=== PATIENT | female | born 1965 | race Caucasian/White ===

== ENCOUNTER → 2018-06-22 | Outpatient (CLI) | payer OTHER, SELFPAY ==
[2018-06-22 11:38] VITALS: BMI 33.5
[2018-06-22 14:39] LABS: Anion Gap 5 (5-15); BUN 15 mg/dL (7-18); BUN/Creat Ratio 24.6 RATIO (10-20); Calcium,Total 8.8 mg/dL (8.5-10.1); Chloride 110 mmol/L (98-107); Creatinine, Serum 0.61 mg/dL (0.55-1.02); EST Glomerular Filtration Rate 108 mL/min (>60); Est Glom Filt Rate - Afr Amer 131 mL/min (>60); Glucose 83 mg/dL (74-106); Potassium 3.9 mmol/L (3.5-5.1); Sodium Level 140 mmol/L (136-145)
[2018-06-22 14:49] LABS: Vitamin D,25 Hydroxy 16.9 ng/mL (29.95-100.01)
== END | disposition home or self-care (01) ==
LOC: BIMLAB 12:08
PROVIDERS: PCP Family Medicine; Visit Provider Family Medicine
DX: I10 Essential (primary) hypertension (principal); R79.89 Other specified abnormal findings of blood chemistry
CPT/HCPCS: 36415; 80048; 82306

== ENCOUNTER → 2019-05-04 14:56 | Outpatient (CLI) | payer OTHER, SELFPAY ==
[2019-05-04 14:17] VITALS: BMI 33.5
[2019-05-04 16:06] LABS: Anion Gap 7 (5-15); BUN 16 mg/dL (7-18); BUN/Creat Ratio 21.6 RATIO (10-20); Calcium,Total 8.6 mg/dL (8.5-10.1); Chloride 108 mmol/L (98-107); Creatinine, Serum 0.74 mg/dL (0.55-1.02); EST Glomerular Filtration Rate 86 mL/min (>60); Est Glom Filt Rate - Afr Amer 104 mL/min (>60); Glucose 136 mg/dL (74-106); Potassium 3.8 mmol/L (3.5-5.1); Sodium Level 141 mmol/L (136-145)
[2019-05-06 08:08] LABS: Vitamin D,25 Hydroxy 27.1 ng/mL
== END ==
PROVIDERS: PCP Family Medicine; Referring Provider Family Medicine; Visit Provider Family Medicine
DX: R79.89 Other specified abnormal findings of blood chemistry (principal); I10 Essential (primary) hypertension
CPT/HCPCS: 36415; 80048; 82306

== ENCOUNTER → 2020-07-03 10:56 | Outpatient (CLI) | payer OTHER, SELFPAY ==
[2020-07-03 10:29] VITALS: BMI 33.5
[2020-07-03 12:50] LABS: ALB/GLOB Ratio 0.9 RATIO (0.9-2.4); AST(SGOT) 12 U/L (15-37); Alanine Aminotransfer ALT/SGPT 21 U/L (13-56); Albumin, Serum 3.5 g/dL (3.2-5.0); Alkaline Phosphatase 96 U/L (45-117); Anion Gap 6 (5-15); BUN 17 mg/dL (7-18); BUN/Creat Ratio 24.5 RATIO (10-20); Calcium,Total 8.9 mg/dL (8.5-10.1); Chloride 109 mmol/L (98-107); Cholesterol 198 mg/dL (200); Creatinine, Serum 0.69 mg/dL (0.55-1.02); EST Glomerular Filtration Rate 93 mL/min (>60); Est Glom Filt Rate - Afr Amer 112 mL/min (>60); Globulin 3.8 g/dL (2.2-4.2); Glucose 111 mg/dL (74-106); High Density Lipoprotein 72 mg/dL; Protein, Total 7.3 g/dL (6.4-8.2); Sodium Level 141 mmol/L (136-145); Triglycerides 68 mg/dL; Very Low Density Lipoprotein 14 mg/dL (5-40)
== END ==
PROVIDERS: PCP Family Medicine; Referring Provider Family Medicine; Visit Provider Family Medicine
DX: I10 Essential (primary) hypertension (principal)
CPT/HCPCS: 36415; 80053; 80061

== ENCOUNTER → 2021-06-26 | Outpatient (CLI) | payer OTHER, SELFPAY ==
[2021-06-26 12:30] LABS: Absolute Lymphocyte Count 1.65 X10^3/uL (0.83-4.51); Absolute Neutrophil Count 2.7 X10^3/uL (2.0-7.7); Basophil# 0.04 X10^3/uL; Basophil% 0.8 % (0-1); Eosinophil# 0.08 X10^3/uL; Eosinophils% 1.6 % (0-5); Hematocrit 43.8 % (37-47); Hemoglobin 14.3 g/dL (12.0-15.0); Lymphocyte # 1.65 X10^3/ul (0.83-4.51); Lymphocyte % 33.8 % (19-41); Mean Corp Hgb Conc 32.6 g/dL (32-36); Mean Corpuscular Hgb 30.5 pg (27.0-32.0); Mean Corpuscular Volume 93.4 fL (81-99); Mean Platelet Vol. 9.8 fl (6.2-12.0); Monocyte# 0.41 X10^3/uL; Monocyte% 8.4 % (0-10); NRBC Flagged by Analyzer 0 % (0-5); Neutrophil # 2.69 X10^3/uL (2.7-7.7); Neutrophil % 55.2 % (47-70); Platelet Count 317 K/mm3 (150-450); RBC Distribution Width CV 12.9 % (11.6-14.6); RBC Distribution Width SD 44.6 fl (35.1-43.9); Red Blood Count 4.69 M/mm3 (4.2-5.4); White Blood Count 4.9 K/mm3 (4.4-11.0)
[2021-06-26 12:34] LABS: AST(SGOT) 17 U/L (15-37); Alanine Aminotransfer ALT/SGPT 26 U/L (13-56); Albumin, Serum 3.8 g/dL (3.2-5.0); Alkaline Phosphatase 96 U/L (45-117); Anion Gap 2 (5-15); BUN 20 mg/dL (7-18); BUN/Creat Ratio 28.5 RATIO (10-20); Calcium,Total 9.3 mg/dL (8.5-10.1); Chloride 108 mmol/L (98-107); EST Glomerular Filtration Rate 91 mL/min (>60); Est Glom Filt Rate - Afr Amer 111 mL/min (>60); Globulin 3.8 g/dL (2.2-4.2); Glucose 105 mg/dL (74-106); Potassium 4.3 mmol/L (3.5-5.1); Protein, Total 7.6 g/dL (6.4-8.2); Sodium Level 139 mmol/L (136-145)
== END | disposition home or self-care (01) ==
LOC: BIMLAB 11:12
PROVIDERS: PCP Family Medicine; Referring Provider Family Medicine; Visit Provider Family Medicine
DX: I10 Essential (primary) hypertension (principal); Z98.890 Other specified postprocedural states
CPT/HCPCS: 36415; 80053; 85025

== ENCOUNTER → 2022-02-03 | Outpatient (CLI) | payer OTHER, SELFPAY ==
[2022-02-03 16:49] LABS: Absolute Lymphocyte Count 2.88 X10^3/uL (0.83-4.51); Absolute Neutrophil Count 3.6 X10^3/uL (2.0-7.7); Basophil# 0.05 X10^3/uL; Basophil% 0.7 % (0-1); Eosinophil# 0.14 X10^3/uL; Eosinophils% 1.9 % (0-5); Hematocrit 42.4 % (37-47); Hemoglobin 13.6 g/dL (12.0-15.0); Lymphocyte # 2.88 X10^3/ul (0.83-4.51); Lymphocyte % 39.8 % (19-41); Mean Corp Hgb Conc 32.1 g/dL (32-36); Mean Corpuscular Hgb 31.1 pg (27.0-32.0); Monocyte# 0.58 X10^3/uL; NRBC Flagged by Analyzer 0 % (0-5); Neutrophil # 3.57 X10^3/uL (2.7-7.7); Neutrophil % 49.3 % (47-70); Platelet Count 312 K/mm3 (150-450); RBC Distribution Width CV 13.2 % (11.6-14.6); Red Blood Count 4.37 M/mm3 (4.2-5.4); White Blood Count 7.2 K/mm3 (4.4-11.0)
[2022-02-03 17:49] LABS: ALB/GLOB Ratio 1.2 RATIO (0.9-2.4); AST(SGOT) 14 U/L (15-37); Alanine Aminotransfer ALT/SGPT 27 U/L (13-56); Albumin, Serum 3.6 g/dL (3.2-5.0); Alkaline Phosphatase 95 U/L (45-117); Anion Gap 7 (5-15); BUN 19 mg/dL (7-18); BUN/Creat Ratio 24.2 RATIO (10-20); CRP < 2.90 mg/L (0.0-3.0); Calcium,Total 8.9 mg/dL (8.5-10.1); Chloride 106 mmol/L (98-107); Creatinine, Serum 0.78 mg/dL (0.55-1.02); EST Glomerular Filtration Rate 80 mL/min (>60); Est Glom Filt Rate - Afr Amer 97 mL/min (>60); Globulin 3.1 g/dL (2.2-4.2); Glucose 92 mg/dL (74-106); Potassium 4.1 mmol/L (3.5-5.1); Protein, Total 6.7 g/dL (6.4-8.2); Sodium Level 141 mmol/L (136-145)
== END | disposition home or self-care (01) ==
LOC: BIMLAB 15:42
PROVIDERS: PCP Family Medicine
DX: K62.5 Hemorrhage of anus and rectum (principal); K52.9 Noninfective gastroenteritis and colitis, unspecified
CPT/HCPCS: 36415; 80053; 85025; 86140

== ENCOUNTER → 2022-06-08 | Outpatient (CLI) | payer OTHER, SELFPAY | END | disposition home or self-care (01) | LOC: SL 10:04 | PROVIDERS: PCP Family Medicine; Referring Provider Internal Medicine; Visit Provider Internal Medicine | DX: G47.33 Obstructive sleep apnea (adult) (pediatric) (principal) | CPT/HCPCS: 98960; G0463 ==

== ENCOUNTER → 2022-06-10 | Outpatient (CLI) | payer OTHER, SELFPAY | END | disposition home or self-care (01) | LOC: SL 20:05 | PROVIDERS: PCP Family Medicine; Referring Provider Internal Medicine; Visit Provider Internal Medicine | DX: G47.33 Obstructive sleep apnea (adult) (pediatric) (principal) | CPT/HCPCS: 95810 ==

== ENCOUNTER → 2022-06-30 | Outpatient (CLI) | payer OTHER, SELFPAY | END | disposition home or self-care (01) | LOC: SL 10:19 | PROVIDERS: PCP Family Medicine; Visit Provider Internal Medicine | DX: G47.33 Obstructive sleep apnea (adult) (pediatric) (principal); Z99.89 Dependence on other enabling machines and devices ==

== ENCOUNTER → 2024-08-23 | Outpatient (CLI) | payer OTHER, SELFPAY ==
[2024-08-23 18:59] LABS: AST(SGOT) 23 U/L (<=31); Alanine Aminotransfer ALT/SGPT 19 U/L (<=34); Albumin, Serum 4.2 g/dL (3.4-4.8); Alkaline Phosphatase 90 U/L (35-104); Anion Gap 12 (5-15); BUN 16 mg/dL (4-19); BUN/Creat Ratio 21.0 RATIO (10-20); Calcium,Total 9.3 mg/dL (7.6-11.0); Carbon Dioxide 22.8 mmol/L (21.0-32.0); Chloride 106 mmol/L (98-108); Globulin 2.6 g/dL (2.2-4.2); Glucose 132 mg/dL (70-99); Potassium 3.9 mmol/L (3.3-5.1)
== END | disposition home or self-care (01) ==
LOC: MTLAB 15:04
PROVIDERS: PCP Family Medicine; Referring Provider Family Medicine; Visit Provider Family Medicine
DX: I48.0 Paroxysmal atrial fibrillation (principal); I10 Essential (primary) hypertension
CPT/HCPCS: 36415; 80053; 84443

== ENCOUNTER → 2024-10-17 | Outpatient (CLI) | payer OTHER, SELFPAY ==
--- OUTSIDE RECORDS SUMMARY | 2024-10-17 06:32 | XMS RPT_ITS | CCD ---
Author Organization [facility] Care Team Providers Care Enrollment Eligibility Representative Name Role Phone JACQUIE AGUDELO Unavailable Unavailable BROWN, JACQUIE Unavailable Unavailable Jacquie Agudelo Primary Care Provider [phone] Dr. Jacquie Agudelo Primary Care Provider [phone] Dr. Jacquie Agudelo Attending Provider [phone] Dr. Jacquie Agudelo Referring Provider [phone] Jacquie Agudelo Primary Care Provider [phone] Dr. Jacquie Agudelo Primary Care Provider [phone] Dr. Jacquie Agudelo Referring Provider [phone] Dr. Reza Gonzalez Attending Provider [phone] Jacquie Agudelo Primary Care Provider [phone] TORIE ISBELL Attending Unavailable TORIE ISBELL Referring Unavailable BROWN, JACQUIE Primary Care Unavailable HAY SINCLAIR Attending Unavailable MAGNUS, JACQUIE Primary Care Unavailable HAY SINCLAIR Attending Unavailable JACQUIE AGUDELO Primary Care Unavailable Dr. Jacquie Agudelo DO Primary Care Provider Dr. Jacquie Agudelo DO Attending Provider [phone] Dr. Jacquie Agudelo DO Referring Provider [phone] Wallace MANN, Dr. Robledo Attending Provider Elaina Hernández Attending Provider [phone] BrownJacquie R Attending Unavailable Brown, Jacquie R Referring Unavailable Brown, Jacquie R Primary Care Unavailable Venkat Gonsalez Attending Unavailable Brown, Jacquie R Referring Unavailable Brown, Jacquie R Primary Care Unavailable Brown, Jacquie R Attending Unavailable Brown, Jacquie R Referring Unavailable Brown, Jacquie R Primary Care Unavailable Wallace, Venkat Attending Unavailable Wallace, Venkat Referring Unavailable MagnusJacquie R Primary Care Unavailable Wallace, Venkat Attending Unavailable Wallace, Venkat Referring Unavailable MagnusJacquie R Primary Care Unavailable Mary Grace Cat NP Attending Unavailable MagnusJacquie R Referring Unavailable BrownChonJacquie R Primary Care Unavailable Elaina Coleman Attending Unavailable BrownJacquie R Referring Unavailable BrownChonJacquie R Primary Care Unavailable Medications Current Medications Medication Drug Class(es) Dates Sig (Normalized) Sig (Original) apixaban 5 mg oral tablet (20 sources) Factor Xa Inhibitor Start: 04-11-2022 End: 01-24-2024 take 1 tablet by mouth twice daily Apixaban (Eliquis) 5 mg tablet Active 5 mg PO TWICE A DAY May 26, 2022 12:00am biotin 5 mg oral capsule (20 sources) Start: 07-03-2020 take 1 capsule by mouth once daily Biotin 5 mg capsule Active 5 mg PO DAILY July 03, 2020 12:00am biotin 5000 MCG capsule Take by mouth daily. Active Biotin 10 MG CAP S Take by mouth 0 Active carvedilol 12.5 mg oral tablet (4 sources) alpha-Adrenergic Bonilla, beta-Adrenergic Bonilla Start: 08-23-2024 take 1 tablet by mouth twice daily at mealtime Carvedilol (Coreg) 12.5 mg tablet Active 12.5 mg PO TWICE A DAY 180 August 23, 2024 12:00am must administer with a meal/food cholecalciferol 0.025 mg oral capsule (20 sources) Vitamin D Start: 06-22-2018 take 1 capsule by mouth once daily Cholecalciferol (Vitamin D3) 1,000 unit capsule Active 1000 U PO DAILY June 22, 2018 12:00am take 1 capsule by mouth once jose ly cholecalciferol (Vitamin D-3) 25 MCG (1000 UT) capsule Take 3,000 Units by mouth daily. Active ergocalciferol 1.25 mg oral capsule (1 source) Provitamin D2 Compound Start: 07-05-2018 take 1 capsule by mouth every week vitamin D (ERGOCALCIFEROL) 50291 units CAPS capsule Take 1 capsule by mouth once a week for 12 doses 12 capsule 0 07/05/2018 Active hydroCHLOROthiazide 12.5 mg oral capsule (3 sources) Thiazide Diuretic Start: 07-04-2024 End: 07-04-2025 take 1 capsule by mouth once daily in the morning hydroCHLOROthiazide (Microzide) 12.5 MG capsule Take 1 capsule (12.5 mg) by mouth every morning. 30 capsule 07/04/2024 07/04/2025 Active ibuprofen 600 mg oral tablet (2 sources) Nonsteroidal Anti-inflammator y Drug Start: 10-03-2024 End: 10-03-2024 take 1 tablet by mouth three times daily at mealtime Ibuprofen 600 mg tablet Active 600 mg PO THREE TIMES A DAY 15 October 03, 2024 9:26am Take with food, monitor for signs of bleeding lisinopril 40 mg oral tablet (20 sources) Angiotensin Converting Enzyme Inhibitor Start: 01-04-2024 End: 06-27-2024 take 1 tablet by mouth once daily Lisinopril 40 mg tablet Active 40 mg PO daily February 04, 2024 1:00am Start: 07-20-2023 End: 01-04-2024 take 1 tablet by mouth once daily lisinopril 20 MG tablet Take 1 tablet (20 mg) by mouth daily. 90 tablet 3 07/20/2023 01/04/2024 Discontinued Start: 01-12-2023 End: 01-12-2024 take 1 tablet by mouth once daily lisinopril 10 MG tablet Take 1 tablet (10 mg) by mouth daily. 90 tablet 3 01/12/2023 01/12/2024 Active Start: 05-06-2022 End: 02-04-2024 take 1 tablet by mouth once daily Lisinopril 5 mg tablet Discontinued 5 mg PO DAILY May 26, 2022 12:00am February 04, 2024 3:26pm Completed/Discontinued Medications Medication Drug Class(es) Dates Sig (Normalized) Sig (Original) Acetaminophen (2 sources) Start: 04-09-2022 End: 04-11-2022 take 1 tablet by mouth every six hours as needed for pain and fever acetaminophen (Tylenol) tablet 650 mg amoxicillin 875 mg / clavulanate 125 mg oral tablet (8 sources) Penicillin-class Antibacterial Start: 02-26-2021 End: 06-26-2021 Amoxicillin-Pot Clavulanate (Augmentin) 875-125 mg tablet Discontinued 1 {tbl} PO TWICE A DAY 14 February 26, 2021 1:00am June 26, 2021 10:28am atenolol 25 mg oral tablet (20 sources) beta-Adrenergic Bonilla Start: 12-29-2014 End: 05-26-2022 take 1 tablet by mouth once daily Atenolol 25 mg tablet Discontinued 25 mg PO DAILY 90 0 May 29, 2020 9:20am July 03, 2020 10:41am benzonatate 200 mg oral capsule (8 sources) Non-narcotic Antitussive Start: 02-26-2021 End: 06-26-2021 take 1 capsule by mouth three times daily as needed for cough Benzonatate 200 mg capsule Discontinued 200 mg PO THREE TIMES A DAY as needed for cough 30 0 February 26, 2021 1:00am June 26, 2021 10:28am cinnamon bark 500 mg oral capsule (17 sources) End: 01-04-2024 take 1 capsule by mouth once daily cinnamon 500 MG capsule Take 500 mg by mouth daily. 01/04/2024 Discontinued 5 ml dilTIAZem hydrochloride 5 mg/ml injection (2 sources) Calcium Channel Bonilla Start: 04-09-2022 End: 04-09-2022 dilTIAZem (Cardizem) injection 15 mg doxycycline hyclate 100 mg oral tablet (8 sources) Tetracycline-class Drug Start: 09-13-2019 End: 07-03-2020 take 1 tablet by mouth twice daily Doxycycline Hyclate 100 mg tablet Discontinued 100 mg PO TWICE A DAY 20 0 September 13, 2019 12:00am July 03, 2020 10:27am 20 ml etomidate 2 mg/ml injection (4 sources) General Anesthetic Start: 04-09-2022 End: 04-09-2022 etomidate (Amidate) injection Start: 04-09-2022 End: 04-09-2022 etomidate (Amidate) injectio n 10 mg 2 ml fentaNYL 0.05 mg/ml injection (2 sources) Opioid Agonist Start: 04-09-2022 End: 04-09-2022 fentaNYL (Sublimaze) injection 75 mcg flecainide acetate 50 mg oral tablet (20 sources) Antiarrhythmic Start: 08-19-2022 End: 09-22-2024 take 1 tablet by mouth once daily Flecainide 50 mg tablet Discontinued 50 mg PO DAILY August 19, 2022 12:00am September 22, 2024 11:11am Start: 04-29-2022 End: 07-24-2025 take 1 tablet by mouth twice daily flecainide (Tambocor) 50 MG tablet Take 1 tablet (50 mg) by mouth 2 times daily. 180 tablet 1 01/21/2024 07/24/2024 Discontinued (Reorder) guaiFENesin 400 mg oral tablet (8 sources) Start: 02-26-2021 End: 06-26-2021 take 1 tablet by mouth three times daily as needed for cough Guaifenesin 400 mg tablet Discontinued 400 mg PO THREE TIMES A DAY as needed for congestion, cough 30 0 February 26, 2021 1:00am June 26, 2021 10:28am 250 ml heparin sodium, porcine 100 unt/ml injection (8 sources) Unfractionated Heparin, Anti-coagulant Start: 04-09-2022 End: 04-11-2022 heparin 25,000 units in dextrose 5% 250mL infusion (premix) Start: 04-09-2022 End: 04-11-2022 heparin injection 2,000 Unit s Start: 04-09-2022 End: 04-11-2022 heparin injection 4,000 Unit s metoprolol tartrate 50 mg oral tablet (20 sources) beta-Adrenergic Bonilla Start: 04-26-2022 metopr olol tartrate (Lopressor) injection 5 mg Start: 04-26-2022 metoprolol tar trate (Lopressor) 5 MG/5ML injection - Pyxis ADS Override Pull Start: 04-10-2022 End: 08-23-2024 take 1 tablet by mouth twice daily Metoprolol Tartrate 50 mg tablet Discontinued 50 mg PO TWICE A DAY May 26, 2022 12:00am August 23, 2024 2:27pm Start: 04-10-2022 End: 04-10-2022 metoprolol tartrate (Lopress or) tablet 25 mg Start: 04-09-2022 metoprolol tar trate (Lopressor) tablet 100 mg Start: 04-09-2022 metoprolol tar trate (Lopressor) injection 5 mg Start: 04-09-2022 metoprolol tar trate (Lopressor) 5 MG/5ML injection - Pyxis ADS Override Pull ondansetron ODT (Zofran-ODT) disintegrating tablet 4 mg (2 sources) Start: 04-09-2022 End: 04-11-2022 take 1 tablet by mouth every eight hours as needed for nausea and vomiting ondansetron ODT (Zofran-ODT) disintegrating tablet 4 mg polyethylene glycol 3350 72042 mg powder for oral solution (2 sources) Osmotic Laxative Start: 04-09-2022 End: 04-11-2022 take 17 g by mouth every twenty-four hours as needed for constipation 17 g, Oral, Daily PRN, constipation, Starting on [facility] 04/09/22 at 2013 1st line for treatment of constipation - give scheduled if no bowel movement in past 24 hours. polyethylene glycol 3350 185982 mg / potassium chloride 2970 mg / sodium bicarbonate 6740 mg / sodium chloride 5860 mg / sodium sulfate 57626 mg powder for oral solution (2 sources) Osmotic Laxative Start: 04-10-2022 End: 04-11-2022 polyethylene glycol (GoLYTELY) solution 2,000 mL microencapsulated potassium chloride 10 meq extended release oral tablet (2 sources) Start: 04-09-2022 End: 04-09-2022 potassium chloride CR (Klor-Con M10) ER tablet 40 mEq Sod Sulf-Pot Chloride-Mag Sulf (4 sources) Start: 08-19-2022 End: 02-04-2024 take 1.479 tablets by mouth once Sod Sulf-Pot Chloride-Mag Sulf (Sutab) 1.479-0.188- 0.225 gram tablet Discontinued {tbl} PO per package directions August 19, 2022 12:00am February 04, 2024 3:26pm 5 ml sodium chloride 9 mg/ml injection (14 sources) Start: 04-10-2022 End: 04-11-2022 sodium chloride 0.9% (NS) flush 10 mL Start: 04-09-2022 End: 04-11-2022 sodium chloride 0.9 % infusi on Sutab 3461-388-503 MG tablet (3 sources) Start: 02-10-2022 End: 05-05-2022 Sutab 5193-434-747 MG tablet Start: 02-10-2022 Sutab 1479-225 -188 MG tablet Problems Active Problems Problem Classification Problem Date Documented Date Episodic/Chronic Cardiac dysrhythmias (20 sources) Atrial fibrillation with rapid ventricular response; Translations: [Unspecified atrial fibrillation] Onset: 04-09-2022 Chronic Disorders of teeth and jaw (7 sources) Temporomandibular joint disorder; Translations: [Unspecified temporomandibular joint disorder, unspecified side] Onset: 09-18-2024 08-23-2024 Episodic Endometriosis (20 sources) Endometriosis (clinical); Translations: [Endometriosis, unspecified] Onset: 02-12-2015 02-12-2015 Chronic Essential hypertension (20 sources) Hypertensive disorder; Translations: [Essential (primary) hypertension] Onset: 02-12-2015 02-12-2015 Chronic Malaise and fatigue (2 sources) Fatigue; Translations: [Other fatigue] 09-18-2024 Episodic Menstrual disorders (20 sources) Disorder of menstruation; Translations: [Irregular menstruation, unspecified] Onset: 02-12-2015 02-12-2015 Chronic Nutritional deficiencies (2 sources) Vitamin D deficiency; Translations: [Vitamin D deficiency, unspecified] 09-18-2024 Chronic Other lower respiratory disease (7 sources) Snoring; Translations: [Snoring] 05-26-2022 Episodic Comment on above: 56-year-old female r eferred to [facility] for consultation for sleep apnea, referred by her primary in the setting of paroxysmal atrial fibrillation.Her [place] sleepiness score today is 6, the mMRC score is 1.As above, rule out sleep apnea in this patient with a strong family history Other lower respiratory disease (3 sources) Snoring; Translations: [Other respiratory abnormalities] 05-26-2022 Episodic Other lower respiratory disease (1 source) Cough; Translations: [Acute cough] 08-05-2022 Episodic Other non-traumatic joint disorders (3 sources) Pain in right knee; Translations: [Right knee pain] Onset: 10-03-2024 10-03-2024 Episodic Other nutritional; endocrine; and metabolic disorders (8 sources) Obesity; Translations: [Obesity, unspecified] 05-26-2022 Chronic Comment on above: BMI 37 Other nutritional; endocrine; and metabolic disorders (4 sources) Obesity, unspecified; Translations: [Obesity, unspecified] Chronic Regional enteritis and ulcerative colitis (2 sources) Crohn's disease; Translations: [Crohn's disease, unspecified, without complications] 09-18-2024 Chronic Residual codes; unclassified (6 sources) Obstructive sleep apnea (adult) (pediatric); Translations: [Obstructive sleep apnea (adult)(pediatric)] Onset: 07-04-2024 05-26-2022 Chronic Residual codes; unclassified (12 sources) Obstructive sleep apnea syndrome; Translations: [Obstructive sleep apnea (adult) (pediatric)] 01-12-2023 Chronic Comment on above: AutoPap with AHI 14. 4 baseline Residual codes; unclassified (1 source) Other specified postprocedural states; Translations: [Other postprocedural status] Episodic Residual codes; unclassified (2 sources) Acquired absence of other specified parts of digestive tract; Translations: [Acquired absence of other specified parts of digestive tract] Onset: 12-07-2021 Episodic Past or Other Problems Problem Classification Problem Date Documented Da te Episodic/Chronic Gastrointestinal hemorrhage (20 sources) Blood-tinged feces; Translations: [Melena] Onset: 04-09-2022 04-10-2022 Episodic Other screening for suspected conditions (not mental disorders or infectious disease) (9 sources) Patient encounter status; Translations: [Encounter for screening mammogram for malignant neoplasm of breast] Onset: 02-03-2024 01-26-2023 Episodic Residual codes; unclassified (20 sources) History of partial resection of colon; Translations: [Acquired absence of other specified parts of digestive tract] Onset: 02-12-2015 02-12-2015 Episodic Results Test Name Value Interpretation Reference Range Facility Internal Medicine Office Vis [facility] 10-03-2024 Internal Medicine Office Visit [facility] [place] [address] OFFICE VISIT Date of Service: 10/03/24 MR#: [id number] Acct: [id number] Name: LINSEY JENSEN Rep #: [id number] : 1965 Provider: MAURIZIO wallis Age/Sex: 58/F Location: [facility] Status: Signed Intake Vital Signs 09/22/24 11:07 10/03/24 08:45 Height 5 ft 8 in 5 ft 8 in Weight: 244 lb 243 lb 4 oz BMI 37.0 37.0 BP 131/80 H 120/84 H Blood Pressure Location Lt brachial Lt brachial Position Sitting Sitting Respiration 18 16 Pulse 89 85 Pulse Source Monitor Monitor Temp 97.4 F L Temp Source Temporal Pulse Oximetry (%) 97 Oxygen Delivery Method room air Intake Visit Reasons: Leg pain. Around knee. Chief Complaint: Acute R Knee Pain [employer] Required: No Accompanied by: Self Is patient in pain?: No (no pain, but will later in the day) Allergies No Known Allergies Allergy (Unverified 10/03/24 08:40) Medications ???Medication ???Instructions ???Recorded ???Confirmed ???Type cholecalciferol (vitamin D3) 25 1,000 unit PO DAILY 06/22/1810/03 History mcg (1,000 unit) capsule biotin 5 mg capsule 5 mg PO DAILY 07/03/20 10/03/24 Hi story apixaban 5 mg tablet (Eliquis) 5 mg PO BID 05/26/22 10/03/24 Hist ory lisinopril 40 mg tablet 40 mg PO QDAY 02/04/24 10/03/24 Hi story carvedilol 12.5 mg tablet (Coreg) 12.5 mg PO BID #180 tabs 08/23/24 10/03/24 Rx ibuprofen 600 mg tablet 600 mg PO TID #15 tabs 10/03/24 Rx Have you fallen in the past year?: Yes (Early Feb. ) Nurse's Note: 58 year old F patient presents with R knee pain. Says the pain is mainly in the evenings after physical activity throughout the day. The pain is a 7/10 at night, sometimes leaves her in tears before bed. Says the pain is mostly medially toward the distal part of the knee, away from the knee cap. Has little to no edma around the knee or location of pain. Says there was no injury to cause the pain. [facility] Medical History Vitamin D deficiency Crohn disease Fatigue TMJ (temporomandibular joint syndrome) TATIANA (obstructive sleep apnea) Obesity Paroxysmal atrial fibrillation Hypertension Surgical History Hx of appendectomy History of intestinal surgery History of lung surgery Family History Grandmother Colon cancer Father Cancer skin Bone cancer Heart disease Social History Smoking Status: Never smoker alcohol intake: never substance use type: does not use what type of physical activity do you participate in: none HPI HPI Chief Complaint: Acute R Knee Pain Details: LINSEY JENSEN, is a 58 F who presents to the office today for right knee pain x 2 weeks. She states it started without injury and continues to notice the pain throughout the day to the inner aspect of the knee and it is worse at night. It is hard for her to be comfortable at night as that is when she notices that the pain is worse and it improves throughout the night and is better in the morning. She reports pain on the right inner aspect of the knee that feels deep and worse after activity. She denies any trauma or recent injury. She has been able to complete ADLs. She has taken ibuprofen twice over the last 2 weeks and also used ice on the knee and it seems to help somewhat. She states in the mornings it feels well but by evening it is very painful. Denies severe pain at this time. Past medical history of Crohn's disease, fatigue, sleep apnea, A-fib, obesity, and hypertension. ROS Const Constitutional: No body ache, chills, excessive sweating, fatigue, fever(s), frequent falls, headache(s), snoring, weakness, weight change, sleep problems or change in appetite Eyes Eyes: No blurry vision, change in vision, eye pain or Light sensitivity ENT ENT: No abnormal hearing, ear or mastoid pain, tinnitus, nasal congestion, headache(s), neck pain or sore throat Resp Respiratory: No cough, shortness of breath, snoring or wheezing Cardio Cardiology: No chest pain at rest, chest pain with exertion, excessive sweating, shortness of breath, lightheadedness, orthopnea or palpitations Gastro GI: No abdominal pain, change in bowel habits, constipation, cramping, diarrhea, nausea/dyspepsia or vomiting Genitourinary-Female: No burning urination, painful urination, urinary incontinence, urinary frequency, abnormal vaginal bleeding or pelvic pain Musc Musculoskeletal: Positive for other; No abnormal gait, joint pain, back pain, limited range of motion, neck pain, numbness or tingling Skin Skin: No dry skin, redness, lesions, itchy eyes, rash or wounds Neuro Neurology: No (more content not included)... [facility] Cardiology Visit Reporton Cardiology Visit Report [facility] [address] [place] [address] OFFICE VISIT Date of Service: 09/22/24 MR#: [id number] Acct: [id number] Name: LINSEY JENSEN Rep #: [id number] : 1965 Provider: Dr. Venkat Gonsalez MD Age/Sex: 58/F Location: [facility] Status: Signed HPI HPI History of Present Illness Details: 58-year-old lady who had presented to the hospital in [place] during the time of her colonoscopy approximately 2 years ago. At that time she was noted to be in atrial fibrillation with a rapid ventricular response rate and she was also noted to be hypotensive. She was started on metoprolol and Eliquis admitted to the hospital and apparently converted into sinus rhythm during the night. She had been offered synchronized DC cardioversion but she had declined it. She says that approximately a month afterwards she presented again with a similar thing and spontaneously converted. This was after she had been given intravenous metoprolol. As an outpatient it appears that she was started on flecainide and then asked to see her primary physician for control of her blood pressure. She tells me that her primary physician was not keen on her continuing the flecainide and so she decided that she was going to stop this. She has been diagnosed with obstructive sleep apnea and now wears a CPAP mask her blood pressure has been much better controlled. Her ejection fraction by echocardiogram in March 2022 demonstrated an ejection fraction of 74%. She has had no dizziness or diaphoresis no near-syncope or syncope. Her physical exam is unremarkable her electrocardiogram demonstrates sinus rhythm with a rate of 79 bpm and no acute changes. Intake Vital Signs 08/23/24 14:06 09/22/24 11:07 Height 5 ft 8 in 5 ft 8 in Weight: 248 lb 4 oz 244 lb BMI 37.7 37.0 BP 136/84 H 131/80 H Blood Pressure Location Lt brachial Lt brachial Position Sitting Sitting Respiration 16 18 Pulse 75 89 Pulse Source Monitor Monitor Temp 97.4 F L Pulse Oximetry (%) 96 Intake Visit Reasons: ESTABLISH (SELF) [employer] Required: No Accompanied by: Self Is patient in pain?: No Allergies No Known Allergies Allergy (Unverified 09/22/24 11:07) Medications ???Medication ???Instructions ???Recorded ???Confirmed ???Type cholecalciferol (vitamin D3) 25 1,000 unit PO DAILY 06/22/1809/22 History mcg (1,000 unit) capsule biotin 5 mg capsule 5 mg PO DAILY 07/03/20 09/22/24 Hi story apixaban 5 mg tablet (Eliquis) 5 mg PO BID 05/26/22 09/22/24 Hist ory lisinopril 40 mg tablet 40 mg PO QDAY 02/04/24 09/22/24 Hi story carvedilol 12.5 mg tablet (Coreg) 12.5 mg PO BID #180 tabs 08/23/24 09/22/24 Rx Have you fallen in the past year?: Yes PFSH Medical History Vitamin D deficiency Crohn disease Fatigue TMJ (temporomandibular joint syndrome) TATIANA (obstructive sleep apnea) Obesity Paroxysmal atrial fibrillation Hypertension Surgical History Hx of appendectomy History of intestinal surgery History of lung surgery Family History Grandmother Colon cancer Father Cancer skin Bone cancer Heart disease Social History Smoking Status: Never smoker alcohol intake: never substance use type: does not use what type of physical activity do you participate in: none ROS Const Const: Negative for fatigue or weakness ENT ENT: Negative for dizziness or balance problems Cardio Chest Pain: No Palpitations: No Edema: Bilateral (intermittently) Muscle aches with walking: None Resp Respiratory: Positive for SOB with activity; Negative for SOB at rest or SOB orthopnea SOB lying down GI GI: Negative nausea, vomiting or heartburn Musc Musc: Negative for muscle weakness or balance problems Neuro Neuro: Negative for dizziness, lightheadedness, near syncope, syncope or weakness Endo Endo: Negative for fatigue Cardiology Exam Const Appearance: cooperative, healthy appearing, no acute distress, well developed and well groomed Nutritional Appearance: average body habitus and well nourished Orientation: alert, awake and oriented x3 Head Head: normal to inspection, normocephalic and atraumatic Ears: hearing grossly normal bilaterally and external ears normal Nose: external nose normal, nares normal, nasal mucous membranes and turbinates normal, septum normal and no nasal discharge Face and Sinus: face symmetric Mouth: oral mucosae normal, tongue normal, oropharynx normal and moist mucous membranes Teeth and gingiva: dentition normal Throat: posterior oropharynx normal, tonsils normal and uvul (more content not included)... [facility] Anion gap in Serum or Plasma Ordered By: Jacquie Agudelo on 08-23-2024 Anion gap [Moles/Vol] 12 mmol/L 5- [facility] BUN/creatinine ratioOrdered By: Jacquie Agudelo on 08-23-2024 Urea nitrogen/Creatinine [Mass ratio] 21.0 mg/mg High 10- [facility] Bilirubin, totalOrdered By: Jacquie Agudelo on 08-23-2024 Bilirubin [Mass/Vol] 0.87 mg/dL 0.00-1.30 [facility] Carbon dioxide, total [Moles /volume] in Central venous bloodOrdered By: Jacquie Agudelo on 08-23-2024 CO2 [Moles/Vol] 22.8 mmol/L 21.0-32.0 [facility] Chloride assayOrdered By: Do vladislav Agudelo on 08-23-2024 Chloride [Moles/Vol] 106 mmol/L 98-108 [facility] Comprehensive Metabolic Prof ilon 08-23-2024 Albumin [Mass/Vol] 4.2 g/dL Normal 3.4-4.8 [facility] Comment on above: Performed By: #### L 364.8120, L500.4050 #### [facility] [address] [place], [place], [id number] Albumin/Globulin [Mass ratio] 1.6 {ratio} Normal 0.9-2.4 [facility] Comment on above: Performed By: #### L 589.9520, L500.4050 #### [facility] [address] [place], [address] ALK PHOS 90 U/L Normal 35-104 [facility] Comment on above: Performed By: #### L 501.9520, L500.4050 #### [facility] [address] [place], [address] ALT [Catalytic activity/Vol] 19 U/L Normal <=34 [facility] Comment on above: Performed By: #### L 501.9520, L500.4050 #### [facility] [address] [place], [address] AST [Catalytic activity/Vol] 23 U/L Normal <=31 [facility] Comment on above: Result Comment: Hemo lysis present, Results??could be affected. ?? Performed By: #### L 501.9520, L500.4050 #### [facility] [address] [place], [address] Bilirubin [Mass/Vol] 0.87 mg/dL Normal 0.00-1.30 [facility] Comment on above: Performed By: #### L 501.9520, L500.4050 #### [facility] [address] [place], [address] BUN/CRE 21.0 RATIO High 10-20 [facility] Comment on above: Performed By: #### L 501.9520, L500.4050 #### [facility] [address] [place], [address] Calcium [Mass/Vol] 9.3 mg/dL Normal 7.6-11.0 [facility] Comment on above: Performed By: #### L 501.9520, L500.4050 #### [facility] [address] [place], [address] Chloride [Moles/Vol] 106 mmol/L Normal 98-108 [facility] Comment on above: Performed By: #### L 501.9520, L500.4050 #### [facility] [address] [place], [address] CO2 [Moles/Vol] 22.8 mmol/L Normal 21.0-32.0 [facility] Comment on above: Performed By: #### L 501.9520, L500.4050 #### [facility] [address] [place], [address] Creatinine [Mass/Vol] 0.75 mg/dL Normal 0.70-1.20 [facility] Comment on above: Performed By: #### L 501.9520, L500.4050 #### [facility] [address] [place], [address] GAP 12 Normal 5-15 [facility] Comment on above: Performed By: #### L 501.9520, L500.4050 #### [facility] [address] [place], [address] GFR/1.73 sq M.predicted among non-blacks MDRD (S/P/Bld) [Vol rate/Area] 91 mL/min/{1.73_m2} Normal >60 [facility] Comment on above: Result Comment: mL/m in/1.73m2 CKD-EPI Creatinine Equation (2020) Performed By: #### L 501.9520, L500.4050 #### [facility] [address] [place], [address] Globulin (S) [Mass/Vol] 2.6 g/dL Normal 2.2-4.2 [facility] Comment on above: Performed By: #### L 501.9520, L500.4050 #### [facility] [address] [place], [address] Glucose [Mass/Vol] 132 mg/dL High 70-99 [facility] Comment on above: Performed By: #### L 501.9520, L500.4050 #### [facility] [address] [place], [address] Potassium [Moles/Vol] 3.9 mmol/L Normal 3.3-5.1 [facility] Comment on above: Result Comment: Hemo lysis present, Results??could be affected. ?? Performed By: #### L 501.9520, L500.4050 #### [facility] [address] [place], [address] Sodium [Moles/Vol] 141 mmol/L Normal 133-145 [facility] Comment on above: Performed By: #### L 501.9520, L500.4050 #### [facility] [address] [place], [address] T PROT 6.8 g/dL Normal 5.9-8.4 [facility] Comment on above: Performed By: #### L 501.9520, L500.4050 #### [facility] [address] [place], [address] Urea nitrogen [Mass/Vol] 16 mg/dL Normal 4-19 [facility] Comment on above: Performed By: #### L 501.9520, L500.4050 #### [facility] [address] [place], [address] Glomerular filtration rate ( GFR) estimation/1.73 sq m using serum, plasma, or whole bOrdered By: Jacquie Agudelo on 08-23-2024 GFR/1.73 sq M.predicted among non-blacks MDRD (S/P/Bld) [Vol rate/Area] 91 mL/min/{1.73_m2} >60 [facility] Comment on above: mL/min/1.73m2 CKD-EP I Creatinine Equation (2020) Internal Medicine Office Vis max 08-23-2024 Internal Medicine Office Visit [facility] [address] [place] [address] [address] [place] [address] OFFICE VISIT Date of Service: 08/23/24 MR#: [id number] Acct: [id number] Name: LINSEY JENSEN Rep #: [id number] : 1965 Provider: Dr. Jacquie jenkins, DO Age/Sex: 58/F Location: [facility] Status: Signed Intake Vital Signs 02/04/24 07:45 08/23/24 14:06 Height 5 ft 8 in 5 ft 8 in Weight: 249 lb 248 lb 4 oz BMI 37.8 37.7 BP 133/76 H 136/84 H Blood Pressure Location Rt brachial Lt brachial Position Sitting Sitting Respiration 20 H 16 Pulse 76 75 Pulse Source Monitor Monitor Temp 97.4 F L 97.4 F L Temp Source Temporal Pulse Oximetry (%) 98 96 Oxygen Delivery Method room air Intake Visit Reasons: YEARLY Chief Complaint: Yearly Adventure Education Teacher Required: No Accompanied by: Self Is patient in pain?: No Allergies No Known Allergies Allergy (Unverified 08/23/24 14:07) Medications ???Medication ???Instructions ???Recorded ???Confirmed ???Type cholecalciferol (vitamin D3) 25 1,000 unit PO DAILY 06/22/1808/23 History mcg (1,000 unit) capsule biotin 5 mg capsule 5 mg PO DAILY 07/03/20 08/23/24 Hi story apixaban 5 mg tablet (Eliquis) 5 mg PO BID 05/26/22 08/23/24 Hist ory flecainide 50 mg tablet 50 mg PO DAILY 08/19/22 08/23/24 H istory lisinopril 40 mg tablet 40 mg PO QDAY 02/04/24 08/23/24 Hi story carvedilol 12.5 mg tablet (Coreg) 12.5 mg PO BID #180 tabs 08/23/24 08/23/24 Rx Have you fallen in the past year?: No Nurse's Note: Yearly check up. Has been seeing watch repairer apprentice. [facility] Medical History Primary snoring Paroxysmal atrial fibrillation Hypertension Surgical History History of intestinal surgery History of lung surgery Family History Grandmother Colon cancer Father Cancer skin Bone cancer Social History Smoking Status: Never smoker alcohol intake: never substance use type: does not use what type of physical activity do you participate in: none HPI HPI Chief Complaint: Yearly Details: LINSEY JENSEN, is a 58 F who presents to the office today for a checkup on her blood pressure atrial fibrillation and other chronic problems. She has been seeing her watch repairer apprentice because she had paroxysmal atrial fibrillation and he has been filling her blood pressure medications. At her last visit he told her he did not feel was appropriate for him to be managing the blood pressure he would rather have me do it and she also has submitted some of her routine screening testing. She feels quite fatigued and that is her main complaint. She spends most of her days watching and babysitting her grandchildren and at the end of the day she feels very tired. She is concerned about the weight gain and is gained about 40 pounds over the last 6 or 7 years. She has not had a Pap smear or mammogram for some time. ROS Const Constitutional: No body ache, chills, excessive sweating, fatigue, fever(s), frequent falls, headache(s), snoring, weakness, weight change, sleep problems or change in appetite Eyes Eyes: No blurry vision, change in vision, eye pain or Light sensitivity ENT ENT: No abnormal hearing, ear or mastoid pain, tinnitus, nasal congestion, headache(s), neck pain or sore throat Resp Respiratory: No cough, shortness of breath, snoring or wheezing Cardio Cardiology: No chest pain at rest, chest pain with exertion, excessive sweating, shortness of breath, dyspnea on exertion, lightheadedness, orthopnea or palpitations Gastro GI: No abdominal pain, change in bowel habits, constipation, cramping, diarrhea, nausea/dyspepsia or vomiting Genitourinary-Female: No burning urination, painful urination, urinary incontinence, urinary frequency or abnormal vaginal bleeding Musc Musculoskeletal: No abnormal gait, joint pain, back pain, limited range of motion, neck pain, numbness or tingling Skin Skin: No dry skin, redness, lesions, itchy eyes, rash or wounds Neuro Neurology: No abnormal gait, abnormal hearing, abnormal speech, dizziness, weakness, frequent falls, headache(s), memory loss, numbness or tingling Psych Psychiatric: No anxiety, No change in appetite, No depression, No memory loss and No Thoughts of harming yourself/Others Endo Endocrine: No cold intolerance, excessive sweating, fatigue, flushing, heat intolerance, increased thirst/drinking, increased hunger or weight change Aller/Imm Allergy/Immunologic: No itchy eyes, seasonal allergy symptoms, hives or wheezing Glynn/Lymp Hematologic/Lymphatic: No easy bleeding, easy bruising or enlarged lymph nodes Exam Const General: cooperative Nutritional Appearance: (more content not included)... Normal [facility] - Chemistry and C hemistry - challengeOrdered By: Jacquie Agudelo on 08-23-2024 AST [Catalytic activity/Vol] 23 U/L <32 [facility] Comment on above: Hemolysis present, R esults could be affected. Potassium measurement (mass/ volume)Ordered By: Jacquie Agudelo on 08-23-2024 Potassium (Unsp spec) [Mass/Vol] 3.9 mmol/L 3.3-5.1 [facility] Comment on above: Hemolysis present, R esults could be affected. Serum creatinine measurement (mass/volume)Ordered By: Jacquie Agudelo on 08-23-2024 Creatinine [Mass/Vol] 0.75 mg/dL 0.70-1.20 [facility] Serum globulin measurementOr dered By: Jacquie Agudelo on 08-23-2024 Globulin (S) [Mass/Vol] 2.6 g/dL 2.2-4.2 [facility] Serum glucose measurement (m ass/volume)Ordered By: Jacquie Agudelo on 08-23-2024 Glucose [Mass/Vol] 132 mg/dL High 70-99 [facility] Serum or plasma alanine carbajal otransferase (ALT) measurementOrdered By: Jacquie Agudelo on 08-23-2024 ALT [Catalytic activity/Vol] 19 U/L <35 [facility] Serum or plasma albumin citlaly urement (mass/volume)Ordered By: Jacquie Agudelo on 08-23-2024 Albumin [Mass/Vol] 4.2 g/dL 3.4-4.8 [facility] Serum or plasma albumin/glob ulin mass ratioOrdered By: Jacquie Agudelo on 08-23-2024 Albumin/Globulin [Mass ratio] 1.6 {ratio} 0.9-2.4 [facility] Serum or plasma alkaline jesus sphatase measurementOrdered By: Jacquie Agudelo on 08-23-2024 ALP [Catalytic activity/Vol] 90 U/L 35-104 [facility] Serum or plasma calcium citlaly urement (mass/volume)Ordered By: Jacquie Agudelo on 08-23-2024 Calcium [Mass/Vol] 9.3 mg/dL 7.6-11.0 [facility] Serum or plasma urea nitroge n measurement (mass/volume)Ordered By: Jacquie Agudelo on 08-23-2024 Urea nitrogen [Mass/Vol] 16 mg/dL 4-19 [facility] Sodium levelOrdered By: Chon Agudelo on 08-23-2024 Sodium [Moles/Vol] 141 mmol/L 133-145 [facility] TSH DL <= 0.005 mIU/L QnOrde red By: Jacquie Agudelo on 08-23-2024 TSH Qn 1.530 uIU/mL 0.300-4.200 [facility] Thyroid Stim Hormone (TSH)on 08-23-2024 TSH 1.530 uIU/mL Normal 0.300-4.200 [facility] Comment on above: Performed By: #### L 501.9520, L500.4050 #### [facility] [address] [place], [place], [id number] Total proteinOrdered By: Mendez Agudelo on 08-23-2024 Protein [Mass/Vol] 6.8 g/dL 5.9-8.4 [facility] 36on 07-24-2024 36 MATTHIEU 07-04-24 with EKG NOV 01-02-25 07-13-24 BMP/creat 0.73 Notified patient that CBC and BMP are normal Normal [facility] 36 Pt requesting rf of flecainide Pt also would like the results of recent labs Pt last seen 07/04/24 fu 01/02/25. Pharmacy confirmed Normal [facility] 37on 07-04-2024 37 Check your Blood Wor k in 10-14 days Normal [facility] ECG 12 lead - CLINIC PERFORM EDon 07-04-2024 Sinus Rhythm WITHIN NORMAL LIMITS [facility] Office Visiton 07-04-2024 Follow-up visit [id number] Jina Jensen i 1965 F Date Provider Department Center 07/04/2024 [id number] SINCLAIRManuela [facility] None Family History Problem Relation Age of Onset No Known Problems Mother Heart disease Father Skin cancer Father No Known Problems Sister No Known Problems Brother No Known Problems Brother Family Status - Relation Status Age at Mother Alive Father Alive Sister Alive Brother Alive Brother Alive Level of Service:23097 MS OFFICE/OUTPATIENT ESTABLISHED MOD MDM 30 MIN Reason for Visit and Comments: Atrial Fibrillation [80] - PAF Hypertension [359761] Sleep Apnea [348] Normal [facility] Progress Noteon 07-04-2024 Progress Note [facility] [place] [facility]Electrophys iology Follow Up Clinic Note Chief Complaint: Chief Complaint Patient presents with Atrial Fibrillation PAF Hypertension Sleep Apnea History of Present Illness: Linsey Jensen is a 58 y.o. female referred here in Jul 2022 for paroxysms of AFib. She went into A-fib for the first time in Mar 2022 during preparation for a colonoscopy. She was cardioverted unsuccessfully in the ED and then spontaneously converted later that evening. She was discharged on atenolol and Eliquis after a normal echo. She had a similar episode in April 2022 and she was started on flecainide 50 mg twice daily by Linsey Martinez. She presents today feeling well. She has not had any prolonged palpitation, dizziness, or syncope. She does have occasional episodes where she feels her heart fluttering. However, this only last a few minutes a couple times a week. She has not captured them on her Apple Watch. She otherwise denies chest pain, shortness of breath, or decrease in exercise tolerance. She is active though she does not exercise regularly. She was diagnosed with TATIANA by sleep study in May 2022 and now wears a CPAP mask. She reports blood pressures in the 140s to 150s systolic and 80s to 90s diastolic An EKG today shows normal sinus rhythm. An echo in Mar 2022 showed an LVEF of 74% with a normal LA size. Assessment and Plan: 1. Paroxysmal atrial fibrillation: She has had at least 2 documented episodes, and she has reported prior palpitation. She has done well on flecainide and metoprolol. We will continue with the current management. 2. Hypertension: At the last visit I increased her lisinopril to 40 mg daily. Her BP seems to be running still a little high. I will start her on hydrochlorothiazide 12.5 mg daily. She will get blood work in 2 weeks. We spoke about diet and exercise. 3. TATIANA: She is wearing her CPAP mask. Past Medical History: Medical History[1] Past Surgical History Surgical History[2] Family History Family History[3] Social History Social History[4] Medications: Reviewed Allergies: Reviewed Review of Systems: All other systems were reviewed and are negative other than as noted in the HPI. Physical Examination: Vitals: Blood pressure (!) 140/90, pulse 63, height 5' 6 (1.676 m), weight 250 lb 9.6 oz (114 kg), last menstrual period 06/22/2022, SpO2 96%. Constitutional: Appears well kept and looks stated age; in NAD Psychiatric: A &O x3 Mood is pleasant; Affect is appropriate Musculoskeletal: Normocephalic; no joint swelling; gait steady; 5/5 muscle strength bilaterally in upper and lower extremities; no clubbing or cyanosis HEENT: Pupils are equal and round; Conjunctiva are not injected; Sclera are non-icteric; Airway and Nares are patent; Ears without external abnormalities. Mucosa is pink; Dentition is normal Neck: Supple; No JVD or Bruits; No thyromegaly; No lymphadenopathy Respiratory: Lungs are clear with no rales or wheezes. Respiratory effort is normal and symmetrical bilaterally; Good air movement bilaterally Heart: RRR without ectopy; Nl S1 and S2 no mcrg Abdomen: NABS soft, non-tender, non-distended; no organomegaly; no obvious masses Extremities/Skin: No LE edema; Skin warm to touch and well perfused; skin discoloration is absent; Peripheral Pulses intact Neuro: sensation and motor function are grossly normal. Cranial Nerves are grossly intact Laboratory Tests: Lab Results Component Value Date WBC 5.0 07/13/2023 WBC 7.2 04/26/2022 WBC 8.2 04/11/2022 HGB 13.0 07/13/2023 HGB 14.8 04/26/2022 HGB 13.1 04/11/2022 HCT 39.2 07/13/2023 HCT 44.9 04/26/2022 HCT 38.2 04/11/2022 MCV 94.0 07/13/2023 MCV 93.3 04/26/2022 MCV 93.0 04/11/2022 PLT 289 07/13/2023 PLT 328 04/26/2022 PLT 257 04/11/2022 Lab Results Component Value Date NA 140 04/26/2022 NA 139 04/11/2022 NA 139 04/10/2022 K 3.7 04/26/2022 K 3.5 04/11/2022 K 3.9 04/10/2022 CL 108 (H) 04/26/2022 CL 108 (H) 04/11/2022 CL 107 04/10/2022 CO2 27 07/13/2023 CO2 23 04/26/2022 CO2 26 04/11/2022 BUN 15 07/13/2023 BUN 14 04/26/2022 BUN 9 04/11/2022 CREATININE 0.64 07/13/2023 CREATININE 0.63 04/26/2022 CREATININE 0.61 04/11/2022 Lab Results Component Value Date TSH 1.438 04/09/2022 Hay Sinclair MD DATE of SERVICE: 07/04/2024 [1] Past Medical History: Diagnosis Date Bronchitis Crohn disease (HCC) Hypertension Incisional hernia 02/2016 Dr. [place]-- [facility] Vitamin D deficiency [2] Past Surgical History: Procedure Laterality Date APPENDECTOMY 01/29/15 COLONOSCOPY 04/11/2022 COLONOSCOPY N/A 04/11/2022 Performed by Tiffani Felix MD at [facility] ENDOSCOPY INCISIONAL HERNIA REPAIR 03/25/2016 LAP w/ mesh-- Dr. [place] -- [facility] LUNG DECORTICATION Right 01-03-2015 LUNG SURGERY 2015 fluid [3] Family History Problem Relation Name Age of Onset No Known Problems Mother Heart (more content not included)... Normal [facility] 36on 06-27-2024 36 Left detailed messag e requesting a call back re labs. Normal [facility] 36 MATTHIEU 01-04-24 NOV 5-13-25 5-21-24 BMP/creat 0.64 Normal [facility] 36 Pt requesting lisinopril 40 mg LS 03/05/23 fu 07/04/24 [place] pharmacy confirmed Normal [facility] 36on 04-26-2024 36 Patient will be give n Sandeequis $ 10.00 Co-pay card Normal [facility] 36 Pt eliquis discount care pt would like to come to the office to get another care. Pt will run out of eliquis this week end [facility] Pulmonary Visit Reporton Pulmonary Visit Report [facility] [place] [address] [place] [address] OFFICE VISIT Date of Service: 02/04/24 MR#: [id number] Acct: [id number] Name: LINSEY JENSEN Rep #: [id number] : 1965 Provider: MAURIZIO Cat Age/Sex: 58/F Location: [facility] Status: Signed Assessment and Plan Assessment and Plan (1) TATIANA (obstructive sleep apnea): Status: Chronic Comment: AutoPap with AHI 14.4 baseline Plan: Stable, she is using and benefiting from Pap therapy. No indication for titration study at this time. Contact the office for any new or worsening symptoms in the meantime. Follow-up in 1 year. (2) Obesity: Status: Chronic Qualifiers: Obesity type: due to excess calories Obesity classification: adult class 2 (BMI 35 - 39.9) Serious obesity comorbidity presence: with serious comorbidity Body mass index: BMI 37.0-37.9 Qualified Code(s): E66.812 - Obesity, class 2; E66.01 - Morbid (severe) obesity due to excess calories; Z68.37 - Body mass index [BMI] 37.0-37.9, adult Comment: BMI 37 Plan: Deteriorated. The patient has put on a few pounds. Continue to encourage weight loss. HPI HPI Comments Details: This patient presents to the office today for follow-up of her obstructive sleep apnea. She is ambulatory and currently on room air. She has not been seen in the ED or urgent care recently for any respiratory illness. She has not required any antibiotics or prednisone for any breathing problems. She does report shortness of breath on exertion only. She denies any cough, sputum production or hemoptysis. She is not having any wheezing, chest tightness, chest pain or palpitations. She also denies any fever, chills or body aches. She reports waking up feeling rested and refreshed. She is not requiring naps. She is not nodding off to sleep unintentionally. She denies morning headaches. She is not having dry mouth. Compliance report for the past 30 days shows 100% compliance with an average use of 7 hours and 19 minutes per night. Currently set up on AutoPap 5 to 15 cm of water utilizing 6.4-10.0 cm of water. Residual AHI of 1.3 events per hour. Leaks do not appear to be problematic. Intake Vital Signs 02/02/23 05:48 02/04/24 07:45 Height 5 ft 8 in 5 ft 8 in Weight: 249 lb BMI 37.8 BP 133/76 H Blood Pressure Location Rt brachial Position Sitting Respiration 20 H Pulse 76 Pulse Source Monitor Temp 97.4 F L Temperature Source Temporal Artery Pulse Oximetry (%) 98 Oxygen Delivery Method room air Intake Visit Reasons: 1 Y FU Chief Complaint: check up Adventure Education Teacher Required: No DME Vendor: [employer] Accompanied by: Self Allergies No Known Allergies Allergy (Unverified 02/04/24 14:24) Medications ???Medication ???Instructions ???Recorded ???Confirmed ???Type cholecalciferol (vitamin D3) 25 1,000 unit PO DAILY 06/22/18 02/04/24 History mcg (1,000 unit) capsule biotin 5 mg capsule 5 mg PO DAILY 07/03/20 02/04/24 History apixaban 5 mg tablet (Eliquis) 5 mg PO BID 05/26/22 02/04/24 History metoprolol tartrate 50 mg tablet 50 mg PO BID 05/26/22 02/04/24 History flecainide 50 mg tablet 50 mg PO DAILY 08/19/22 02/04/24 History lisinopril 40 mg tablet 40 mg PO QDAY 02/04/24 02/04/24 History Have you fallen in the past year?: No PFSH Medical History Primary snoring Paroxysmal atrial fibrillation Hypertension Surgical History History of intestinal surgery History of lung surgery Family History Grandmother Colon cancer Father Cancer skin Bone cancer Social History Smoking Status: Never smoker alcohol intake: never substance use type: does not use what type of physical activity do you participate in: none Review of Systems Resp Respiratory: Yes as per HPI Exam Const Constitutional: Positive conversant, cooperative, in no acute respiratory distress, healthy appearing, well developed, well nourished, good hygiene and obese Head Head: Yes normocephalic, Yes atraumatic and No cyanosis of lips/distal nose Eyes Eye: Positive clear conjunctiva; Negative nystagmus Ears Ear: Positive hearing normal and external ears normal Nose Nose: Yes external nose normal Mouth Mouth: Positive oral mucosae normal Neck Neck: Positive normal visual inspection, full ROM, trachea midline and female neck greater than 37 cm (15 in) Chest Wall Chest: Positive normal inspection of the chest and symmetric chest movement; Negative increased A/P diameter Resp lung sounds: Positive clear to auscultation, good air exchange, normal expi (more content not included)... [facility] DBT Breast - bilateral opale junior 02-03-2024 No mammographic evidence of malignancy. ASSESSMENT: Category 1 Negative RECOMMENDATION: Routine screening mammogram in 1 year. Bilateral CANCER RISK ASSESSMENT: This risk assessment is based on patient provided information collected in a risk survey taken at the time of this examination. LIFETIME BREAST CANCER RISK: Reza 8: 7.77% - If greater than or equal to 20%, consider annual mammogram and annual screening Breast MRI or follow up in high risk clinic. Is the patient at elevated risk based on the HBOC criteria? No (Hereditary Breast and Ovarian Cancer) - If Yes, consider genetic counseling and testing with high risk follow up Is the patient at elevated risk based on the Coreas Syndrome criteria? No - If Yes, consider genetic counseling and testing with high risk follow up. Report Dictated on Electronically Signed By: Adriane M Scott, DO Electronically Signed Date/Time: 02/03/2024 11:36 AM EST [facility] Patient Name: LINSEY MARTE : 1965 Exam Date/Time: 02/03/2024 10:04 Procedure: BI MAMMOGRAM SCREENING TOMOSYNTHESIS BILATERAL Ordering Provider: ISBELL THOMAS Reason For Exam: This exam was performed at [facility]. [address] to [facility] [id number] PATIENT CANCER HISTORY: No Personal History of Cancer FAMILY CANCER HISTORY: No Family History of Cancer TECHNIQUE: 2D Bilateral CC and MLO 3D Bilateral CC and MLO Images reviewed with CAD Markings on images: BB's = Nipples, skin lesions Open red devil = Palpable Line = Scar COMPARISON: 01/26/2023, 01/23/2022, 11/25/2020, 2019, 07/12/2018, 07/06/2017, 06/25/2015 TISSUE DENSITY: BIRADS A - The breasts are almost entirely fatty. FINDINGS: No suspicious masses, architectural distortions or suspiciously clustered microcalcifications. No skin thickening or nipple retraction. No significant change from prior studies. [facility] Adriane Scott DO - 02/03/2024 Patient Name: ILNSEY JENSEN : 1965 Exam Date/Time: 02/03/2024 10:04 Procedure: BI MAMMOGRAM SCREENING TOMOSYNTHESIS BILATERAL Ordering Provider: ISBELL THOMAS Reason For Exam: This exam was performed at [facility]. [address] to [facility] [id number] PATIENT CANCER HISTORY: No Personal History of Cancer FAMILY CANCER HISTORY: No Family History of Cancer TECHNIQUE: 2D Bilateral CC and MLO 3D Bilateral CC and MLO Images reviewed with CAD Markings on images: BB's = Nipples, skin lesions Open red devil = Palpable Line = Scar COMPARISON: 01/26/2023, 01/23/2022, 11/25/2020, 2019, 07/12/2018, 07/06/2017, 06/25/2015 TISSUE DENSITY: BIRADS A - The breasts are almost entirely fatty. FINDINGS: No suspicious masses, architectural distortions or suspiciously clustered microcalcifications. No skin thickening or nipple retraction. No significant change from prior studies. IMPRESSION: No mammographic evidence of malignancy. ASSESSMENT: Category 1 Negative RECOMMENDATION: Routine screening mammogram in 1 year. Bilateral CANCER RISK ASSESSMENT: This risk assessment is based on patient provided information collected in a risk survey taken at the time of this examination. LIFETIME BREAST CANCER RISK: Reza 8: 7.77% - If greater than or equal to 20%, consider annual mammogram and annual screening Breast MRI or follow up in high risk clinic. Is the patient at elevated risk based on the HBOC criteria? No (Hereditary Breast and Ovarian Cancer) - If Yes, consider genetic counseling and testing with high risk follow up Is the patient at elevated risk based on the Coreas Syndrome criteria? No - If Yes, consider genetic counseling and testing with high risk follow up. Report Dictated on Electronically Signed By: Adriane Scott DO Electronically Signed Date/Time: 02/03/2024 11:36 AM EST [facility] Radiology Study observation (narrative) [facility] DBT Breast - bilateral scree ningOrdered By: Adriane Scott on 02-03-2024 [facility] Work Phone: 36on 01-24-2024 36 MATTHIEU-01/15 OC NOV-07/16 CBC-07/15 BMP-07/15 CR-0.64 Normal [facility] 36on 01-21-2024 36 Labs and EKG acceptable for refill flecainide and lopressor Normal [facility] 36 Pt requesting eliqui s flecainide and metoprolol Last seen 01/04/24, fu 07/05/23, labs done 07/13/23 Pharmacy confirmed Normal [facility] ECG 12 leadon 01-04-2024 Sinus Rhythm WITHIN NORMAL LIMITS [facility] Office Visiton 01-04-2024 Follow-up visit [id number] Jina Jensen i 1965 F Date Provider Department Center 01/04/2024 [id number] SINCLAIRManuela [facility] JANA None Family History Problem Relation Age of Onset No Known Problems Mother Heart disease Father Skin cancer Father No Known Problems Sister No Known Problems Brother No Known Problems Brother Family Status - Relation Status Age at Mother Alive Father Alive Sister Alive Brother Alive Brother Alive Level of Service:31630 MS OFFICE/OUTPATIENT ESTABLISHED MOD MDM 30 MIN Reason for Visit and Comments: Atrial Fibrillation [80] - PAF Hypertension [946259] Sleep Apnea [348] Normal [facility] Progress Noteon 01-04-2024 Progress Note [facility] [place] [facility]Electrophys iology Follow Up Clinic Note Chief Complaint: Chief Complaint Patient presents with Atrial Fibrillation PAF Hypertension Sleep Apnea History of Present Illness: Linsey Jensen is a 58 y.o. female referred here in Jul 2022 for paroxysms of AFib. She went into A-fib for the first time in Mar 2022 during preparation for a colonoscopy. She was cardioverted unsuccessfully in the ED and then spontaneously converted later that evening. She was discharged on atenolol and Eliquis after a normal echo. She had a similar episode in April 2022 and she was started on flecainide 50 mg twice daily by Linsey Martinez. She presents today feeling well. She has not had further episodes of palpitation, dizziness, or syncope. Today she tells me that she has occasional episodes where she feels her heart racing. However, she is vague about the duration and the frequency of these. She has not captured them on her Apple Watch. She otherwise denies chest pain, shortness of breath, or decrease in exercise tolerance. She is active though she does not exercise regularly. She was diagnosed with TATIANA by sleep study in May 2022 and now wears a CPAP mask. She reports blood pressures in the 140s to 150s systolic and 80s to 90s diastolic An EKG today shows normal sinus rhythm. An echo in Mar 2022 showed an LVEF of 74% with a normal LA size. Assessment and Plan: 1. Paroxysmal atrial fibrillation: She has had at least 2 documented episodes, and she has reported prior palpitation. She has done well on flecainide and metoprolol. We will continue with the current management. 2. Hypertension: At the last visit I increased her lisinopril to 20 mg daily. Her BP seems to be running still a little high. I will increase the lisinopril to 40 mg daily. She may need a thiazide diuretic. We spoke at length about diet and exercise. 3. TATIANA: She is wearing her CPAP mask. Past Medical History: Past Medical History: Diagnosis Date Bronchitis Crohn disease (HCC) Hypertension Incisional hernia 02/2016 Dr. Velazquez-- [facility] Vitamin D deficiency Past Surgical History Past Surgical History: Procedure Laterality Date APPENDECTOMY 01/29/15 COLONOSCOPY 04/11/2022 COLONOSCOPY N/A 04/11/2022 Performed by Tiffani Felix MD at [facility] ENDOSCOPY INCISIONAL HERNIA REPAIR 03/25/2016 LAP w/ mesh-- Dr. Velazquez -- [facility] LUNG DECORTICATION Right 01-03-2015 LUNG SURGERY 2015 fluid Family History Family History Problem Relation Name Age of Onset No Known Problems Mother Heart disease Father Skin cancer Father No Known Problems Sister No Known Problems Brother No Known Problems Brother Social History Social History Tobacco Use Smoking status: Never Smokeless tobacco: Never Substance Use Topics Alcohol use: No Alcohol/week: 0.0 standard drinks of alcohol Drug use: No Medications: Reviewed Allergies: Reviewed Review of Systems: All other systems were reviewed and are negative other than as noted in the HPI. Physical Examination: Vitals: Blood pressure (!) 140/88, pulse 61, height 5' 6 (1.676 m), weight 238 lb (108 kg), SpO2 99%. Constitutional: Appears well kept and looks stated age; in NAD Psychiatric: A &O x3 Mood is pleasant; Affect is appropriate Musculoskeletal: Normocephalic; no joint swelling; gait steady; 5/5 muscle strength bilaterally in upper and lower extremities; no clubbing or cyanosis HEENT: Pupils are equal and round; Conjunctiva are not injected; Sclera are non-icteric; Airway and Nares are patent; Ears without external abnormalities. Mucosa is pink; Dentition is normal Neck: Supple; No JVD or Bruits; No thyromegaly; No lymphadenopathy Respiratory: Lungs are clear with no rales or wheezes. Respiratory effort is normal and symmetrical bilaterally; Good air movement bilaterally Heart: RRR without ectopy; Nl S1 and S2 no mcrg Abdomen: NABS soft, non-tender, non-distended; no organomegaly; no obvious masses Extremities/Skin: No LE edema; Skin warm to touch and well perfused; skin discoloration is absent; Peripheral Pulses intact Neuro: sensation and motor function are grossly normal. Cranial Nerves are grossly intact Laboratory Tests: Lab Results Component Value Date WBC 5.0 07/13/2023 WBC 7.2 04/26/2022 WBC 8.2 04/11/2022 HGB 13.0 07/13/2023 HGB 14.8 04/26/2022 HGB 13.1 04/11/2022 HCT 39.2 07/13/2023 HCT 44.9 04/26/2022 HCT 38.2 04/11/2022 MCV 94.0 07/13/2023 MCV 93.3 04/26/2022 MCV 93.0 04/11/2022 PLT 289 07/13/2023 PLT 328 04/26/2022 PLT 257 04/11/2022 Lab Results Component Value Date NA 140 04/26/2022 NA 139 04/11/2022 NA 139 04/10/2022 K 3.7 04/26/2022 K 3.5 04/11/2022 K 3.9 04/10/2022 CL 108 (H) 04/26/2022 CL 108 (H) 04/11/2022 CL 107 04/10/2022 CO2 27 07/13/2023 CO2 23 04/26/2022 CO2 26 04/11/2022 BUN 15 07/13/2023 BUN 14 04/26/2022 BUN 9 04/11/2022 CREATIN (more content not included)... Normal [facility] DBT Breast - bilateral sarah pacheco 01-26-2023 No mammographic evidence of malignancy. ASSESSMENT: Category 1 Negative RECOMMENDATION: Routine screening mammogram in 1 year. Bilateral CANCER RISK ASSESSMENT: This risk assessment is based on patient provided information collected in a risk survey taken at the time of this examination. LIFETIME BREAST CANCER RISK: Reza: 9.75% - If greater than or equal to 20%, consider annual mammogram and annual screening Breast MRI or follow up in high risk clinic. Is the patient at elevated risk based on the HBOC criteria? No (Hereditary Breast and Ovarian Cancer) - If Yes, consider genetic counseling and testing with high risk follow up. Is the patient at elevated risk based on the Coreas Syndrome criteria? No - If Yes, consider genetic counseling and testing with high risk follow up. Report Dictated on Electronically Signed By: Angela Lee MD Electronically Signed Date/Time: 01/26/2023 12:10 PM EST [facility] Patient Name: LINSEY MARTE : 1965 Exam Date/Time: 01/26/2023 10:37 Procedure: BI MAMMOGRAM SCREENING TOMOSYNTHESIS BILATERAL Ordering Provider: ISBELL THOMAS Reason For Exam: z12.31 Image views: 2D Bilateral CC and MLO views were acquired. 3D Bilateral CC and MLO views were acquired. Images were reviewed with CAD. Markings on images: BB's = Nipples; skin lesions Open red devil = Palpable Line = Scar COMPARISON: 11/25/2020, 01/23/2022 TISSUE DENSITY: BIRADS B - There are scattered fibroglandular densities. FINDINGS: No suspicious masses, architectural distortions or suspiciously clustered microcalcifications are identified. There is no evidence of skin thickening or nipple retraction. There are no significant changes when compared with prior studies. [facility] Angela Lee MD - 01/26/2023 Patient Name: LINSEY JENSEN : 1965 Exam Date/Time: 01/26/2023 10:37 Procedure: BI MAMMOGRAM SCREENING TOMOSYNTHESIS BILATERAL Ordering Provider: ISBELL THOMAS Reason For Exam: z12.31 Image views: 2D Bilateral CC and MLO views were acquired. 3D Bilateral CC and MLO views were acquired. Images were reviewed with CAD. Markings on images: BB's = Nipples; skin lesions Open red devil = Palpable Line = Scar COMPARISON: 11/25/2020, 01/23/2022 TISSUE DENSITY: BIRADS B - There are scattered fibroglandular densities. FINDINGS: No suspicious masses, architectural distortions or suspiciously clustered microcalcifications are identified. There is no evidence of skin thickening or nipple retraction. There are no significant changes when compared with prior studies. IMPRESSION: No mammographic evidence of malignancy. ASSESSMENT: Category 1 Negative RECOMMENDATION: Routine screening mammogram in 1 year. Bilateral CANCER RISK ASSESSMENT: This risk assessment is based on patient provided information collected in a risk survey taken at the time of this examination. LIFETIME BREAST CANCER RISK: Reza: 9.75% - If greater than or equal to 20%, consider annual mammogram and annual screening Breast MRI or follow up in high risk clinic. Is the patient at elevated risk based on the HBOC criteria? No (Hereditary Breast and Ovarian Cancer) - If Yes, consider genetic counseling and testing with high risk follow up. Is the patient at elevated risk based on the Coreas Syndrome criteria? No - If Yes, consider genetic counseling and testing with high risk follow up. Report Dictated on Electronically Signed By: Angela Lee MD Electronically Signed Date/Time: 01/26/2023 12:10 PM EST [facility] Radiology Study observation (narrative) [facility] DBT Breast - bilateral scree ningOrdered By: Angela Lee on 01-26-2023 [facility] Work Phone: ECG 12 lead - CLINIC PERFORM EDon 01-12-2023 Sinus Rhythm WITHIN NORMAL LIMITS [facility] ECG 12 lead - CLINIC PERFORM EDon 08-05-2022 Sinus Rhythm WITHIN NORMAL LIMITS [facility] No Panel Informationon 05-05 Sinus Rhythm WITHIN NORMAL LIMITS [facility] No Panel InformationOrdered By: Hay Sinclair on 05-05-2022 [facility] Work Phone: Basic metabolic 1998 panelon 04-26-2022 Anion gap [Moles/Vol] 9 mmol/L 3 - 13 mmol/L [facility] Calcium [Mass/Vol] 9.1 mg/dL 8.4 - 10. 4 mg/dL [facility] Chloride [Moles/Vol] 108 mmol/L High 98 - 10 7 mmol/L [facility] CO2 [Moles/Vol] 23 mmol/L 22 - 30 mmol/L [facility] Creatinine [Mass/Vol] 0.63 mg/dL 0.52 - 1.04 mg/dL [facility] GFR/1.73 sq M.predicted MDRD (S/P/Bld) [Vol rate/Area] - PINF [facility] Comment on above: Calculation based on the Chronic Kidney Disease Epidemiology Collaboration (CKD-EPI) equation refit without adjustment for race Glucose [Mass/Vol] 126 mg/dL High 70 - 100 mg/dL [facility] Interpretation and review of laboratory results Abnormal [facility] Potassium [Moles/Vol] 3.7 mmol/L 3.5 - 5.1 mmol/L [facility] Sodium [Moles/Vol] 140 mmol/L 135 - 145 mmol/L [facility] Urea nitrogen [Mass/Vol] 14 mg/dL 7 - 17 mg/dL [facility] CBC W Auto Differential pane l (Bld)on 04-26-2022 Basophils (Bld) [#/Vol] 0.0 10*3/uL 0.0 - 0.2 10*3/uL [facility] Basophils/100 WBC (Bld) 0.4 % 0.0 - 2.0 % [facility] Eosinophils (Bld) [#/Vol] 0.1 10*3/uL 0.0 - 0.5 10*3/uL [facility] Eosinophils/100 WBC (Bld) 1.1 % 1.0 - 6.0 % [facility] Erythrocyte distribution width (RBC) [Ratio] 13.7 % 11.5 - 14.5 % [facility] Hematocrit (Bld) [Volume fraction] 44.9 % 35.0 - 47.0 % [facility] Hemoglobin (Bld) [Mass/Vol] 14.8 g/dL 11.7 - 16.0 g/dL [facility] Interpretation and review of laboratory results Normal [facility] Lymphocytes (Bld) [#/Vol] 2.3 10*3/uL 1.0 - 4.3 10*3/uL [facility] Lymphocytes/100 WBC (Bld) 32.6 % 20.0 - 40.0 % [facility] MCH (RBC) [Entitic mass] 30.7 pg 26.0 - 34.0 pg [facility] MCHC (RBC) [Mass/Vol] 32.9 % 32.0 - 36.0 % [facility] MCV (RBC) [Entitic vol] 93.3 fL 80.0 - 98.0 fL [facility] Monocytes (Bld) [#/Vol] 0.7 10*3/uL 0.0 - 0.8 10*3/uL [facility] Monocytes/100 WBC (Bld) 9.1 % 2.0 - 10.0 % [facility] Neutrophils (Bld) [#/Vol] 4.1 10*3/uL 1.8 - 7.0 10*3/uL [facility] Neutrophils/100 WBC (Bld) 56.8 % 40.0 - 80.0 % [facility] Nucleated RBC/100 WBC (Bld) [Ratio] 0.0 % [facility] Platelet mean volume (Bld) [Entitic vol] 7.6 fL 7.4 - 12.4 fL [facility] Platelets (Bld) [#/Vol] 328 10*3/uL 140 - 440 10*3/uL [facility] RBC (Bld) [#/Vol] 4.81 10*6/uL 3.8 - 5.20 10*6/uL [facility] WBC (Bld) [#/Vol] 7.2 10*3/uL 3.6 - 10.7 10*3/uL [facility] Laboratory - Chemistry and C hemistry - challengeon 04-26-2022 Troponin I.cardiac [Mass/Vol] ng/mL 0.000 - 0.034 ng/mL [facility] Natriuretic peptide B [Mass/ Vol]on 04-26-2022 Interpretation and review of laboratory results Abnormal [facility] Natriuretic peptide B (Bld) [Mass/Vol] 189 pg/mL High 0 - 125 pg/mL [facility] No Panel Informationon 04-26 [facility] Troponin I.cardiac [Mass/Vol ]on 04-26-2022 Interpretation and review of laboratory results Normal [facility] Patients with high levels of Biotin oral intake (ie >5 mg/day) may have falsely decreased Troponin levels. [facility] XR Chest Single viewon 04-26 No acute cardiopulmonary abnormality identified. Cardiomegaly. Report Dictated on Electronically Signed By: Carlos Mcmullen Electronically Signed Date/Time: 04/26/2022 10:32 AM [facility] [employer] Patient Name: LINSEY MARTE : 1965 Exam Date/Time: 04/26/2022 10:30 Procedure: XR CHEST 1 VIEW Ordering Provider: ZAMBRANO BETHANY Reason For Exam: shortness of breath EXAMINATION: XR chest AP. EXAM DATE & TIME: 04/26/2022 10:30 AM EST INDICATION: shortness of breath ADDITIONAL INFORMATION: 56-year-old female with shortness of breath presents for evaluation COMPARISON: Chest radiographs dated 01/29/2015, 01/07/2015 and 01/06/2015 TECHNIQUE: Frontal view of the chest was obtained. FINDINGS: Lines/support devices: None. Cardiomediastinal silhouette: The heart is enlarged. Lungs/pleura: No focal consolidation, pleural effusion or pneumothorax. Osseous structures: Degenerative changes of the spine and shoulders are seen. No acute osseous abnormality is demonstrated. Other findings: None. [facility] Carlos Mcmullen MD - 04/26/2022 [facility] Name[facility] 1965 [id number] Exam Date/Time: 04/26/2022 10:30 Procedure: XR CHEST 1 VIEW Ordering Provider: ZAMBRANO BETHANY Reason For Exam: shortness of breath EXAMINATION: XR chest AP. EXAM DATE & TIME: 04/26/2022 10:30 AM EST INDICATION: shortness of breath ADDITIONAL INFORMATION: 56-year-old female with shortness of breath presents for evaluation COMPARISON: Chest radiographs dated 01/29/2015, 01/07/2015 and 01/06/2015 TECHNIQUE: Frontal view of the chest was obtained. FINDINGS: Lines/support devices: None. Cardiomediastinal silhouette: The heart is enlarged. Lungs/pleura: No focal consolidation, pleural effusion or pneumothorax. Osseous structures: Degenerative changes of the spine and shoulders are seen. No acute osseous abnormality is demonstrated. Other findings: None. IMPRESSION: No acute cardiopulmonary abnormality identified. Cardiomegaly. Report Dictated on Electronically Signed By: Carlos Mcmullen Electronically Signed Date/Time: 04/26/2022 10:32 AM EST [facility] Radiology Study observation (narrative) [facility] XR Chest Single viewOrdered By: Carlos Mcmullen on 04-26-2022 [facility] Work Phone: Basic metabolic 1998 panelon 04-11-2022 Anion gap [Moles/Vol] 6 mmol/L 3 - 13 mmol/L [facility] Calcium [Mass/Vol] 8.7 mg/dL 8.4 - 10. 4 mg/dL [facility] Chloride [Moles/Vol] 108 mmol/L High 98 - 10 7 mmol/L [facility] CO2 [Moles/Vol] 26 mmol/L 22 - 30 mmol/L [facility] Creatinine [Mass/Vol] 0.61 mg/dL 0.52 - 1.04 mg/dL [facility] GFR/1.73 sq M.predicted MDRD (S/P/Bld) [Vol rate/Area] - PINF [facility] Comment on above: Calculation based on the Chronic Kidney Disease Epidemiology Collaboration (CKD-EPI) equation refit without adjustment for race Glucose [Mass/Vol] 97 mg/dL 70 - 100 mg/dL [facility] Interpretation and review of laboratory results Abnormal [facility] Potassium [Moles/Vol] 3.5 mmol/L 3.5 - 5.1 mmol/L [facility] Sodium [Moles/Vol] 139 mmol/L 135 - 145 mmol/L [facility] Urea nitrogen [Mass/Vol] 9 mg/dL 7 - 17 mg/dL [facility] CBC W Auto Differential pane l (Bld)Ordered By: Elaina Bales on 04-11-2022 Basophils (Bld) [#/Vol] 0.1 10*3/uL 0.0 - 0.2 10*3/uL [facility] Basophils/100 WBC (Bld) 0.7 % 0.0 - 2.0 % [facility] Eosinophils (Bld) [#/Vol] 0.1 10*3/uL 0.0 - 0.5 10*3/uL [facility] Eosinophils/100 WBC (Bld) 0.9 % Low 1.0 - 6.0 % [facility] Erythrocyte distribution width (RBC) [Ratio] 13.5 % 11.5 - 14.5 % [facility] Hematocrit (Bld) [Volume fraction] 38.2 % 35.0 - 47.0 % [facility] Hemoglobin (Bld) [Mass/Vol] 13.1 g/dL 11.7 - 16.0 g/dL [facility] Interpretation and review of laboratory results Abnormal [facility] Lymphocytes (Bld) [#/Vol] 3.3 10*3/uL 1.0 - 4.3 10*3/uL [facility] Lymphocytes/100 WBC (Bld) 40.5 % High 20.0 - 40.0 % [facility] MCH (RBC) [Entitic mass] 31.9 pg 26.0 - 34.0 pg [facility] MCHC (RBC) [Mass/Vol] 34.2 % 32.0 - 36.0 % [facility] MCV (RBC) [Entitic vol] 93.0 fL 80.0 - 98.0 fL [facility] Monocytes (Bld) [#/Vol] 0.6 10*3/uL 0.0 - 0.8 10*3/uL [facility] Monocytes/100 WBC (Bld) 7.5 % 2.0 - 10.0 % [facility] Neutrophils (Bld) [#/Vol] 4.1 10*3/uL 1.8 - 7.0 10*3/uL [facility] Neutrophils/100 WBC (Bld) 50.4 % 40.0 - 80.0 % [facility] Nucleated RBC/100 WBC (Bld) [Ratio] 0.0 % [facility] Platelet mean volume (Bld) [Entitic vol] 8.2 fL 7.4 - 12.4 fL [facility] Platelets (Bld) [#/Vol] 257 10*3/uL 140 - 440 10*3/uL [facility] RBC (Bld) [#/Vol] 4.10 10*6/uL 3.8 - 5.20 10*6/uL [facility] WBC (Bld) [#/Vol] 8.2 10*3/uL 3.6 - 10.7 10*3/uL [facility] Laboratory - Chemistry and C hemistry - challengeon 04-11-2022 Magnesium [Mass/Vol] 1.9 mg/dL 1.6 - 2 .3 mg/dL [facility] Magnesium [Mass/Vol]on 04-11 Interpretation and review of laboratory results Normal [facility] US Heart TransthoracicOrdere d By: Gely Albright on 04-11-2022 Ao Root Index 1.35 cm/m2 [facility] Work Phone: Aortic Root 2.8 cm [facility] Work Phone: Ascending Aorta 3.3 cm [facility] Work Phone: Ascending Aorta Index 1.59 cm/m2 [facility] Work Phone: EF BP 74 % 55 - 100 % [facility] Work Phone: Fractional Shortening 2D 36 % 28 - 44 % [facility] Work Phone: Interpretation and review of laboratory results Abnormal [facility] Work Phone: IVSd 1.4 cm Abnormal 0.6 - 0.9 cm [facility] Work Phone: LA Volume 2C 58 mL Abnormal 22 - 52 mL [facility] Work Phone: LA Volume 4C 58 mL Abnormal 22 - 52 mL [facility] Work Phone: LA Volume A/L 64 mL [facility] Work Phone: LA Volume BP 60 mL Abnormal 22 - 52 mL [facility] Work Phone: LA Volume Index 2C 28 mL/m2 16 - 34 mL/m2 [facility] Work Phone: LA Volume Index 4C 28 mL/m2 16 - 34 mL/m2 [facility] Work Phone: LA Volume Index A/L 31 mL/m2 16 - 34 mL/m2 [facility] Work Phone: LA Volume Index BP 29 ml/m2 16 - 34 ml/m2 [facility] Work Phone: LV E' Lateral Velocity 10 cm/s [facility] Work Phone: LV E' Septal Velocity 8 cm/s [facility] Work Phone: LV EDV A2C 106 mL [facility] Work Phone: LV EDV A4C 114 mL [facility] Work Phone: LV EDV BP 111 mL Abnormal 56 - 104 mL [facility] Work Phone: LV EDV Index A2C 51 mL/m2 [facility] Work Phone: LV EDV Index A4C 55 mL/m2 [facility] Work Phone: LV EDV Index BP 53 mL/m[facility] Work Phone: LV Ejection Fraction A2C 72 % [facility] Work Phone: LV Ejection Fraction A4C 75 % [facility] Work Phone: LV ESV A2C 30 mL [facility] Work Phone: LV ESV A4C 28 mL [facility] Work Phone: LV ESV BP 29 mL 19 - 49 mL [facility] Work Phone: LV ESV Index A2C 14 mL/m2 [facility] Work Phone: LV ESV Index A4C 13 mL/m2 [facility] Work Phone: LV ESV Index BP 14 mL/m2 [facility] Work Phone: LV Mass 2D 133.0 g 67 - 162 g [facility] Work Phone: LV Mass 2D Index 64.0 g/m2 43 - 95 g/m2 [facility] Work Phone: LV RWT Ratio 0.67 [facility] Work Phone: LVIDd 3.3 cm Abnormal 3.9 - 5.3 cm [facility] Work Phone: LVIDd Index 1.59 cm/m2 [facility] Work Phone: LVIDs 2.1 cm [facility] Work Phone: LVIDs Index 1.01 cm/m2 [facility] Work Phone: LVOT Area 3.8 cm2 [facility] Work Phone: LVOT Diameter 2.2 cm [facility] Work Phone: LVPWd 1.1 cm Abnormal 0.6 - 0.9 cm [facility] Work Phone: RA Area 4C 20.6 mL [facility] Work Phone: RA Area 4C 19.6 mL [facility] [place] Work Phone: RV Free Wall Peak S' 18 cm/s [facility] Work Phone: TAPSE 2.4 cm 1.7 cm [facility] [place] Work Phone: [facility] Work Phone: US Heart Transthoracicon Left Ventricle: Left ventricle size is normal. Normal wall thickness. Normal left ventricular systolic function. EF by 2D [place]psons Biplane is 74%. Normal wall motion. Right Ventricle: Right ventricle size is normal. Normal systolic function. IVC/SVC: IVC was not well visualized. IVC diameter is normal and decreases less than 50% during inspiration; therefore the estimated right atrial pressure is intermediate (~8 mmHg). No significant valvular abnormalities. Left Ventricle Left ventricle size is normal. Normal wall thickness. Normal left ventricular systolic function. EF by 2D [place] Biplane is 74%. Normal wall motion. Right Ventricle Right ventricle size is normal. Normal systolic function. Left Atrium Left atrium size is normal. Right Atrium Right atrium size is normal. IVC/SVC IVC was not well visualized. IVC diameter is normal and decreases less than 50% during inspiration; therefore the estimated right atrial pressure is intermediate (~8 mmHg). Mitral Valve Valve structure is normal. Trace regurgitation. No stenosis noted. Tricuspid Valve Valve structure is normal. Trace regurgitation. Aortic Valve Trileaflet. No cusp thickening. No cusp calcification. Mild annular calcification. No regurgitation. No stenosis. Pulmonic Valve Valve structure is normal. Trace regurgitation. Ascending Aorta Normal sized sinuses of Valsalva and ascending aorta. Pericardium No pericardial effusion. Septum No interatrial shunt visualized on color Doppler. Study Details Image quality: adequate. Blood pressure: 150/80 mmHg. The underlying ECG rhythm was sinus rhythm. No contrast was given. Echo Additional Conclusions No significant valvular abnormalities. CV CPACS aPTT Coag (Bld) [Time]on aPTT Coag (PPP) [Time] 47.3 s High 20.0 - 30.5 s [facility] Interpretation and review of laboratory results Abnormal [facility] NOTE: The therapeuti c time for Heparin anticoagulation, based on Xa activity inhibition, is an APTT of 46-80 seconds. [facility] Basic metabolic 1998 panelon 04-10-2022 Anion gap [Moles/Vol] 7 mmol/L 3 - 13 mmol/L [facility] Calcium [Mass/Vol] 8.6 mg/dL 8.4 - 10. 4 mg/dL [facility] Chloride [Moles/Vol] 107 mmol/L 98 - 10 7 mmol/L [facility] CO2 [Moles/Vol] 24 mmol/L 22 - 30 mmol/L [facility] Creatinine [Mass/Vol] 0.61 mg/dL 0.52 - 1.04 mg/dL [facility] GFR/1.73 sq M.predicted MDRD (S/P/Bld) [Vol rate/Area] - PINF [facility] Comment on above: Calculation based on the Chronic Kidney Disease Epidemiology Collaboration (CKD-EPI) equation refit without adjustment for race Glucose [Mass/Vol] 108 mg/dL High 70 - 100 mg/dL [facility] Interpretation and review of laboratory results Abnormal [facility] Potassium [Moles/Vol] 3.9 mmol/L 3.5 - 5.1 mmol/L [facility] Sodium [Moles/Vol] 139 mmol/L 135 - 145 mmol/L [facility] Urea nitrogen [Mass/Vol] 11 mg/dL 7 - 17 mg/dL [facility] CBC W Auto Differential pane l (Bld)Ordered By: Jamshid Guy on 04-10-2022 Basophils (Bld) [#/Vol] 0.1 10*3/uL 0.0 - 0.2 10*3/uL [facility] Basophils/100 WBC (Bld) 0.9 % 0.0 - 2.0 % [facility] Eosinophils (Bld) [#/Vol] 0.0 10*3/uL 0.0 - 0.5 10*3/uL [facility] Eosinophils/100 WBC (Bld) 0.4 % Low 1.0 - 6.0 % [facility] Erythrocyte distribution width (RBC) [Ratio] 13.6 % 11.5 - 14.5 % [facility] Hematocrit (Bld) [Volume fraction] 40.2 % 35.0 - 47.0 % [facility] Hemoglobin (Bld) [Mass/Vol] 13.6 g/dL 11.7 - 16.0 g/dL [facility] Interpretation and review of laboratory results Abnormal [facility] Lymphocytes (Bld) [#/Vol] 3.4 10*3/uL 1.0 - 4.3 10*3/uL [facility] Lymphocytes/100 WBC (Bld) 34.1 % 20.0 - 40.0 % [facility] MCH (RBC) [Entitic mass] 31.6 pg 26.0 - 34.0 pg [facility] MCHC (RBC) [Mass/Vol] 33.8 % 32.0 - 36.0 % [facility] MCV (RBC) [Entitic vol] 93.3 fL 80.0 - 98.0 fL [facility] Monocytes (Bld) [#/Vol] 0.7 10*3/uL 0.0 - 0.8 10*3/uL [facility] Monocytes/100 WBC (Bld) 7.0 % 2.0 - 10.0 % [facility] Neutrophils (Bld) [#/Vol] 5.8 10*3/uL 1.8 - 7.0 10*3/uL [facility] Neutrophils/100 WBC (Bld) 57.6 % 40.0 - 80.0 % [facility] Nucleated RBC/100 WBC (Bld) [Ratio] 0.1 % [facility] Platelet mean volume (Bld) [Entitic vol] 7.8 fL 7.4 - 12.4 fL [facility] Platelets (Bld) [#/Vol] 292 10*3/uL 140 - 440 10*3/uL [facility] RBC (Bld) [#/Vol] 4.31 10*6/uL 3.8 - 5.20 10*6/uL [facility] WBC (Bld) [#/Vol] 10.0 10*3/uL 3.6 - 10.7 10*3/uL [facility] [place] [facility] No Panel InformationOrdered By: Sean Farah on 04-10-2022 P [place] degrees [facility] Work Phone: [phone] MS Interval ms [facility] Work Phone: QRS [place] 28 degrees [facility] Work Phone: [phone] QRSD Interval 88 ms [facility] Work Phone: [phone] QT Interval 321 ms [facility] Work Phone: [phone] QTC Interval 456 ms [facility] Work Phone: [phone] T Wave [place] 19 degrees [facility] Work Phone: [phone] [facility] Work Phone: [phone] No Panel Informationon 04-10 Atrial fibrillation Compared to ECG 04-09-22 Grops[place] unchanged Electronically Signed On 04-10-2022 7:00:22 EST by Sean Christensen G, D O - 04/10/2022 IMPRESSION: Atrial fibrillation Compared to ECG 04-09-22 [place] unchanged Electronically Signed On 04-10-2022 7:00:22 EST by Sean Farah [facility] P [place] 30 degrees [facility] MS Interval 172 ms [facility] QRS [place] 8 degrees [facility] QRSD Interval 92 ms [facility] QT Interval 428 ms [facility] QTC Interval 443 ms [facility] T Wave [place] 16 degrees [facility] Sinus rhythm Compared to ECG 04-09-22 Grossly unchanged Electronically Signed On 04-10-2022 6:43:21 EST by eSan Farah CV BAILEY Farah, Sean G, D O - 04/10/2022 IMPRESSION: Sinus rhythm Compared to ECG 04-09-22 Grossly unchanged Electronically Signed On 04-10-2022 6:43:21 EST by Sean Farah [facility] P [place] 40 degrees [facility] MS Interval 167 ms [facility] QRS [place] 15 degrees [facility] QRSD Interval 100 ms [facility] QT Interval 404 ms [facility] QTC Interval 440 ms [facility] T Wave [place] 33 degrees [facility] Sinus rhythm Electronically Signed On 04-10-2022 4:38:01 EST by Johana Yepez, - 04/10/2022 IMPRESSION: Sinus rhythm Electronically Signed On 04-10-2022 4:38:01 EST by Johana Rosas [facility] Atrial fibrillation with RVR Repolarization abnormality, prob rate related Electronically Signed On 04-10-2022 4:32:30 EST by Johana Yepez, DO - 04/10/2022 IMPRESSION: Atrial fibrillation with RVR Repolarization abnormality, prob rate related Electronically Signed On 04-10-2022 4:32:30 EST by Johana Rosas [facility] No Panel InformationOrdered By: Johana Rosas on 04-10-2022 P [place] degrees [employer] Work Phone: MS Interval ms [employer] Work Phone: QRS [place] 49 degrees [employer] Work Phone: QRSD Interval 86 ms [facility] Work Phone: QT Interval 292 ms [employer] Phone: QTC Interval 470 ms [employer] Work Phone: T Wave [place] 233 degrees [employer] Phone: [employer] Work Phone: Vital signsOrdered By: Gissell Farah on 04-10-2022 Heart rate 121 /min bpm [employer] Work Phone: Vital signson 04-10-2022 Heart rate 64 /min bpm [facility] Heart rate 71 /min bpm [facility] Vital signsOrdered By: Kody Rosas on 04-10-2022 Heart rate 155 /min bpm [employer] Work Phone: aPTT Coag (Bld) [Time]on aPTT Coag (PPP) [Time] 43.6 s High 20.0 - 30.5 s [facility] Interpretation and review of laboratory results Abnormal [facility] NOTE: The therapeuti c time for Heparin anticoagulation, based on Xa activity inhibition, is an APTT of 46-80 seconds. [facility] aPTT Coag (PPP) [Time] 37.9 s High 20.0 - 30.5 s [facility] Interpretation and review of laboratory results Abnormal [facility] NOTE: The therapeuti c time for Heparin anticoagulation, based on Xa activity inhibition, is an APTT of 46-80 seconds. [facility] aPTT Coag (PPP) [Time] 32.3 s High 20.0 - 30.5 s [facility] Interpretation and review of laboratory results Abnormal [facility] NOTE: The therapeuti c time for Heparin anticoagulation, based on Xa activity inhibition, is an APTT of 46-80 seconds. [facility] CBC panel Auto (Bld)on 04-09 Erythrocyte distribution width (RBC) [Ratio] 13.5 % 11.5 - 14.5 % [facility] Hematocrit (Bld) [Volume fraction] 42.8 % 35.0 - 47.0 % [facility] Hemoglobin (Bld) [Mass/Vol] 14.3 g/dL 11.7 - 16.0 g/dL [facility] Interpretation and review of laboratory results Normal [facility] MCH (RBC) [Entitic mass] 30.7 pg 26.0 - 34.0 pg [facility] MCHC (RBC) [Mass/Vol] 33.3 % 32.0 - 36.0 % [facility] MCV (RBC) [Entitic vol] 92.1 fL 80.0 - 98.0 fL [facility] Platelet mean volume (Bld) [Entitic vol] 8.1 fL 7.4 - 12.4 fL [facility] Platelets (Bld) [#/Vol] 336 10*3/uL 140 - 440 10*3/uL [facility] RBC (Bld) [#/Vol] 4.64 10*6/uL 3.8 - 5.20 10*6/uL [facility] WBC (Bld) [#/Vol] 8.7 10*3/uL 3.6 - 10.7 10*3/uL [facility] Comprehensive metabolic 1998 panelon 04-09-2022 Albumin [Mass/Vol] 4.2 g/dL 3.5 - 5.0 g/dL [facility] ALP [Catalytic activity/Vol] 95 U/L 38 - 126 U/L [facility] ALT [Catalytic activity/Vol] 18 U/L 0 - 34 U/L [facility] Anion gap [Moles/Vol] 8 mmol/L 3 - 13 mmol/L [facility] AST [Catalytic activity/Vol] 26 U/L 15 - 46 U/L [facility] Bilirubin [Mass/Vol] 1.4 mg/dL High 0.2 - 1 .3 mg/dL [facility] Calcium [Mass/Vol] 8.8 mg/dL 8.4 - 10. 4 mg/dL [facility] Chloride [Moles/Vol] 109 mmol/L High 98 - 10 7 mmol/L [facility] CO2 [Moles/Vol] 23 mmol/L 22 - 30 mmol/L [facility] Creatinine [Mass/Vol] 0.56 mg/dL 0.52 - 1.04 mg/dL [facility] GFR/1.73 sq M.predicted MDRD (S/P/Bld) [Vol rate/Area] - PINF [facility] Comment on above: Calculation based on the Chronic Kidney Disease Epidemiology Collaboration (CKD-EPI) equation refit without adjustment for race Glucose [Mass/Vol] 119 mg/dL High 70 - 100 mg/dL [facility] Interpretation and review of laboratory results Abnormal [facility] Potassium [Moles/Vol] 3.6 mmol/L 3.5 - 5.1 mmol/L [facility] Protein [Mass/Vol] 7.0 g/dL 6.3 - 8.2 g/dL [facility] Sodium [Moles/Vol] 139 mmol/L 135 - 145 mmol/L [facility] Urea nitrogen [Mass/Vol] 12 mg/dL 7 - 17 mg/dL [facility] Laboratory - Chemistry and C hemistry - challengeon 04-09-2022 TSH Qn 1.438 m[IU]/L [facility] h Magnesium [Mass/Vol] 2.0 mg/dL 1.6 - 2 .3 mg/dL [facility] Magnesium [Mass/Vol]on 04-09 Interpretation and review of laboratory results Normal [facility] Natriuretic peptide B [Mass/ Vol]on 04-09-2022 Interpretation and review of laboratory results Normal [facility] Natriuretic peptide B (Bld) [Mass/Vol] 29 pg/mL 0 - 125 pg/mL [facility] No Panel Informationon 04-09 [facility] P [place] degrees [facility] MS Interval ms [facility] QRS [place] 13 degrees [facility] QRSD Interval 88 ms [facility] QT Interval 334 ms [facility] QTC Interval 482 ms [facility] T Wave [place] 29 degrees [facility] Atrial fibrillation w RVR rate [address] depression, lateral leads, likely rate related Borderline QT prolongation QRS normal Electronically Signed On 04-09-2022 17:24:37 EST by Scott Swann DO - 04/09/2022 IMPRESSION: Atrial fibrillation w RVR rate [address] depression, lateral leads, likely rate related Borderline QT prolongation QRS normal Electronically Signed On 04-09-2022 17:24:37 EST by Scott Friend [facility] Miller Weems DO 04/09/2022 4:57 PM Moderate Sedation Performed by: Miller Weems DO Authorized by: Scott Friend DO Consent: Consent obtained: Verbal Consent given by: Patient Risks, benefits, and alternatives were discussed: yes Risks discussed: Inadequate sedation, nausea and respiratory compromise necessitating ventilatory assistance and intubation Alternatives discussed: Analgesia without sedation [address] protocol: Patient identity confirmed: Verbally with patient, arm band and hospital-assigned identification number Indications: Procedure performed: Cardioversion Procedure necessitating sedation performed by: Physician performing sedation Intended level of sedation: Moderate Pre-sedation assessment: Time since last food or drink: NPO for 24 hours ASA classification: class 1 - normal, healthy patient Neck mobility: normal Pre-sedation assessments completed and reviewed: airway patency and hydration status Pre-sedation assessment completed: 04/09/2022 4:25 PM Immediate pre-procedure details: Reassessment: Patient reassessed immediately prior to procedure Reviewed: vital signs Verified: bag valve mask available, emergency equipment available, intubation equipment available, oxygen available and suction available Procedure details (see MAR for exact dosages): Sedation start time: 04/09/2022 4:36 PM Preoxygenation: Nasal cannula Sedation: Etomidate Analgesia: Fentanyl Intra-procedure monitoring: Continuous capnometry, continuous pulse oximetry and blood pressure monitoring Intra-procedure events: none Post-procedure details: Post-sedation assessment completed: 04/09/2022 4:57 PM Procedure completion: Tolerated [facility] Miller Weems DO 04/09/2022 4:53 PM Electrical Cardioversion Performed by: Miller Weems DO Authorized by: Scott Friend DO Consent: Consent obtained: Written Consent given by: Patient Risks, benefits, and alternatives were discussed: yes Risks discussed: Induced arrhythmia, pain and Alternatives discussed: No treatment, rate-control medication and delayed treatment [address] protocol: Procedure explained and questions answered to patient or proxy's satisfaction: yes Relevant documents present and verified: yes Test results available: yes Immediately prior to procedure, a time out was called: yes Patient identity confirmed: Verbally with patient, arm band and hospital-assigned identification number Pre-procedure details: Cardioversion basis: Elective Rhythm: Atrial fibrillation Electrode placement: Anterior-posterior Attempt one: Cardioversion mode: Synchronous Waveform: Biphasic Shock (Joules): 200 Shock outcome: No change in rhythm Attempt two: Cardioversion mode: Synchronous Waveform: Biphasic Shock (Joules): 200 Shock outcome: No change in rhythm Attempt three: Cardioversion mode: Synchronous Waveform: Biphasic Shock (Joules): 200 Shock outcome: No change in rhythm Post-procedure details: Patient status: Awake Procedure completion: Tolerated [facility] TSH Qnon 04-09-2022 Interpretation and review of laboratory results Normal [facility] Vital signson 04-09-2022 Heart rate 125 /min bpm [facility] aPTT Coag (Bld) [Time]on aPTT Coag (PPP) [Time] 23.9 s 20.0 - 30.5 s [facility] Interpretation and review of laboratory results Normal [facility] NOTE: The therapeuti c time for Heparin anticoagulation, based on Xa activity inhibition, is an APTT of 46-80 seconds. [facility] DBT Breast - bilateral scree junior 01-26-2022 No mammographic evidence of malignancy. Markings on images: BB's = Nipples; skin lesions Open red devil = Palpable Line = Scar ASSESSMENT: Category 1 Negative RECOMMENDATION: Routine screening mammogram in 1 year. Bilateral Report Dictated on Electronically Signed By: Chandler Avalos Electronically Signed Date/Time: 01/26/2022 9:16 AM [facility] [employer] Patient Name: LINSEY MARTE Exam Date/Time: 01/23/2022 14:21 Procedure: BI MAMMOGRAM SCREENING TOMOSYNTHESIS BILATERAL Ordering Provider: ISBELL THOMAS Reason For Exam: Image views: 2D Bilateral CC and MLO views were acquired. 3D Bilateral CC and MLO views were acquired. Prior study Comparisons: 11/25/2020 and 10/12/2019 Tissue Density: BIRADS B - There are scattered fibroglandular densities. Images were reviewed with CAD. Findings: No suspicious masses, architectural distortions or suspiciously clustered microcalcifications are identified. There is no evidence of skin thickening or nipple retraction. There are no significant changes when compared with prior studies. [facility] Chandler Avalos MD - 01/26/2022 Patient Name: LINSEY JENSEN Exam Date/Time: 01/23/2022 14:21 Procedure: BI MAMMOGRAM SCREENING TOMOSYNTHESIS BILATERAL Ordering Provider: ISBELL THOMAS Reason For Exam: Image views: 2D Bilateral CC and MLO views were acquired. 3D Bilateral CC and MLO views were acquired. Prior study Comparisons: 11/25/2020 and 10/12/2019 Tissue Density: BIRADS B - There are scattered fibroglandular densities. Images were reviewed with CAD. Findings: No suspicious masses, architectural distortions or suspiciously clustered microcalcifications are identified. There is no evidence of skin thickening or nipple retraction. There are no significant changes when compared with prior studies. IMPRESSION: No mammographic evidence of malignancy. Markings on images: BB's = Nipples; skin lesions Open red devil = Palpable Line = Scar ASSESSMENT: Category 1 Negative RECOMMENDATION: Routine screening mammogram in 1 year. Bilateral Report Dictated on Electronically Signed By: Chandler Avalos Electronically Signed Date/Time: 01/26/2022 9:16 AM [facility] DBT Breast - bilateral scree ningOrdered By: Chandler Avalos on 01-26-2022 [employer] Phone: DBT Breast - bilateral opale junior 01-23-2022 Radiology Study observation (narrative) Meryl Morrison alth Absolute lymphocyte counton 06-26-2021 Lymphocytes Auto (Unsp spec) [#/Vol] 1.65 10*3/uL 0.83-4.51 [facility] Work Phone: [phone] Basophil percentageon 2021 Basophils/100 WBC (Bld) 0.8 % 0-1 [facility] Work Phone: [phone] Bilirubin [Mass/Vol] 1.00 mg/dL 0.20-1.00 [facility] Work Phone: [phone] Comment on above: For patients on eltr ombopag therapy, use of Dimension Blanket TBIL is not recommended. Chloride [Moles/Vol] 108 mmol/L 98-107 [facility] Work Phone: [phone] Eosinophils/100 WBC (Bld) 1.6 % 0-5 [facility] Work Phone: Glucose [Mass/Vol] 105 mg/dL 74-106 [facility] Work Phone: [phone] Comment on above: Fasting Glucose resu lt from 100 to 125 mg/dL suggests IMPAIRED HOMEOSTASIS per A.D.A. criteria. Neutrophils (Bld) [#/Vol] 2.7 10*3/uL 2.0-7.7 [facility] Work Phone: [phone] Neutrophils/100 WBC (Bld) 55.2 % 47-70 [facility] Work Phone: [phone] Potassium [Moles/Vol] 4.3 mmol/L 3.5-5.1 [facility] Work Phone: [phone] Protein [Mass/Vol] 7.6 g/dL 6.4-8.2 [facility] Work Phone: [phone] Sodium [Moles/Vol] 139 mmol/L 136-145 [facility] Work Phone: [phone] WBC (Bld) [#/Vol] 4.9 10*3/uL 4.4-11.0 [facility]: Blood erythrocytes count (nu mber/volume)on 06-26-2021 RBC (Bld) [#/Vol] 4.69 10*6/uL 4.2-5.4 [facility]: Blood hemoglobin measurement (mass/volume)on 06-26-2021 Hemoglobin (Bld) [Mass/Vol] 14.3 g/dL 12.0-15.0 [facility] Work Phone: Blood lymphocytes/100 leukoc yteson 06-26-2021 Lymphocytes/100 WBC (Bld) 33.8 % 19-41 [facility] Work Phone: Blood monocytes/100 leukocyt eson 06-26-2021 Monocytes/100 WBC (Bld) 8.4 % 0-10 [facility] Work Phone: Blood platelet mean volumeon 06-26-2021 Platelet mean volume (Bld) [Entitic vol] 9.8 fL 6.2-12.0 [facility] Work Phone: Determination of erythrocyte mean corpuscular volume (MCV)on 06-26-2021 MCV (RBC) [Entitic vol] 93.4 fL 81-99 [facility] Work Phone: Hematocrit Auto (Bld) [Volum e fraction]on 06-26-2021 Hematocrit (Bld) [Volume fraction] 43.8 % 37-47 [facility] Work Phone: Laboratory - Chemistry and C hemistry - challengeon 06-26-2021 ALP [Catalytic activity/Vol] 96 U/L 45-117 [facility] Work Phone: ALT [Catalytic activity/Vol] 26 U/L 13-56 [facility] Work Phone: CO2 [Moles/Vol] 29.0 mmol/L 21.0-32.0 [facility] Work Phone: Globulin (S) [Mass/Vol] 3.8 g/dL 2.2-4.2 [facility] Work Phone: Urea nitrogen/Creatinine [Mass ratio] 28.5 mg/mg 10-20 [facility] Work Phone: Laboratory - Hematology and Cell countson 06-26-2021 Erythrocyte distribution width (RBC) [Entitic vol] 44.6 fL 35.1-43.9 [facility] Work Phone: Erythrocyte distribution width (RBC) [Ratio] 12.9 % 11.6-14.6 [facility] Work Phone: Immature granulocytes/100 WBC (Bld) 0.200 % 0.0-0.9 [facility] Work Phone: Comment on above: IG% - Immature Granu locytes (promyelocytes, myelocytes and metamyelocytes) > 1% indicates that a LEFT SHIFT is Present. MCH (RBC) [Entitic mass] 30.5 pg 27.0-32.0 [facility] Work Phone: Nucleated RBC/100 WBC (Bld) [Ratio] 0 % 0-5 [facility] Work Phone: MCHC Auto (RBC) [Mass/Vol]on 06-26-2021 MCHC (RBC) [Mass/Vol] 32.6 g/dL 32-36 [facility] Work Phone: No Panel Informationon 06-26 Estimated GFR (MDRD) Amer 111 mL/min >60 [facility] Work Phone: Comment on above: GFR Calc Estimated GFR (MDRD) Non-Af Amer 91 mL/min >60 [facility] Work Phone: Comment on above: Non- GFR Calc Platelets bldon 06-26-2021 Platelets (Bld) [#/Vol] 317 10*3/uL 150-450 [facility] Work Phone: Serum or plasma albumin citlaly urement (mass/volume)on 06-26-2021 Albumin [Mass/Vol] 3.8 g/dL 3.2-5.0 [facility] Work Phone: Serum or plasma albumin/glob ulin mass ratioon 06-26-2021 Albumin/Globulin [Mass ratio] 1.0 {ratio} 0.9-2.4 [facility] Work Phone: Serum or plasma calcium citlaly urement (mass/volume)on 06-26-2021 Calcium [Mass/Vol] 9.3 mg/dL 8.5-10.1 [facility] Work Phone: Serum or plasma creatinine m easurement (mass/volume)on 06-26-2021 Creatinine [Mass/Vol] 0.70 mg/dL 0.55-1.02 [facility] Work Phone: Comment on above: The validity of the calculated GFR & GFRAA in patients over 70 years has not been determined. Clinical correlation is essential. Serum or plasma urea nitroge n measurement (mass/volume)on 06-26-2021 Urea nitrogen [Mass/Vol] 20 mg/dL 7-18 [facility] Work Phone: Thin prep Papanicolaou smear with manual screeningon 06-26-2021 Thin prep Papanicolaou smear with manual screening 17 U/L 15-37 [facility] Work Phone: Thin prep Papanicolaou smear with manual screening 2 5-15 [facility] Work Phone: MG Breast Tomosynthesis Scr Blon 11-25-2020 MG Breast Tomosynthesis Scr Bl Patient Name: LINSEY JENSEN Mammography ACCESSION EXAM DATE/TIME PROCEDURE ORDERING PROVIDER [id number] 11/25/2020 11:08 EDT MG Breast Tomosynthesis TORIE ISBELL BI Scr CPT code [id number] Reason For Exam (MG Breast Tomosynthesis BI Scr) screen Report TIME SINCE LAST MAMMOGRAM: Last mammogram was performed 1 year and 1 month ago. REASON FOR EXAM: screening, asymptomatic. PROCEDURE: MG BREAST TOMOSYNTHESIS BL SCR: NOVEMBER 25, 2020 - 2D/3D Procedure 3D Bilateral CC and MLO view(s) were taken. 2D Bilateral CC and MLO view(s) were taken. Prior study comparison: 2019, bilateral MG breast tomosynthesis bl scr performed at [facility]. July 12, 2018, bilateral MG breast tomosynthesis bl scr performed at [facility]. July 06, 2017, bilateral MG breast tomosynthesis bl scr performed at [facility]. TISSUE DENSITY: BIRADS A - The breast tissue is almost entirely fat. . PATIENT CANCER HISTORY: No Personal History of Cancer FAMILY CANCER HISTORY: Maternal Grandmother Colon or Rectal Cancer Paternal Grandmother Liver Cancer FINDINGS: No suspicious masses, architectural distortions or suspiciously clustered microcalcifications are identified. There is no evidence of skin thickening or nipple retraction. There are no significant changes when compared with prior studies. No mammographic evidence of malignancy. Markings on images: BB's = Nipples; skin lesions Open red devil = Palpable Line = Scar 2D digital mammography and tomosynthesis imaging were performed and reviewed with CAD. Mammography Report ASSESSMENT: Category 1 Negative RECOMMENDATION: Routine screening mammogram of both breasts in 1 year. . Report Dictated on Cancer Risk Assessment: This risk assessment is based on patient provided information collected in a risk survey taken at the time of this examination. Lifetime breast cancer risk: Average Risk - If greater than or equal to 20%, consider annual mammogram and annual screening Breast MRI or follow up in high risk clinic. A score of Average Risk indicates a score of less than 20%. Is the patient at elevated risk based on the HBOC criteria? No (Hereditary Breast and Ovarian Cancer) - If yes, consider genetic counseling and testing with high risk follow up. Is the patient at elevated risk based on the Coreas Syndrome criteria? No - If yes, consider genetic counseling and testing with high risk follow up. Final Signed Date and Time: 11/26/2020 3:54 pm Signed by: MD NATI, MORENA Dukes Normal [facility] HCVon 11-06-2016 Hep C Ab Negative Normal Negative [facility] ([place]) Comment on above: Performed By: #### C MP, GFR ####[address] [place], [place] [address]#### HCV1 ####[place] [id number] [place] [address] Hep C Ab Int No serological evidence of Hepatitis C infection, although levels of anti-HCV may be undetectable in early infection. Normal [facility] ([place]) Comment on above: Performed By: #### C MP, GFR ####[address] [place], [place] [address]#### HCV1 ####[address] [address] .GFRon 11-04-2016 eGFR (non-black) mL/min/{1.73_m2} Normal [facility] ([place]) Comment on above: Result Comment: GFR Population mean for , Non- Americans Ages 20-29 = 116 mL/min/1.73 sq.m. Ages 30-39 = 107 mL/min/1.73 sq.m. Ages 40-49 = 99 mL/min/1.73 sq.m. Ages 50-59 = 93 mL/min/1.73 sq.m. Ages 60-69 = 85 mL/min/1.73 sq.m. Ages 70+ = 75 mL/min/1.73 sq.m.Chronic Kidney Disease: Less than 60 mL/min/1.73 square metersEnd Stage Renal Disease: Less than 15 mL/min/1.73 square meters Performed By: #### C MP, GFR ####[address] [place], [place] [address]#### HCV1 ####[address] [address] eGFR (non-black) 111 ml/min/1.73sqm Normal [facility] ([place]) Comment on above: Result Comment: GFR Population mean for , Non- Americans Ages 20-29 = 116 mL/min/1.73 sq.m. Ages 30-39 = 107 mL/min/1.73 sq.m. Ages 40-49 = 99 mL/min/1.73 sq.m. Ages 50-59 = 93 mL/min/1.73 sq.m. Ages 60-69 = 85 mL/min/1.73 sq.m. Ages 70+ = 75 mL/min/1.73 sq.m.Chronic Kidney Disease: Less than 60 mL/min/1.73 square metersEnd Stage Renal Disease: Less than 15 mL/min/1.73 square meters Performed By: #### C MP, GFR ####[place] [address]#### HCV1 ####[place] [address] CMPon 11-04-2016 Alanine aminotransferase (ALT) 14 U/L Normal 10-35 [facility] ([place]) Comment on above: Performed By: #### C MP, GFR ####[place] [address]#### HCV1 ####[place] [address] Albumin 4.1 G/dL Normal 3.5-5.0 [facility] ([place]) Comment on above: Performed By: #### C MP, GFR ####[place] [address]#### HCV1 ####[place] [address] Albumin/Globulin Ratio 1.4 {ratio} Normal 1.1-2.5 [facility] ([place]) Comment on above: Performed By: #### C MP, GFR ####[place] [address]#### HCV1 ####[place] [address] Alk Phos 78 IU/L Normal 40-135 [facility] ([place]) Comment on above: Performed By: #### C MP, GFR ####[place] [address]#### HCV1 ####[place] [address] Aspartate aminotransferase (AST) 22 U/L Normal 10-40 [facility] ([place]) Comment on above: Performed By: #### C MP, GFR ####[facility] [place] [address]#### HCV1 ####[facility] [place] [address] Bili Total 1.0 mg/dL Normal 0.2-1.0 [facility] ([place]) Comment on above: Performed By: #### C MP, GFR ####[place] [id number]#### HCV1 ####[facility] [place] [address] BUN/Creatinine Ratio 23 ratio Normal 7-27 [facility] ([place]) Comment on above: Performed By: #### C MP, GFR ####[place] [id number]#### HCV1 ####[address] [address] Calcium 9.0 mg/dL Normal 8.4-10.2 [facility] ([place] Comment on above: Performed By: #### C MP, GFR ####[place] [id number]#### HCV1 ####[address] [address] Chloride 107 mmol/L Normal 98-107 [facility] ([place] Comment on above: Performed By: #### C MP, GFR ####[place] [id number]#### HCV1 ####[address] [address] CO2 21 mmol/L Low 22-29 [facility] ([place] Comment on above: Performed By: #### C MP, GFR ####[address] [address]#### HCV1 ####[address] [address] Creatinine 0.7 mg/dL Normal 0.6-1.2 [facility] ([place]) Comment on above: Performed By: #### C MP, GFR ####[address] [address]#### HCV1 ####[facility] [place] [address] Electrolyte Balance 11.0 mEq/L Normal [facility] ([place]) Comment on above: Performed By: #### C MP, GFR ####[place] [id number]#### HCV1 ####[address] [address] Globulin 3.0 G/dL Normal [facility] ([place]) Comment on above: Performed By: #### C MP, GFR ####[place] [id number]#### HCV1 ####[address] [address] Glucose mass conc 87 mg/dL Normal 70-105 [facility] ([place] Comment on above: Performed By: #### C MP, GFR ####[place] [address]#### HCV1 ####[address] [address] Potassium molar conc 5.0 mmol/L Normal 3.5-5.1 [facility] ([place]) Comment on above: Performed By: #### C MP, GFR ####[place] [id number]#### HCV1 ####[place] [address] Protein 7.1 G/dL Normal 6.0-8.3 [facility] ([place] Comment on above: Performed By: #### C MP, GFR ####[place] [id number]#### HCV1 ####[address] [address] Sodium 139 mmol/L Normal 136-146 [facility] ([place] Comment on above: Performed By: #### C MP, GFR ####[place] [address]#### HCV1 ####[facility] [place] [address] Urea nitrogen 16.0 mg/dL Normal 7.0-18.0 [facility] ([place] Comment on above: Performed By: #### C MP, GFR ####[address] [place], [place] [address]#### HCV1 ####[facility] [place] [address] Vital Signs Date Time Vital Sign Value Performing Clinician Facility 10-03-2024 08:45-0400 Body height 172.[address] Jacquie Agudelo DO Work Phone: [facility] 10-03-2024 08:45-0400 Body mass index (BMI) [Ratio] 37 kg/m2 Dr. Jacquie Agudelo DO Work Phone: [facility] 10-03-2024 08:45-0400 Body temperature 97.4 [degF] Dr. Jacquie Agudelo DO Work Phone: [facility] 10-03-2024 08:45-0400 Body weight 110.[address] Jacquie Agudelo DO Work Phone: [facility] 10-03-2024 08:45-0400 Diastolic blood pressure 84 mm[Hg] Dr. Jacquie Agudelo DO Work Phone: [facility] 10-03-2024 08:45-0400 Heart rate 85 /min Dr. Jacquie Agudelo DO Work Phone: [facility] 10-03-2024 08:45-0400 Respiratory rate 16 /min Dr. Jacquie Agudelo DO Work Phone: [facility] 10-03-2024 08:45-0400 SaO2% (BldA) [Mass fraction] 97 % Dr. Jacquie Agudelo DO Work Phone: [facility] 10-03-2024 08:45-0400 Systolic blood pressure 120 mm[Hg] Dr. Jacquie Agudelo DO Work Phone: [facility] 09-22-2024 11:07-0400 Body height 172.[address] Jacquie Agudelo DO Work Phone: [facility] 09-22-2024 11:07-0400 Body mass index (BMI) [Ratio] 37 kg/m2 Dr. Jacquie Agudelo DO Work Phone: [facility] 09-22-2024 11:07-0400 Body weight 110.[address] Jacquie Agudelo DO Work Phone: [facility] 09-22-2024 11:07-0400 Diastolic blood pressure 80 mm[Hg] Dr. Jacquie Agudelo DO Work Phone: [facility] 09-22-2024 11:07-0400 Heart rate 89 /min Dr. Jacquie Agudelo DO Work Phone: [facility] 09-22-2024 11:07-0400 Respiratory rate 18 /min Dr. Jacquie Agudelo DO Work Phone: [facility] 09-22-2024 11:07-0400 Systolic blood pressure 131 mm[Hg] Dr. Jacquie Agudelo DO Work Phone: [facility] 08-23-2024 14:06-0400 Body height 172.[address] Jacquie Agudelo DO Work Phone: [facility] 08-23-2024 14:06-0400 Body mass index (BMI) [Ratio] 37.7 kg/m2 Dr. Jacquie Agudelo DO Work Phone: [facility] 08-23-2024 14:06-0400 Body temperature 97.4 [degF] Dr. Jacquie Agudelo DO Work Phone: [facility] 08-23-2024 14:06-0400 Body weight 112.[address] Jacquie Agudelo DO Work Phone: [facility] 08-23-2024 14:06-0400 Diastolic blood pressure 84 mm[Hg] Dr. Jacquie Agudelo DO Work Phone: [facility] 08-23-2024 14:06-0400 Heart rate 75 /min Dr. Jacquie Corona Phone: [facility] 08-23-2024 14:06-0400 Respiratory rate 16 /min Dr. Jacquie Agudelo DO Work Phone: [facility] 08-23-2024 14:06-0400 SaO2% (BldA) [Mass fraction] 96 % Dr. Jacquie Agudelo DO Work Phone: [facility] 08-23-2024 14:06-0400 Systolic blood pressure 136 mm[Hg] Dr. Jacquie Agudelo DO Work Phone: [facility] 07-04-2024 10:16-0400 Diastolic blood pressure 90 mm[Hg] Hay Sinclair MD Work Phone: [facility] 07-04-2024 10:16-0400 Systolic blood pressure 140 mm[Hg] Hay Sinclair MD Work Phone: [facility] 07-04-2024 10:06-0400 Body height 167.6 cm Hay Sinclair MD Work Phone: [facility] 07-04-2024 10:06-0400 Body mass index (BMI) [Ratio] 40.45 kg/m2 Hay Sinclair MD Work Phone: [facility] 07-04-2024 10:06-0400 Body weight 113.67 kg Hay Sinclair MD Work Phone: [facility] 07-04-2024 10:06-0400 Heart rate 63 /min Hay Sinclair MD Work Phone: [facility] 07-04-2024 10:06-0400 SaO2% (BldA) [Mass fraction] 96 % Hay Sinclair MD Work Phone: [facility] 02-03-2024 10:25-0500 Body height 167.6 cm Torie Isbell MD Work Phone: [facility] 02-03-2024 10:25-0500 Body mass index (BMI) [Ratio] 38.74 kg/m2 Torie Isbell MD Work Phone: [facility] 02-03-2024 10:25-0500 Body weight 108.86 kg Torie Isbell MD Work Phone: [facility] 01-04-2024 10:54-0500 Diastolic blood pressure 88 mm[Hg] Hay Sinclair MD Work Phone: [facility] 01-04-2024 10:54-0500 Systolic blood pressure 140 mm[Hg] Hay Sinclair MD Work Phone: [facility] 01-04-2024 10:43-0500 Body height 167.6 cm Hay Sinclair MD Work Phone: [facility] 01-04-2024 10:43-0500 Body mass index (BMI) [Ratio] 38.41 kg/m2 Hay Sinclair MD Work Phone: [facility] 01-04-2024 10:43-0500 Body weight 107.96 kg Hay Sinclair MD Work Phone: [facility] 01-04-2024 10:43-0500 Heart rate 61 /min Hay Sinclair MD Work Phone: [facility] 01-04-2024 10:43-0500 SaO2% (BldA) [Mass fraction] 99 % Hay Sinclair MD Work Phone: [facility] 07-13-2023 09:45-0400 Body height 167.6 cm Hay Sinclair MD Work Phone: [facility] 07-13-2023 09:45-0400 Body mass index (BMI) [Ratio] 38.77 kg/m2 Hay Sinclair MD Work Phone: [facility] 07-13-2023 09:45-0400 Body weight 108.95 kg Hay Sinclair MD Work Phone: [facility] 07-13-2023 09:45-0400 Diastolic blood pressure 86 mm[Hg] Hay Sinclair MD Work Phone: [facility] 07-13-2023 09:45-0400 Heart rate 65 /min Hay Sinclair MD Work Phone: [facility] 07-13-2023 09:45-0400 SaO2% (BldA) [Mass fraction] 99 % Hay Sinclair MD Work Phone: [facility] 07-13-2023 09:45-0400 Systolic blood pressure 138 mm[Hg] Hay Sinclair MD Work Phone: [facility] 01-26-2023 10:16-0500 Body height 167.6 cm Torie Isbell MD Work Phone: [facility] 01-26-2023 10:16-0500 Body mass index (BMI) [Ratio] 37.12 kg/m2 Torie Isbell MD Work Phone: [facility] 01-26-2023 10:16-0500 Body weight 104.33 kg Torie Isbell MD Work Phone: [facility] 01-12-2023 10:32-0500 Diastolic blood pressure 80 mm[Hg] Hay Sinclair MD Work Phone: [facility] 01-12-2023 10:32-0500 Systolic blood pressure 140 mm[Hg] Hay Sinclair MD Work Phone: [facility] 01-12-2023 10:28-0500 Body height 170.2 cm Hay Sinclair MD Work Phone: [facility] 01-12-2023 10:28-0500 Body mass index (BMI) [Ratio] 37.9 kg/m2 Hay Sinclair MD Work Phone: [facility] 01-12-2023 10:28-0500 Body weight 109.77 kg Hay Sinclair MD Work Phone: [facility] 01-12-2023 10:28-0500 Heart rate 61 /min Hay Sinclair MD Work Phone: [facility] 01-12-2023 10:28-0500 SaO2% (BldA) [Mass fraction] 100 % Hay Sinclair MD Work Phone: [facility] 08-05-2022 11:50-0400 Body height 167.6 cm Hay Sinclair MD Work Phone: [facility] 08-05-2022 11:50-0400 Body mass index (BMI) [Ratio] 38.25 kg/m2 Hay Sinclair MD Work Phone: [facility] 08-05-2022 11:50-0400 Body weight 107.5 kg Hay Sinclair MD Work Phone: [facility] 08-05-2022 11:50-0400 Diastolic blood pressure 80 mm[Hg] Hay Sinclair MD Work Phone: [facility] 08-05-2022 11:50-0400 Heart rate 64 /min Hay Sinclair MD Work Phone: [facility] 08-05-2022 11:50-0400 SaO2% (BldA) [Mass fraction] 99 % Hay Sinclair MD Work Phone: [facility] 08-05-2022 11:50-0400 Systolic blood pressure 122 mm[Hg] Hay Sinclair MD Work Phone: [facility] 05-26-2022 13:55-0400 Body height 172.[address] Jacquie Agudelo Work Phone: [facility] 05-26-2022 13:43-0400 Body mass index (BMI) [Ratio] 35.9 kg/m2 Dr. Jacquie Agudelo Work Phone: [facility] 05-26-2022 13:43-0400 Body temperature 97.6 [degF] Dr. Jacquie Agudelo Work Phone: [facility] 05-26-2022 13:43-0400 Body weight 107.[address] Jacquie Agudelo Work Phone: [facility] 05-26-2022 13:43-0400 Diastolic blood pressure 96 mm[Hg] Dr. Jacquie Agudelo Work Phone: [facility] 05-26-2022 13:43-0400 Heart rate 77 /min Dr. Jacquie Agudelo Work Phone: [facility] 05-26-2022 13:43-0400 Respiratory rate 18 /min Dr. Jacquie Agudelo Work Phone: [facility] 05-26-2022 13:43-0400 SaO2% (BldA) [Mass fraction] 97 % Dr. Jacquie Agudelo Work Phone: [facility] 05-26-2022 13:43-0400 Systolic blood pressure 159 mm[Hg] Dr. Jacquie Agudelo Work Phone: [facility] 05-05-2022 10:18-0400 Diastolic blood pressure 86 mm[Hg] [facility] 05-05-2022 10:18-0400 Systolic blood pressure 150 mm[Hg] [facility] 05-05-2022 10:04-0400 Body height 167.6 cm [facility] 05-05-2022 10:04-0400 Body mass index (BMI) [Ratio] 37.77 kg/m2 [facility] 05-05-2022 10:04-0400 Body weight 106.14 kg [facility] 05-05-2022 10:04-0400 Heart rate 63 /min [facility] 05-05-2022 10:04-0400 SaO2% (BldA) [Mass fraction] 97 % [facility] 04-29-2022 15:22-0500 Body mass index (BMI) [Ratio] 37.45 kg/m2 Linsey Greg [employer] SUPERVISOR - PERSONAL FINANCIAL COUNSELOR Work Phone: [facility] 04-29-2022 15:22-0500 Body weight 105.23 kg Linsey Greg [employer] SUPERVISOR - PERSONAL FINANCIAL COUNSELOR Work Phone: [facility] 04-29-2022 15:22-0500 Diastolic blood pressure 98 mm[Hg] Linsey O'Shell POWDERED [employer]GAR SUPERVISOR - PERSONAL FINANCIAL COUNSELOR Work Phone: [facility] 04-29-2022 15:22-0500 Heart rate 90 /min Linsey O'Shell POWDERED [employer]GAR SUPERVISOR - PERSONAL FINANCIAL COUNSELOR Work Phone: [facility] 04-29-2022 15:22-0500 SaO2% (BldA) [Mass fraction] 98 % Linsey O'Shell POWDERED [employer]GAR SUPERVISOR - PERSONAL FINANCIAL COUNSELOR Work Phone: [facility] 04-29-2022 15:22-0500 Systolic blood pressure 150 mm[Hg] Lnisey O'Shell P[employer]DERED [employer]GAR SUPERVISOR - PERSONAL FINANCIAL COUNSELOR Work Phone: [facility] 04-26-2022 12:50-0500 Body temperature 98.29 [degF] Jasmyn Zambrano MD Work Phone: [facility] 04-26-2022 12:50-0500 Diastolic blood pressure 78 mm[Hg] Jasmyn Zambrano MD Work Phone: [facility] 04-26-2022 12:50-0500 Heart rate 72 /min Jasmyn Zambrano MD Work Phone: [facility] 04-26-2022 12:50-0500 Respiratory rate 16 /min Jasmyn Zambrano MD Work Phone: [facility] 04-26-2022 12:50-0500 Systolic blood pressure 120 mm[Hg] Jasmyn Zambrano MD Work Phone: [facility] 04-26-2022 11:55-0500 SaO2% (BldA) [Mass fraction] 99 % Jasmyn Zambrano MD Work Phone: [facility] 04-26-2022 09:20-0500 Body height 167.6 cm Jasmyn Zambrano MD Work Phone: [facility] 04-26-2022 09:20-0500 Body mass index (BMI) [Ratio] 35.51 kg/m2 Jasmyn Zambrano MD Work Phone: [facility] 04-26-2022 09:20-0500 Body weight 99.79 kg Jasmyn Zambrano MD Work Phone: [facility] 04-11-2022 14:26-0500 Body temperature 98.8 [degF] Scott Friend DO Work Phone: [facility] 04-11-2022 14:26-0500 Diastolic blood pressure 93 mm[Hg] Scott Christiansonaci DO Work Phone: [facility] 04-11-2022 14:26-0500 Heart rate 92 /min Scott Christiansonaci DO Work Phone: [facility] 04-11-2022 14:26-0500 Respiratory rate 20 /min Scott Christiansonaci DO Work Phone: [facility] 04-11-2022 14:26-0500 SaO2% (BldA) [Mass fraction] 95 % Scott Friend DO Work Phone: [facility] 04-11-2022 14:26-0500 Systolic blood pressure 150 mm[Hg] Scott Christiansonaci DO Work Phone: [facility] 04-11-2022 11:35-0500 Body height 167.6 cm Scott Friend DO Work Phone: [facility] 04-11-2022 11:35-0500 Body mass index (BMI) [Ratio] 35.51 kg/m2 Scott Christiansonaci DO Work Phone: [facility] 04-11-2022 11:35-0500 Body weight 99.79 kg Scott Christiansonaci DO Work Phone: [facility] 06-26-2021 10:30-0400 Body height 172.[address] Jacquie Agudelo Work Phone: [facility] Work Phone: 06-26-2021 10:30-0400 Body mass index (BMI) [Ratio] 34.9 kg/m2 Dr. Jacquie Agudelo Work Phone: [facility] Work Phone: 06-26-2021 10:30-0400 Body temperature 98 [degF] Dr. Jacquie Agudelo Work Phone: [facility] Work Phone: 06-26-2021 10:30-0400 Body weight 104.[address] Jacquie Agudelo Work Phone: [facility] Work Phone: 06-26-2021 10:30-0400 Diastolic blood pressure 84 mm[Hg] Dr. Jacquie Agudelo Work Phone: [facility] Work Phone: 06-26-2021 10:30-0400 Heart rate 59 /min Dr. Jacquie Agudelo Work Phone: [facility] Work Phone: 06-26-2021 10:30-0400 Respiratory rate 14 /min Dr. Jacquie Agudelo Work Phone: [facility] Work Phone: 06-26-2021 10:30-0400 SaO2% (BldA) [Mass fraction] 99 % Dr. Jacquie Agudelo Work Phone: [facility] Work Phone: 06-26-2021 10:30-0400 Systolic blood pressure 136 mm[Hg] Dr. Jacquie Agudelo Work Phone: [facility] Work Phone: Encounters Encounter Date Encounter Type Care Provider Facility Start: 10-17-2024 ambulatory Venkat [facility] Facility:[facility] Start: 10-04-2024 ambulatory Marcellus [facility] Facility:[facility] Start: 10-03-2024 End: 10-03-2024 Patient encounter procedure Elaina STEVEN -[facility] Work Phone: Start: 10-03-2024 End: 10-03-[address] Jacquie Agudelo DO Work Phone: -[facility] Start: 09-22-2024 End: 09-22-[address] Venkat Gonsalez MD -[facility] Work Phone: Start: 09-22-2024 End: 09-22-[address] Jacquie Agudelo DO Work Phone: -[facility] Start: 08-23-2024 End: 08-23-[address] Jacquie Agudelo DO Work Phone: -[facility] Start: 08-23-2024 End: 08-23-[address] Jacquie Lucas DO -[facility] Work Phone: Start: 08-23-2024 End: 08-23-[address] Jacquie Lucas DO -[facility] Work Phone: Start: 08-23-2024 End: 08-23-[address] Jacquie Agudelo DO Work Phone: -[facility] Start: 08-23-2024 End: 08-23-2024 ambulatory Jacquie Agudelo Facility:[facility] Start: 07-24-2024 End: 07-24-2024 Refill Hay Sinclair MD Work Phone: [facility] Start: 07-18-2024 End: 09-17-2024 Follow-up encounter Tracy Rene APRN - PERSONAL FINANCIAL COUNSELOR Work Phone: [facility] Comment on above: Comprehensive metabo lic panel Start: 07-04-2024 End: 07-04-2024 Office outpatient visit 25 minutes Hay Sinclair MD Work Phone: [facility] Comment on above: Paroxysmal atrial fi brillation (HCC) (Primary Dx); Primary hypertension; TATIANA on CPAP; S/P partial resection of colon Start: 07-04-2024 End: 07-04-2024 ambulatory HAY SINCLAIR [facility] Start: 06-27-2024 End: 06-27-2024 Refill Hay Sinclair MD Work Phone: [facility] Comment on above: Primary hypertension (Primary Dx) Start: 02-04-2024 End: 02-04-2024 ambulatory Mary Grace Cat NP Facility:[facility] Start: 02-03-2024 End: 02-03-2024 Subsequent hospital visit by physician Torie Isbell MD Work Phone: [facility] Comment on above: Encounter for screen ing mammogram for malignant neoplasm of breast Start: 02-03-2024 End: 02-03-2024 ambulatory TORIE ISBELL [facility] Start: 01-27-2024 End: 04-27-2024 Transcribe Orders Torie Isbell MD Work Phone: [facility] Comment on above: Encounter for screen ing mammogram for malignant neoplasm of breast (Primary Dx) Start: 01-22-2024 End: 01-24-2024 Refill Hay Sinclair MD Work Phone: [facility] Comment on above: Persistent atrial fi brillation (HCC) Start: 01-21-2024 End: 01-21-2024 Refill Hay Sinclair MD Work Phone: [facility] Comment on above: Persistent atrial fi brillation (HCC) Start: 01-04-2024 End: 01-04-2024 Office outpatient visit 25 minutes Hay Sinclair MD Work Phone: [facility] Comment on above: Paroxysmal atrial fi brillation (HCC) (Primary Dx); Primary hypertension; TATIANA on CPAP; S/P partial resection of colon Start: 01-04-2024 End: 01-04-2024 ambulatory [facility] Start: 07-13-2023 End: 07-13-2023 Office outpatient visit 25 minutes Hay Sinclair MD Work Phone: [facility] Medical [facility] Cardiology Comment on above: Persistent atrial fi brillation (HCC) (Primary Dx); TATIANA on CPAP; Primary hypertension Start: 01-26-2023 End: 01-26-2023 Subsequent hospital visit by physician Torei Isbell MD Work Phone: [facility] Comment on above: Encounter for screen ing mammogram for malignant neoplasm of breast Start: 01-12-2023 End: 01-12-2023 Office outpatient visit 25 minutes Hay Sinclair MD Work Phone: [facility] Comment on above: Persistent atrial fi brillation (HCC) (Primary Dx); Primary hypertension; TATIANA on CPAP Start: 12-18-2022 Transcribe Orders Torie Hall se, MD Work Phone: [facility] Comment on above: Encounter for screen ing mammogram for malignant neoplasm of breast (Primary Dx) Start: 08-05-2022 End: 08-05-2022 Office outpatient new 45 minutes Hay Sinclair MD Work Phone: [facility] Comment on above: Persistent atrial fi brillation (HCC); Primary hypertension; S/P partial resection of colon; Acute cough Start: 06-30-2022 End: 06-30-[address] Jacquie Agudelo Work Phone: [facility] Work Phone: Start: 06-30-2022 End: 06-30-[address] Jacquie Agudelo Work Phone: [facility] Start: 06-10-2022 End: 06-10-[address] Jacquie Agudelo Work Phone: [facility] Work Phone: Start: 06-10-2022 End: 06-10-[address] Jacquie Agudelo Work Phone: [facility] Start: 06-08-2022 End: 06-08-[address] Jacquie Agudelo Work Phone: [facility] Work Phone: Start: 06-08-2022 End: 06-08-[address] Jacquie Agudelo Work Phone: [facility] Start: 05-26-2022 End: 05-26-[address] Jacquie Agudelo Work Phone: [facility] Start: 05-05-2022 End: 05-05-2022 Clinical Support [facility] Cardiology Med Nurse/Ines [facility] Comment on above: Atrial fibrillation with RVR (CMS/HCC) (HCC) Start: 04-29-2022 End: 04-29-2022 Office outpatient visit 40 minutes Linsey Greg POWDERED SUGAR SUPERVISOR - PERSONAL FINANCIAL COUNSELOR Work Phone: [facility] Comment on above: Atrial fibrillation, unspecified type (HCC) (Primary Dx); Primary hypertension Start: 04-26-2022 End: 04-26-2022 Subsequent hospital visit by physician [facility] Comment on above: Arrived Start: 04-26-2022 End: 04-26-2022 Emergency department patient visit Jasmyn Zambrano MD Work Phone: [facility] Comment on above: Atrial fibrillation with rapid ventricular response (CMS/HCC) (HCC) (Primary Dx) Start: 04-13-2022 Telephone encounter Mary Grace Del Riokaterina POWDERED SUGAR SUPERVISOR - PERSONAL FINANCIAL COUNSELOR Work Phone: [facility] Comment on above: Appointment Start: 04-09-2022 End: 04-11-2022 Evaluation and management of inpatient Scott Friend DO Work Phone: [facility] 4W TELEMETRY Comment on above: Atrial fibrillation, unspecified type (HCC) (Primary Dx); Hematochezia Start: 12-29-2021 Transcribe Orders Torie Hall se, MD Work Phone: [facility] Comment on above: Encounter for screen ing mammogram for malignant neoplasm of breast (Primary Dx) Start: 06-26-2021 End: 06-26-[address] Jacquie Agudelo Work Phone: [facility] [place] Start: 06-26-2021 End: 06-26-[address] Jacquie Agudelo Work Phone: [facility] Start: 11-25-2020 End: 11-25-2020 Subsequent hospital visit by physician Torie Isbell MD Work Phone: [facility] Comment on above: Arrived Start: 11-04-2016 End: 11-05-2016 Ambulatory JACQUIE [facility] Facility:B Procedures Date Procedure Procedure Detail Performing Clinician Start: 07-04-2024 Ecg routine ecg w/le ast 12 lds w/i&r Hay Sinclair MD Work Phone: Start: 02-03-2024 End: 02-03-2024 Screening digital breast tomosynthesis bi Torie Isbell MD Work Phone: Start: 01-04-2024 Ecg routine ecg w/le ast 12 lds w/i&r Hay Sinclair MD Work Phone: Start: 07-13-2023 Ecg routine ecg w/le ast 12 lds trcg only w/o i&r Hay Sinclair MD Work Phone: Start: 01-26-2023 End: 01-26-2023 Screening digital breast tomosynthesis bi Torie Isbell MD Work Phone: Start: 01-12-2023 Ecg routine ecg w/le ast 12 lds w/i&r Hay Sinclair MD Work Phone: Start: 08-05-2022 Ecg routine ecg w/le ast 12 lds w/i&r Hay Sinclair MD Work Phone: Start: 05-05-2022 Ecg routine ecg w/le ast 12 lds w/i&r Hay Sinclair MD Work Phone: Start: 04-29-2022 Ecg routine ecg w/le ast 12 lds trcg only w/o i&r Raul Montoya MD Work Phone: Start: 04-26-2022 End: 04-26-2022 Ecg routine ecg w/least 12 lds trcg only w/o i&r Jasmyn Zambrano MD Work Phone: Start: 04-26-2022 Radiologic exam ches t single view Gaudencio Hathaway MD Work Phone: Start: 04-26-2022 Basic metabolic pane l calcium total Gaudencio Hathaway MD Work Phone: Start: 04-11-2022 Echo tthrc r-t 2d w/wom-mode compl spec&colr d Jennyfer Dias MD Work Phone: Start: 04-11-2022 End: 04-11-2022 Colonoscopy flx dx w/collj spec when pfrmd Tiffani Felix MD Work Phone: Start: 04-11-2022 Basic metabolic pane l calcium total Jennyfer Dias MD Work Phone: Start: 04-11-2022 Colonoscopy Scott ray DO Work Phone: Start: 04-10-2022 Thromboplastin time partial plasma/whole blood Jennyfer Dias MD Work Phone: Start: 04-10-2022 Thromboplastin time partial plasma/whole blood Jennyfer Dias MD Work Phone: Start: 04-10-2022 Ecg routine ecg w/le ast 12 lds trcg only w/o i&r Jennyfer Dias MD Work Phone: Start: 04-10-2022 Basic metabolic pane l calcium total Jennyfer Dias MD Work Phone: Start: 04-09-2022 Ecg routine ecg w/le ast 12 lds trcg only w/o i&r Scott Friend DO Work Phone: Start: 04-09-2022 Blood count complete automated Jennyfer Dias MD Work Phone: Start: 04-09-2022 Ecg routine ecg w/le ast 12 lds trcg only w/o i&r Jennyfer Dias MD Work Phone: Start: 04-09-2022 Comprehensive metabo lic panel Miller Weems DO Work Phone: Start: 04-09-2022 End: 04-09-2022 Ecg routine ecg w/least 12 lds trcg only w/o i&r Miller Weems DO Work Phone: Start: 04-09-2022 PB ED PLACEHOLDER Abel Weems DO Work Phone: Start: 04-09-2022 Cardioversion electi ve arrhythmia external Miller Weems DO Work Phone: Start: 01-23-2022 Mammography Torie wiggins MD Work Phone: Start: 06-16-2016 Colonoscopy Torie wiggins MD Work Phone: Start: 06-18-2015 Microscopic observat ion [Identifier] in Cervix by Cyto stain Torie Isbell MD Work Phone: H/O: surgery History of intes tinal surgery Dr. Jacquie Agudelo Work Phone: Comment on above: 01/06 H/O: surgery History of lung surgery Dr. Jacquie Agudelo Work Phone: Plan of Treatment Date Care Activity Detail Author Start: 04-11-2032 Screening for malign ant neoplasm of colon [facility] Start: 06-16-2026 Screening for malign ant neoplasm of colon [facility] Start: 12-22-2025 DTaP/Tdap/Td vaccine (2 - Td or Tdap) DTaP/Tdap/Td vaccine (2 - Td or Tdap) [facility] Work Phone: Start: 12-22-2025 DTaP/Tdap/Td Vaccine s (2 - Td or Tdap) DTaP/Tdap/Td Vaccines (2 - Td or Tdap) [facility] Start: 02-02-2025 Screening for malign ant neoplasm of breast Mammogram [facility] Start: 01-02-2025 End: 01-02-2025 Patient encounter procedure 01/02/2025 10:30 AM EST Office Visit [facility] - [place] [address] [place] [address] Hay Sinclair MD [address] [place] [address] [place] [address] [facility] Start: 10-23-2024 Influenza vaccination [facility] Start: 09-22-2024 Evaluation of diagno stic study results [facility] Start: 07-04-2024 End: 07-04-2024 Patient encounter procedure 07/04/2024 10:15 AM EDT Office Visit [facility] [address] [place] [phone] Hay Sinclair MD [address] [place] [address] [facility] Start: 06-27-2024 End: 06-27-2025 CBC panel - Blood by Automated count CBC Lab Routine Primary hypertension Expected: 06/27/2024 (Approximate), Expires: 06/27/2025 [facility] Work Phone: Comment on above: Expected: 06/27/2024 (Approximate), Expires: 06/27/2025 Start: 06-27-2024 End: 06-27-2025 Comprehensive metabolic 1998 panel - Serum or Plasma Comprehensive metabolic panel Lab Routine Primary hypertension Expected: 06/27/2024 (Approximate), Expires: 06/27/2025 [facility] Comment on above: Expected: 06/27/2024 (Approximate), Expires: 06/27/2025 Start: 01-27-2024 Screening for malign ant neoplasm of breast Mammogram [facility] Start: 01-18-2024 End: 01-18-2024 Patient encounter procedure 01/18/2024 10:30 AM EST Office Visit [facility] [address] [place] [phone] Hay Sinclair MD [address] [place] [address] [facility] Start: 10-24-2023 COVID-19 Vaccine ( season) COVID-19 Vaccine ( season) [facility] Start: 10-24-[address] [facility] Start: 2023 RSV Immunization age d 60 or older (1 - 1-dose 60+ series) RSV Immunization aged 60 or older (1 - 1-dose 60+ series) [facility] Start: 2023 RSV Immunization for Adults (1 - Risk 60-74 years 1-dose series) RSV Immunization for Adults (1 - Risk 60-74 years 1-dose series) [facility] Start: 07-13-2023 End: 07-12-2024 Basic metabolic 1998 panel - Serum or Plasma Basic metabolic panel Lab Routine Persistent atrial fibrillation (HCC) TATIANA on CPAP Primary hypertension Expected: 07/13/2023 (Approximate), Expires: 07/12/2024 [facility] [employer] Work Phone: Comment on above: Expected: 07/13/2023 (Approximate), Expires: 07/12/2024 Start: 07-13-2023 End: 07-12-2024 CBC panel - Blood by Automated count CBC Lab Routine Persistent atrial fibrillation (HCC) TATIANA on CPAP Primary hypertension Expected: 07/13/2023 (Approximate), Expires: 07/12/2024 [facility] Comment on above: Expected: 07/13/2023 (Approximate), Expires: 07/12/2024 Start: 07-13-2023 End: 07-13-2023 Patient encounter procedure 07/13/2023 9:30 AM EDT Office Visit [facility] [place] [phone] Hay Sinclair MD [address] [facility] [address] [place] [address] [facility] Start: 01-26-2023 End: 01-26-2023 Patient encounter procedure 01/26/2023 10:20 AM EST Appointment [address] [phone] Torie Isbell MD [facility] [address] [place] [phone] [facility] Start: 01-23-2023 Screening for malign ant neoplasm of breast Mammogram [facility] Start: 01-12-2023 End: 01-12-2023 Patient encounter procedure 01/12/2023 10:30 AM EST Office Visit [facility] [address] [place] [address] [place] [phone] Hay Sinclair MD [address] [place] [address] [place] [address] [facility] Start: 10-23-2022 COVID-19 Vaccine ( season) COVID-19 Vaccine () [facility] Start: 10-23-2022 Influenza vaccination Influenza Vacc ine (#1) [facility] Start: 08-05-2022 End: 08-05-2022 Patient encounter procedure 08/05/2022 Office Visit Cardiology Hay Sinclair MD [address] [place] [address] [place] [address] [facility] Start: 05-05-2022 End: 05-05-2022 Clinical Support 05/05/2022 Clinical Support Cardiology [facility] Start: 04-29-2022 End: 04-29-2022 Patient encounter procedure 04/29/2022 Office Visit Cardiology Linsey Garza, POWDERED SUGAR SUPERVISOR - [facility] [address] [address] [facility] Start: 10-23-2021 Influenza vaccination Influenza Vacc ine (#1) [facility] Start: 10-19-2021 Screening for malign ant neoplasm of breast Breast cancer screen [facility] Work Phone: Start: 10-23-2020 Influenza vaccination Flu vaccine (# 1) [facility] Work Phone: Start: 06-17-2020 Screening for malign ant neoplasm of cervix [facility] Start: 06-17-2018 Screening for malign ant neoplasm of cervix Pap smear [facility] Work Phone: Start: 01-01-2016 Screening for malign ant neoplasm of colon FOBT [facility] Start: 10-19-2013 Pneumococcal Vaccine : 50+ Years (1 of 1 - PCV) Pneumococcal Vaccine: 50+ Years (1 of 1 - PCV) [facility] Start: 10-19-2013 Shingles Vaccine (1 of 2) Shingles Vaccine (1 of 2) [facility] Work Phone: Start: 10-19-2013 Zoster Vaccines (1 of 2) Zoste r Vaccines (1 of 2) [facility] Start: 2003 Lipid panel Lipid screen [facility] Work Phone: Start: 10-19-1993 Screening for malign ant neoplasm of cervix [facility] Start: 10-19-1984 Screening for malign ant neoplasm of cervix Pap Smear [facility] Start: 10-19-1982 Hepatitis B Vaccines (1 of 3 - 19+ 3-dose series) Hepatitis B Vaccines (1 of 3 - 19+ 3-dose series) [facility] Start: 10-19-1981 Diabetes mellitus screening Diabetes Screening [facility] Start: 10-19-1981 Hepatitis C screening Hepatitis C Sc reening [facility] Start: 10-19-1978 HIV screening HIV screen [facility] Work Phone: Start: 1975 COVID-19 Vaccine (1) COVID-19 Vaccin e (1) [facility] Work Phone: Start: 1975 Depression Screening Depression Scre ening [facility] Start: 10-19-1964 MMR Vaccines (1 of 1 - Standard series) MMR Vaccines (1 of 1 - Standard series) [facility] Start: 04-21-1964 COVID-19 Vaccine (#1) COVID-19 Vacci ne (#1) [facility] Start: 1965 Hepatitis B Vaccines (1 of 3 - 3-dose series) Hepatitis B Vaccines (1 of 3 - 3-dose series) [facility] Start: 1965 Hepatitis C screening Hepatitis C sc reen [facility] Work Phone: Start: 1965 HIV screening HIV Screening [facility] Start: 1963 Lipid panel Lipid Panel [facility] Start: 1965 Screening for malign ant neoplasm of colon [facility] Cardiac event recording [facility] Comprehensive metabo lic 2000 panel - Serum or Plasma [facility] End: 04-09-2022 ECG 12 lead ECG 12 lead CV ECG Routine Once for 1 Occurrences starting 04/09/2022 until 04/09/2022 [employer] Work Phone: Comment on above: Once for 1 Occurrenc es starting 04/09/2022 until 04/09/2022 ECG 12 lead [employer] Work Phone: ECG 12 lead - CLINIC PERFORMED ECG 12 lead - CLINIC PERFORMED CV ECG Routine Persistent atrial fibrillation (HCC) 07/13/2023 9:45 AM EDT [employer] ECG 12 lead - CLINIC PERFORMED ECG 12 lead - CLINIC PERFORMED CV ECG Routine Atrial fibrillation, unspecified type (HCC) 04/29/2022 3:22 PM EST [employer] Work Phone: Radionuclide imaging of perfusion of myocardium under exercise stress [facility] End: 11-25-2020 Screening digital breast tomosynthesis bi [employer] DIGITAL SCREEN BILATERAL Imaging Routine Once for 1 Occurrences starting 11/25/2020 until 11/25/2020 [employer] Work Phone: Comment on above: Once for 1 Occurrenc es starting 11/25/2020 until 11/25/2020 Screening digital br east tomosynthesis bi LEODAN KENDELL DIGITAL SCREEN BILATERAL Imaging Routine 11/25/2020 11:07 AM EDT [facility] Work Phone: Thyroid stimulating hormone measurement [facility] Tissue exam [employer] Work Phone: Comment on above: Release Upon Ronnie martinez for 1 Occurrences starting 04/11/2022 [facility] Immunizations Immunization Date Immunization Notes Care Provider Fa callie NEGATED: Highlighted row has not occurred!04-10-2022 Influenza, injectable, Madin Veronique Canine Kidney, preservative free, quadrivalent Scott Friend DO Work Phone: [employer] Comment on above: Deferred: Patient Re fused Payers Date Payer Category Payer Self-pay [id number] 2023 Commercial Managed C [facility] [employer] [id number] 2021 Unknown [id number] 2014 Unknown [id number] Unknown [employer] INSURANCE [id number] [id number] Unknown [id number] Unknown [id number] Unknown [id number] Unknown [id number] Unknown [id number] Unknown [id number] Unknown [id number] Social History Date Type Detail Facility Start: 07-06-2018 End: 02-02-2023 Tobacco smoking status DEIS Never smoker [facility] Work Phone: Start: 07-06-2018 Tobacco use and exposure Never used [facility] Start: 07-06-2018 End: 07-04-2024 Alcohol intake Current non-drinker of alcohol (finding) [facility] Work Phone: Start: 07-06-2018 End: 07-04-2024 Alcohol intake [facility] Start: 1965 Sex Assigned At Not on file [employer] Work Phone: Start: 06-26-2021 End: 05-26-2022 Tobacco smoking status NHIS Unknown if ever smoked [facility] Start: 1965 Sex Assigned At Female [facility] Start: 04-09-2022 History SDOH Alcohol Frequency 1 [facility] Start: 04-09-2022 History SDOH Alcohol Std Drinks 0 [facility] Start: 03-30-2022 End: 08-05-2022 Exposure to SARS-CoV-2 (event) Not sure [facility] Start: 04-09-2022 End: 07-04-2024 Alcohol Use Disorder Identification Test - Consumption [AUDIT-C] [facility] How often to you hav e a drink containing alcohol? Never [facility] How many standard dr inks containing alcohol do you have on a typical day? Patient does not drink [facility] Start: 09-22-2021 Sex Female (finding) [facility] Clinical Notes 04-09-2022 to 10-03-2024 Note Date & Type Note Facility 10-03-2024 Progress note [facility] 10-03-2024 Progress note Note Date/Time October 03, 2024 9:40am [facility] [address] [place] [address] [place] [address] OFFICE VISIT Date of Service: 10/03/24 MR#: [id number] Acct: [id number] Name: LINSEY JENSEN Rep #: [id number] : 1965 Provider: MAURIZIO olsen Ungerer Age/Sex: 58/F Location: [facility] Status: Signed Intake Vital Signs 09/22/24 11:07 10/03/24 08:45 Height 5 ft 8 in 5 ft 8 in Weight: 244 lb 243 lb 4 oz BMI 37.0 37.0 BP 131/80 H 120/84 H Blood Pressure Location Lt brachial Lt brachial Position Sitting Sitting Respiration 18 16 Pulse 89 85 Pulse Source Monitor Monitor Temp 97.4 F L Temp Source Temporal Pulse Oximetry (%) 97 Oxygen Delivery Method room air Intake Visit Reasons: Leg pain. Around knee. Chief Complaint: Acute R Knee Pain [employer] Required: No Accompanied by: Self Is patient in pain?: No (no pain, but will later in the day) Allergies No Known Allergies Allergy (Unverified 10/03/24 08:40) Medications ?Medication ?Instructions ?Recorded ?Confirmed ?Type cholecalciferol (vitamin D3) 25 1,000 unit PO DAILY 10/03/24 History mcg (1,000 unit) capsule biotin 5 mg capsule 5 mg PO DAILY 07/03/2010/03 History apixaban 5 mg tablet (Eliquis) 5 mg PO BID 05/26/22 History lisinopril 40 mg tablet 40 mg PO QDAY 02/04/2410/03 History carvedilol 12.5 mg tablet (Coreg) 12.5 mg PO BID #180 tabs 08/23/24 10/03/24 Rx ibuprofen 600 mg tablet 600 mg PO TID #15 tabs 10/0310/03/24 Rx Have you fallen in the past year?: Yes (Early Feb. ) Nurse's Note: 58 year old F patient presents with R knee pain. Says the pain is mainly in the evenings after physical activity throughout the day. The pain is a 7/10 at night, sometimes leaves her in tears before bed. Says the pain is mostly medially toward the distal part of the knee, away from the knee cap. Has little to no edma around the knee or location of pain. Says there was no injury to cause the pain. [facility] Medical History Vitamin D deficiency Crohn disease Fatigue TMJ (temporomandibular joint syndrome) TATIANA (obstructive sleep apnea) Obesity Paroxysmal atrial fibrillation Hypertension Surgical History Hx of appendectomy History of intestinal surgery History of lung surgery Family History Grandmother Colon cancer Father Cancer skin Bone cancer Heart disease Social History Smoking Status: Never smoker alcohol intake: never substance use type: does not use what type of physical activity do you participate in: none HPI HPI Chief Complaint: Acute R Knee Pain Details: LINSEY JENSEN, is a 58 F who presents to the office today for right knee pain x 2weeks. She states it started without injury and continues to notice the pain throughout the day to the inner aspect of the knee and it is worse at night. Itis hard for her to be comfortable at night as that is when she notices that the pain is worse and it improves throughout the night and is better in the morning. She reports pain on the right inner aspect of the knee that feels deep and worse after activity. She denies any trauma or recent injury. She has been able to complete ADLs. She has taken ibuprofen twice over the last 2 weeks and also used ice on the knee and it seems to help somewhat. She states in the mornings it feels well but by evening it is very painful. Denies severe pain atthis time. Past medical history of Crohn's disease, fatigue, sleep apnea, A-fib, obesity, and hypertension. ROS Const Constitutional: No body ache, chills, excessive sweating, fatigue, fever(s), frequent falls, headache(s), snoring, weakness, weight change, sleep problems orchange in appetite Eyes Eyes: No blurry vision, change in vision, eye pain or Light sensitivity ENT ENT: No abnormal hearing, ear or mastoid pain, tinnitus, nasal congestion, headache(s), neck pain or sore throat Resp Respiratory: No cough, shortness of breath, snoring or wheezing Cardio Cardiology: No chest pain at rest, chest pain with exertion, excessive sweating,shortness of breath, lightheadedness, orthopnea or palpitations Gastro GI: No abdominal pain, change in bowel habits, constipation, cramping, diarrhea,nausea/dyspepsia or vomiting Genitourinary-Female: No burning urination, painful urination, urinary incontinence, urinary frequency, abnormal vaginal bleeding or pelvic pain Musc Musculoskeletal: Positive for other; No abnormal gait, joint pain, back pain, limited range of motion, neck pain, numbness or tingling Skin Skin: No dry skin, redness, lesions, itchy eyes, rash or wounds Neuro Neurology: No abnormal gait, abnormal hearing, abnormal speech, dizziness, weakness, frequent falls, headache(s), memory loss, numbness or tingling Psych Psychiatric: No anxiety, No change in appetite, No depression, No memory loss and No Thoughts of harming yourself/Others Endo Endocrine: No cold intolerance, excessive sweating, fatigue, flushing, heat intolerance, increased thirst/drinking, increased hunger or weight change Aller/Imm Allergy/Immunologic: No itchy eyes, seasonal allergy symptoms, hives or wheezing Glynn/Lymp Hematologic/Lymphatic: No easy bleeding, easy bruising, enlarged lymph nodes or other Exam Const General: cooperative, no acute distress, well groomed and well hydrated Nutritional Appearance: well nourished Orientation: alert and oriented x3 [facility] Head: normal to inspection Ears: hearing grossly normal bilaterally Nose: external nose normal and nares normal Face and sinus: normal facial exam Mouth: oral mucosae normal, lip normal and moist mucous membranes Eyes General: appearance normal, both eyes and all related structures Pupils: PERRL Neck Neck: normal visual inspection and trachea midline Chest Chest palpation & inspection: normal inspection of the chest Resp Effort & Inspection: normal respiratory effort, able to speak in complete sentences and symmetric chest movement GI Inspection: normal to inspection Musc Musculoskeletal: Yes joint tenderness (right knee medial), joint warmth and decreased range of motion; No joint redness or muscle weakness Other: Right knee without crepitus. Joint is stable. Pain with palpation medial right aspect of knee. Pain with internal rotation, some pain with flexion Skin General: no rashes or lesions noted Lesions: no lesions Rashes: no rashes Trauma: no lacerations or abrasions Wounds: no wounds Neuro General: patient alert, patient oriented x3 and deep tendon reflexes 2+ bilaterally Speech: speech normal Motor: muscle tone normal throughout Extrem General: normal to inspection and capillary refill normal Psych Appearance: grossly normal and well kempt Coding Level of Care Code Established Pt Off vis,est,level 3 Patient Type Established History Problem Focused Exam Problem Focused Medical Decision Making Low Complexity Diagnoses Knee pain, right M25.561 Time Spent (min) 30 Assessment and Plan Assessment and Plan (1) Knee pain, right: Status: Acute Plan: Knee pain to medial aspect. Symptoms consistent with MCL injury as differential. Will use ibuprofen 3 times daily x 5 days to help with inflammation. Discussed using prednisone with patient however due to side effects she was more inclined to use ibuprofen than prednisone. States she would preferto not use prednisone due to possible effects on heart rate and she will be wearing a heart monitor starting today through the next 2 weeks for cardiology. Discussed risks of increased bleeding with ibuprofen and blood thinners. Informed patient to take ibuprofen with meals to prevent GI upset and watch for any signs of bleeding. If pain continues we will consider neck step as x-ray. Patient has upcoming appointment with Dr. Agudelo and is agreeable with this plan at this time. Also discussed continuing icing the knee and using an [place]one wrap orbrace on the knee throughout the day. Medications: New ibuprofen Take with food 600 mg PO TID 15 tabs 0RF ibuprofen Take with food, monitor for signs of bleeding 600 mg PO TID 15 tabs 0RF Plan Details Follow Up: As needed (Has appointment coming up with Dr. Agudelo.) Clinical Quality Measures Falls Risk Screening/Assistive Devices Have you fallen in the past year?: Yes (Early ) 10/03/24 0919 <Electronically signed by Elaina OSORIOC> Date _ Elaina OSORIOC Cosigner Signature: Date (if applicable) CC: ~ [facility] Work Phone: 1(906) 139-631107-02-2025 Evaluation note* Diagnosis Onset Date Resolution Status Admit Date Paroxysmal atrial fibrillation acute August 23, 2024 1:52pm TMJ (temporomandibular joint syndrome) acute August 23, 2024 1 :52pm Hypertension chronic August 23 1:52pm TATIANA (obstructive sleep apnea) chroni c August 23, 2024 1:52pm [facility] Work Phone: 1(330) 768-836107-02-2025 Evaluation note* Diagnosis Onset Date Resolution Status Admit Date Paroxysmal atrial fibrillation acute August 23, 2024 1:52pm TMJ (temporomandibular joint syndrome) acute August 23, 2024 1 :52pm Hypertension chronic August 23 1:52pm TATIANA (obstructive sleep apnea) chroni c August 23, 2024 1:52pm Paroxysmal atrial fibrillation acute September 22, 2024 11:02am Hypertension chronic September 22, 2024 11:02am Knee pain, right acute September 222024 8:24am [facility] Work Phone: [phone] Telephone encounter Note* Telephone Encounter - Karissa Jose RN - 07/24/2024 2:50 PM EDT MATTHIEU 07-04-24 with EKG 01-02-25 07-13-24 BMP/creat 0.73 Notified patient that CBC and BMP are normal [id number] Miscellaneous Notes* Telephone Encounter - Karissa Jose RN - 07/24/2024 2:50 PM EDT MATTHIEU 07-04-24 with EKG 01-02-25 07-13-24 BMP/creat 0.73 Notified patient that CBC and BMP are normal * Telephone Encounter - Karissa Marina - 07/24/2024 2:46 PM EDT Pt requesting rf of flecainide Pt also would like the results of recent labs Pt last seen 07/04/24 fu 01/02/25. [id number] Telephone encounter Note* Telephone Encounter - Karissa Marina - 07/24/2024 2:46 PM EDT Pt requesting rf of flecainide Pt also would like the results of recent labs Pt last seen 07/04/24 fu 01/02/25. [id number] History of Present illness Narrative* Hay Sinclair MD - 07/04/2024 10:15 AM EDT [facility] Cardiology/Electrophysiology Follow Up Clinic Note Chief Complaint: Chief Complaint Patient presents with Atrial Fibrillation PAF Hypertension Sleep Apnea History of Present Illness: Linsey Jensen is a 58 y.o. female referred here in Jul 2022 for paroxysms of AFib. She went into A-fib for the first time in Mar 2022 during preparation for a colonoscopy. She was cardioverted unsuccessfully in the ED and then spontaneously converted later that evening. She was discharged on atenolol and Eliquis after a normal echo. She had a similar episode in April 2022 and she was started on flecainide 50 mg twice daily by Linsey Martinez. She presents today feeling well. She has not had any prolonged palpitation, dizziness, or syncope. She does have occasional episodes where she feels her heart fluttering. However, this only last a few minutes a couple times a week. She has not captured them on her Apple Watch. She otherwise denies chest pain, shortness of breath, or decrease in exercise tolerance. She is active though she does not exercise regularly. She was diagnosed with TATIANA by sleep study in May 2022 and now wears a CPAP mask. She reports blood pressures in the 140s to 150s systolic and 80s to 90s diastolic An EKG today shows normal sinus rhythm. An echo in Mar 2022 showed an LVEF of 74% with a normal LA size. Assessment and Plan: 1. Paroxysmal atrial fibrillation: She has had at least 2 documented episodes, and she has reportedprior palpitation. She has done well on flecainide and metoprolol. We will continue with the current management. 2. Hypertension: At the last visit I increased her lisinopril to 40 mg daily. Her BP seems to be running still a little high. I will start her on hydrochlorothiazide 12.5 mg daily. She will get bloodwork in 2 weeks. We spoke about diet and exercise. 3. TATIANA: She is wearing her CPAP mask. Past Medical History: Medical History[1] Past Surgical History Surgical History[2] Family History Family History[3] Social History Social History[4] Medications: Reviewed Allergies: Reviewed Review of Systems: All other systems were reviewed and are negative other than as noted in the HPI. Physical Examination: Vitals: Blood pressure (!) 140/90, pulse 63, height 5' 6 (1.676 m), weight 250 lb 9.6 oz (114 kg),last menstrual period 06/22/2022, SpO2 96%. Constitutional: Appears well kept and looks stated age; in NAD Psychiatric: A &O x3 Mood is pleasant; Affect is appropriate Musculoskeletal: Normocephalic; no joint swelling; gait steady; 5/5 muscle strength bilaterally in upper and lower extremities; no clubbing or cyanosis HEENT: Pupils are equal and round; Conjunctiva are not injected; Sclera are non- icteric; Airway andNares are patent; Ears without external abnormalities. Mucosa is pink; Dentition is normal Neck: Supple; No JVD or Bruits; No thyromegaly; No lymphadenopathy Respiratory: Lungs are clear with no rales or wheezes. Respiratory effort is normal and symmetricalbilaterally; Good air movement bilaterally Heart: RRR without ectopy; Nl S1 and S2 no mcrg Abdomen: NABS soft, non-tender, non-distended; no organomegaly; no obvious masses Extremities/Skin: No LE edema; Skin warm to touch and well perfused; skin discoloration is absent; Peripheral Pulses intact Neuro: sensation and motor function are grossly normal. Cranial Nerves are grossly intact Laboratory Tests: Lab Results Component Value Date WBC 5.0 07/13/2023 WBC 7.2 04/26/2022 WBC 8.2 04/11/2022 HGB 13.0 07/13/2023 HGB 14.8 04/26/2022 HGB 13.1 04/11/2022 HCT 39.2 07/13/2023 HCT 44.9 04/26/2022 HCT 38.2 04/11/2022 MCV 94.0 07/13/2023 MCV 93.3 04/26/2022 MCV 93.0 04/11/2022 PLT 289 07/13/2023 PLT 328 04/26/2022 PLT 257 04/11/2022 Lab Results Component Value Date NA 140 04/26/2022 NA 139 04/11/2022 NA 139 04/10/2022 K 3.7 04/26/2022 K 3.5 04/11/2022 K 3.9 04/10/2022 CL 108 (H) 04/26/2022 CL 108 (H) 04/11/2022 CL 107 04/10/2022 CO2 27 07/13/2023 CO2 23 04/26/2022 CO2 26 04/11/2022 BUN 15 07/13/2023 BUN 14 04/26/2022 BUN 9 04/11/2022 CREATININE 0.64 07/13/2023 CREATININE 0.63 04/26/2022 CREATININE 0.61 04/11/2022 Lab Results Component Value Date TSH 1.438 04/09/2022 Hay Sinclair MD DATE of SERVICE: 07/04/2024 [1] Past Medical History: Diagnosis Date Bronchitis Crohn disease (HCC) Hypertension Incisional hernia 02/2016 Dr. Velazquez-- [facility] Vitamin D deficiency [2] Past Surgical History: Procedure Laterality Date APPENDECTOMY 01/29/15 COLONOSCOPY 04/11/2022 COLONOSCOPY N/A 04/11/2022 Performed by Tiffani Felix MD at [facility] ENDOSCOPY INCISIONAL HERNIA REPAIR 03/25/2016 LAP w/ mesh-- Dr. Velazquez -- [facility] LUNG DECORTICATION Right 01-03-2015 LUNG SURGERY 2015 fluid [3] Family History Problem Relation Name Age of Onset No Known Problems Mother Heart disease Father Skin cancer Father No Known Problems Sister No Known Problems Brother No Known Problems Brother [4] Social History Tobacco Use Smoking status: Never Smokeless tobacco: Never Substance Use Topics Alcohol use: No Alcohol/week: 0.0 standard drinks of alcohol Drug use: No documented in this [facility]05-13-2025 Instructions* Patient Instructions* Hay Sinclair MD - 07/04/2024 10:15 AM EDT Check your Blood Work in 10-14 days documented in this [facility]05-06-2025 Telephone encounter Note* Telephone Encounter - Karissa Marina - 06/27/2024 2:04 PM EDT Left detailed message requesting a call back re labs. [id number] Miscellaneous Notes* Telephone Encounter - Karissa Marina - 06/27/2024 2:04 PM EDT Left detailed message requesting a call back re labs. * Telephone Encounter - Karissa Jose RN - 06/27/2024 1:46 PM EDT MATTHIEU 01-04-24 07-04-24 07-13-23 BMP/creat 0.64 * Telephone Encounter - Karissa Marina - 06/27/2024 1:28 PM EDT Pt requesting lisinopril 40 mg LS 03/05/23 fu 07/04/24 [email or web address] pharmacy confirmed documented in this [facility]05-06-2025 Telephone encounter Note* Telephone Encounter - Karissa Jose RN - 06/27/2024 1:46 PM EDT MATTHIEU 01-04-24 07-04-24 07-13-23 BMP/creat 0.64 [facility] [id number] Telephone encounter Note* Telephone Encounter - Karissa Marina - 06/27/2024 1:28 PM EDT Pt requesting lisinopril 40 mg LS 03/05/23 fu 07/04/24 [facility] [[email or web address] pharmacy [id number] Telephone encounter Note* Telephone Encounter - Nika Wright RN - 01/24/2024 8:21 AM EST MATTHIEU-01/15 OC CBC-07/15 BMP-07/15 CR-0.64 [place] [id number] Miscellaneous Notes* Telephone Encounter - Nika Wright RN - 01/24/2024 8:21 AM EST MATTHIEU-01/15 OC CBC-07/15 BMP-07/15 CR-0.64 [facility] [id number] Telephone encounter Note* Telephone Encounter - Caryl Reddy RN - 01/21/2024 10:23 AM EST Labs and EKG acceptable for refill flecainide and lopressor [id number] Miscellaneous Notes* Telephone Encounter - Caryl Reddy RN - 01/21/2024 10:23 AM EST Labs and EKG acceptable for refill flecainide and lopressor * Telephone Encounter - Karissa Marina - 01/21/2024 10:02 AM EST Pt requesting eliquis flecainide and metoprolol Last seen 01/04/24, fu 07/05/23, labs done 07/13/23 Pharmacy confirmed documented in this [facility]11-29-2024 Telephone encounter Note* Telephone Encounter - Karissa Marina - 01/21/2024 10:02 AM EST Pt requesting eliquis flecainide and metoprolol Last seen 01/04/24, fu 07/05/23, labs done 07/13/23 [id number] History of Present illness Narrative* Hay Sinclair MD - 01/04/2024 10:45 AM EST [facility] Cardiology/Electrophysiology Follow Up Clinic Note Chief Complaint: Chief Complaint Patient presents with Atrial Fibrillation PAF Hypertension Sleep Apnea History of Present Illness: Linsey Jensen is a 58 y.o. female referred here in Jul 2022 for paroxysms of AFib. She went into A-fib for the first time in Mar 2022 during preparation for a colonoscopy. She was cardioverted unsuccessfully in the ED and then spontaneously converted later that evening. She was discharged on atenolol and Eliquis after a normal echo. She had a similar episode in April 2022 and she was started on flecainide 50 mg twice daily by Linsey Martinez. She presents today feeling well. She has not had further episodes of palpitation, dizziness, or syncope. Today she tells me that she has occasional episodes where she feels her heart racing. However,she is vague about the duration and the frequency of these. She has not captured them on her [employer]. She otherwise denies chest pain, shortness of breath, or decrease in exercise tolerance. She is active though she does not exercise regularly. She was diagnosed with TATIANA by sleep study in May2022 and now wears a CPAP mask. She reports blood pressures in the 140s to 150s systolic and 80s to90s diastolic An EKG today shows normal sinus rhythm. An echo in Mar 2022 showed an LVEF of 74% with a normal LA size. Assessment and Plan: 1. Paroxysmal atrial fibrillation: She has had at least 2 documented episodes, and she has reportedprior palpitation. She has done well on flecainide and metoprolol. We will continue with the current management. 2. Hypertension: At the last visit I increased her lisinopril to 20 mg daily. Her BP seems to be running still a little high. I will increase the lisinopril to 40 mg daily. She may need a thiazide diuretic. We spoke at length about diet and exercise. 3. TATIANA: She is wearing her CPAP mask. Past Medical History: Past Medical History: Diagnosis Date Bronchitis Crohn disease (HCC) Hypertension Incisional hernia 02/2016 Dr. Velazquez-- [facility] Vitamin D deficiency Past Surgical History Past Surgical History: Procedure Laterality Date APPENDECTOMY 01/29/15 COLONOSCOPY 04/11/2022 COLONOSCOPY N/A 04/11/2022 Performed by Tiffani Felix MD at [facility] ENDOSCOPY INCISIONAL HERNIA REPAIR 03/25/2016 LAP w/ mesh-- Dr. Velazquez -- [facility] LUNG DECORTICATION Right 01-03-2015 LUNG SURGERY 2015 fluid Family History Family History Problem Relation Name Age of Onset No Known Problems Mother Heart disease Father Skin cancer Father No Known Problems Sister No Known Problems Brother No Known Problems Brother Social History Social History Tobacco Use Smoking status: Never Smokeless tobacco: Never Substance Use Topics Alcohol use: No Alcohol/week: 0.0 standard drinks of alcohol Drug use: No Medications: Reviewed Allergies: Reviewed Review of Systems: All other systems were reviewed and are negative other than as noted in the HPI. Physical Examination: Vitals: Blood pressure (!) 140/88, pulse 61, height 5' 6 (1.676 m), weight 238 lb (108 kg), SpO2 99%. Constitutional: Appears well kept and looks stated age; in NAD Psychiatric: A &O x3 Mood is pleasant; Affect is appropriate Musculoskeletal: Normocephalic; no joint swelling; gait steady; 5/5 muscle strength bilaterally in upper and lower extremities; no clubbing or cyanosis HEENT: Pupils are equal and round; Conjunctiva are not injected; Sclera are non- icteric; Airway andNares are patent; Ears without external abnormalities. Mucosa is pink; Dentition is normal Neck: Supple; No JVD or Bruits; No thyromegaly; No lymphadenopathy Respiratory: Lungs are clear with no rales or wheezes. Respiratory effort is normal and symmetricalbilaterally; Good air movement bilaterally Heart: RRR without ectopy; Nl S1 and S2 no mcrg Abdomen: NABS soft, non-tender, non-distended; no organomegaly; no obvious masses Extremities/Skin: No LE edema; Skin warm to touch and well perfused; skin discoloration is absent; Peripheral Pulses intact Neuro: sensation and motor function are grossly normal. Cranial Nerves are grossly intact Laboratory Tests: Lab Results Component Value Date WBC 5.0 07/13/2023 WBC 7.2 04/26/2022 WBC 8.2 04/11/2022 HGB 13.0 07/13/2023 HGB 14.8 04/26/2022 HGB 13.1 04/11/2022 HCT 39.2 07/13/2023 HCT 44.9 04/26/2022 HCT 38.2 04/11/2022 MCV 94.0 07/13/2023 MCV 93.3 04/26/2022 MCV 93.0 04/11/2022 PLT 289 07/13/2023 PLT 328 04/26/2022 PLT 257 04/11/2022 Lab Results Component Value Date NA 140 04/26/2022 NA 139 04/11/2022 NA 139 04/10/2022 K 3.7 04/26/2022 K 3.5 04/11/2022 K 3.9 04/10/2022 CL 108 (H) 04/26/2022 CL 108 (H) 04/11/2022 CL 107 04/10/2022 CO2 27 07/13/2023 CO2 23 04/26/2022 CO2 26 04/11/2022 BUN 15 07/13/2023 BUN 14 04/26/2022 BUN 9 04/11/2022 CREATININE 0.64 07/13/2023 CREATININE 0.63 04/26/2022 CREATININE 0.61 04/11/2022 Lab Results Component Value Date TSH 1.438 04/09/2022 Hay Sinclair MD DATE of SERVICE: 01/04/2024 documented in this [facility]05-21-2024 History of Present illness Narrative* Hay Sinclair MD - 07/13/2023 9:45 AM EDT [facility] Cardiology/Electrophysiology Follow Up Clinic Note Chief Complaint: Chief Complaint Patient presents with Atrial Fibrillation Persistent Hypertension Sleep Apnea History of Present Illness: Linsey Jensen is a 57 y.o. female referred herein Jul 2022 for paroxysms of AFib. She went into A-fib for the first time in Mar 2022 during preparation for a colonoscopy. She was cardioverted unsuccessfully in the ED and then spontaneously converted later that evening. She was discharged on atenolol and Eliquis after a normal echo. She had a similar episode in April 2022 and she was started on flecainide 50 mg twice daily by Linsey Martinez. She presents today feeling well. She has not had further episodes of palpitation, dizziness, or syncope. She otherwise denies chest pain, shortness of breath, or decrease in exercise tolerance. She is active though she does not exercise regularly. She was diagnosed with TATIANA by sleep study in May 2022 and now wears a CPAP mask. She and her have an Apple watch and she has not noticed any A-fib. She was apparently told by someone that biotin can cause heart attacks and she stopped takingit. An EKG today shows normal sinus rhythm. An echo in Mar 2022 showed an LVEF of 74% with a normal LA size. Assessment and Plan: 1. Paroxysmal atrial fibrillation: She has had at least 2 documented episodes, and she has reportedprior palpitation. She has done well on flecainide and metoprolol. We will continue with the current management. She can take biotin if she wants to. I reassured her. I will get a CBC and a Chem-7 asshe has not had any blood work done in over a year. 2. Hypertension: At the last visit I increased her lisinopril to 10 mg daily. She has not measured her blood pressure at home much. She promised that she will do that in the next few weeks and call me if they run above 140. We will increase the lisinopril further. 3. TATIANA: Recently diagnosed. At the last visit we spoke about the fact that this is a risk factor for the recurrence of atrial fibrillation. Exercise and diet were discussed. Past Medical History: Past Medical History: Diagnosis Date Bronchitis Crohn disease (HCC) Hypertension Incisional hernia 02/2016 Dr. Velazquez-- [facility] Vitamin D deficiency Past Surgical History Past Surgical History: Procedure Laterality Date APPENDECTOMY 01/29/15 COLONOSCOPY 04/11/2022 COLONOSCOPY N/A 04/11/2022 Performed by Tiffani Felix MD at [facility] ENDOSCOPY INCISIONAL HERNIA REPAIR 03/25/2016 LAP w/ mesh-- Dr. Velazquez -- [facility] LUNG DECORTICATION Right 01-03-2015 LUNG SURGERY 2015 fluid Family History Family History Problem Relation Name Age of Onset No Known Problems Mother Heart disease Father Skin cancer Father No Known Problems Sister No Known Problems Brother No Known Problems Brother Social History Social History Tobacco Use Smoking status: Never Smokeless tobacco: Never Substance Use Topics Alcohol use: No Alcohol/week: 0.0 standard drinks of alcohol Drug use: No Medications: Reviewed Allergies: Reviewed Review of Systems: All other systems were reviewed and are negative other than as noted in the HPI. Physical Examination: Vitals: Blood pressure 138/86, pulse 65, height 5' 6 (1.676 m), weight 240 lb 3.2 oz (109 kg), SpO2 99%. Constitutional: Appears well kept and looks stated age; in NAD Psychiatric: A &O x3 Mood is pleasant; Affect is appropriate Musculoskeletal: Normocephalic; no joint swelling; gait steady; 5/5 muscle strength bilaterally in upper and lower extremities; no clubbing or cyanosis HEENT: Pupils are equal and round; Conjunctiva are not injected; Sclera are non- icteric; Airway andNares are patent; Ears without external abnormalities. Mucosa is pink; Dentition is normal Neck: Supple; No JVD or Bruits; No thyromegaly; No lymphadenopathy Respiratory: Lungs are clear with no rales or wheezes. Respiratory effort is normal and symmetricalbilaterally; Good air movement bilaterally Heart: RRR without ectopy; Nl S1 and S2 no mcrg Abdomen: NABS soft, non-tender, non-distended; no organomegaly; no obvious masses Extremities/Skin: No LE edema; Skin warm to touch and well perfused; skin discoloration is absent; Peripheral Pulses intact Neuro: sensation and motor function are grossly normal. Cranial Nerves are grossly intact Laboratory Tests: Lab Results Component Value Date WBC 7.2 04/26/2022 WBC 8.2 04/11/2022 WBC 10.0 04/10/2022 HGB 14.8 04/26/2022 HGB 13.1 04/11/2022 HGB 13.6 04/10/2022 HCT 44.9 04/26/2022 HCT 38.2 04/11/2022 HCT 40.2 04/10/2022 MCV 93.3 04/26/2022 MCV 93.0 04/11/2022 MCV 93.3 04/10/2022 PLT 328 04/26/2022 PLT 257 04/11/2022 PLT 292 04/10/2022 Lab Results Component Value Date NA 140 04/26/2022 NA 139 04/11/2022 NA 139 04/10/2022 K 3.7 04/26/2022 K 3.5 04/11/2022 K 3.9 04/10/2022 CL 108 (H) 04/26/2022 CL 108 (H) 04/11/2022 CL 107 04/10/2022 CO2 23 04/26/2022 CO2 26 04/11/2022 CO2 24 04/10/2022 BUN 14 04/26/2022 BUN 9 04/11/2022 BUN 11 04/10/2022 CREATININE 0.63 04/26/2022 CREATININE 0.61 04/11/2022 CREATININE 0.61 04/10/2022 Lab Results Component Value Date TSH 1.438 04/09/2022 Radiology: Reviewed Hay Sinclair MD DATE of SERVICE: 07/13/2023 documented in this [facility]11-21-2023 History of Present illness Narrative* Hay Sinclair MD - 01/12/2023 10:30 AM EST [facility] [place] Card[facility]/Electrophysiology Follow-Up clinic Note Chief Complaint: Chief Complaint Patient presents with Atrial Fibrillation Persistent Hypertension Sleep Apnea History of Present Illness: Linsey Jensen is a 57 y.o. female referred here for paroxysms of AFib. She went into A-fib for thefirst time in Mar 2022 during preparation for a colonoscopy. She was cardioverted unsuccessfully inthe ED and then spontaneously converted later that evening. She was discharged on atenolol and Eliquis after a normal echo. She had a similar episode in April 2022 and she was started on flecainide 50 mg twice daily by Linsey Martinez. She presents today feeling well. She has not had no further episodes of palpitation, dizziness, or syncope. She otherwise denies chest pain, shortness of breath, or decrease in exercise tolerance. She is active though she does not exercise regularly. She feels tired at the end of the day. She was diagnosed with TATIANA by sleep study in May 2022 and now wears a CPAP mask. She and her have an Apple watch and she has not noticed any A-fib. Today she appears more anxious about things. An EKG today shows normal sinus rhythm. An echo in March showed an LVEF of 74% with a normal LA size. Assessment and Plan: 1. Paroxysmal atrial fibrillation: She has had at least 2 documented episodes, and she has reportedprior palpitation. She has done well on flecainide and metoprolol. We will continue with the current management. 2. Hypertension: Her BP is running in the 140s over high 80s. I will increase the Lisinopril to 10 mg daily. 3. TATIANA: Recently diagnosed. At the last visit we spoke about the fact that this is a risk factor for the recurrence of atrial fibrillation. Exercise and diet were discussed. Past Medical History: Past Medical History: Diagnosis Date Bronchitis Crohn disease (HCC) Hypertension Incisional hernia 02/2016 Dr. Velazquez-- [facility] Vitamin D deficiency Past Surgical History Past Surgical History: Procedure Laterality Date APPENDECTOMY 01/29/15 COLONOSCOPY 04/11/2022 COLONOSCOPY N/A 04/11/2022 Performed by Tiffani Felix MD at [facility] ENDOSCOPY INCISIONAL HERNIA REPAIR 03/25/2016 LAP w/ mesh-- Dr. Velazquez -- [facility] LUNG DECORTICATION Right 01-03-2015 LUNG SURGERY 2015 fluid Family History Family History Problem Relation Name Age of Onset Heart disease Father No Known Problems Brother No Known Problems Brother No Known Problems Sister No Known Problems Mother Cancer Father skin Social History Social History Tobacco Use Smoking status: Never Smokeless tobacco: Never Substance Use Topics Alcohol use: No Alcohol/week: 0.0 standard drinks of alcohol Drug use: No Medications: Reviewed Allergies: Reviewed Review of Systems: All other systems were reviewed and are negative other than as noted in the HPI. Physical Examination: Vitals: Blood pressure (!) 140/80, pulse 61, height 5' 7 (1.702 m), weight 242 lb (110 kg), SpO2 100%. Constitutional: Appears well kept and looks stated age; in NAD Psychiatric: A &O x3 Mood is pleasant; Affect is appropriate Musculoskeletal: Normocephalic; no joint swelling; gait steady; 5/5 muscle strength bilaterally in upper and lower extremities; no clubbing or cyanosis HEENT: Pupils are equal and round; Conjunctiva are not injected; Sclera are non- icteric; Airway andNares are patent; Ears without external abnormalities. Mucosa is pink; Dentition is normal Neck: Supple; No JVD or Bruits; No thyromegaly; No lymphadenopathy Respiratory: Lungs are clear with no rales or wheezes. Respiratory effort is normal and symmetricalbilaterally; Good air movement bilaterally Heart: RRR without ectopy; Nl S1 and S2 no mcrg Abdomen: NABS soft, non-tender, non-distended; no organomegaly; no obvious masses Extremities/Skin: No LE edema; Skin warm to touch and well perfused; skin discoloration is absent; Peripheral Pulses intact Neuro: sensation and motor function are grossly normal. Cranial Nerves are grossly intact Laboratory Tests: Lab Results Component Value Date WBC 7.2 04/26/2022 WBC 8.2 04/11/2022 WBC 10.0 04/10/2022 HGB 14.8 04/26/2022 HGB 13.1 04/11/2022 HGB 13.6 04/10/2022 HCT 44.9 04/26/2022 HCT 38.2 04/11/2022 HCT 40.2 04/10/2022 MCV 93.3 04/26/2022 MCV 93.0 04/11/2022 MCV 93.3 04/10/2022 PLT 328 04/26/2022 PLT 257 04/11/2022 PLT 292 04/10/2022 Lab Results Component Value Date NA 140 04/26/2022 NA 139 04/11/2022 NA 139 04/10/2022 K 3.7 04/26/2022 K 3.5 04/11/2022 K 3.9 04/10/2022 CL 108 (H) 04/26/2022 CL 108 (H) 04/11/2022 CL 107 04/10/2022 CO2 23 04/26/2022 CO2 26 04/11/2022 CO2 24 04/10/2022 BUN 14 04/26/2022 BUN 9 04/11/2022 BUN 11 04/10/2022 CREATININE 0.63 04/26/2022 CREATININE 0.61 04/11/2022 CREATININE 0.61 04/10/2022 Lab Results Component Value Date TSH 1.438 04/09/2022 Radiology: Reviewed Hay Sinclair MD DATE of SERVICE: 01/12/2023 documented in this [facility]06-14-2023 History of Present illness Narrative* Hay Sinclair MD - 08/05/2022 11:15 AM EDT [facility] Card[facility]/Electrophysiology New Patient Clinic Note Chief Complaint: Chief Complaint Patient presents with Atrial Fibrillation Persistent Hypertension Sleep Apnea Cough History of Present Illness: Linsey Jensen is a 56 y.o. female referred here for management of her paroxysms of atrial fibrillation. She went into A-fib for the first time in March 2022 during preparation for a colonoscopy. She was cardioverted unsuccessfully in the ED and then spontaneously converted later that evening. She was discharged on atenolol and Eliquis after a normal echo. She had a similar episode in April and she was started on flecainide 50 mg twice daily by Linsey Martinez. She presents today feeling well. She has not had no further episodes of palpitation, dizziness, or syncope. She otherwise denies chest pain, shortness of breath, or decrease in exercise tolerance. She is active though she does not exercise regularly. She was diagnosed with TATIANA by sleep study in May 2022. She and her have an Apple watch and she has not noticed any A-fib. An EKG today shows normal sinus rhythm. An echo in March showed an LVEF of 74% with a normal LA size. Assessment and Plan: 1. Paroxysmal atrial fibrillation: She has had at least 2 documented episodes, and she has reportedprior palpitation. She seems to have done well on flecainide and metoprolol. We will continue with the current management. 2. Hypertension: Well-controlled on the current medications, after the addition of lisinopril by her PCP. 3. TATIANA: Recently diagnosed. We spoke about the fact that this is a risk factor for the recurrence of atrial fibrillation. Exercise and diet were discussed. Past Medical History: Past Medical History: Diagnosis Date Bronchitis Crohn disease (HCC) Hypertension Incisional hernia 02/2016 Dr. Velazquez-- [facility] Vitamin D deficiency Past Surgical History Past Surgical History: Procedure Laterality Date APPENDECTOMY 01/29/15 COLONOSCOPY 04/11/2022 COLONOSCOPY N/A 04/11/2022 Performed by Tiffani Felix MD at [facility] ENDOSCOPY INCISIONAL HERNIA REPAIR 03/25/2016 LAP w/ mesh-- Dr. Velazquez -- [facility] LUNG DECORTICATION Right 01-03-2015 LUNG SURGERY 2015 fluid Family History Family History Problem Relation Name Age of Onset Heart disease Father No Known Problems Brother No Known Problems Brother No Known Problems Sister No Known Problems Mother Cancer Father skin Social History Social History Tobacco Use Smoking status: Never Smokeless tobacco: Never Substance Use Topics Alcohol use: No Alcohol/week: 0.0 standard drinks of alcohol Drug use: No Medications: Reviewed Allergies: Reviewed Review of Systems: All other systems were reviewed and are negative other than as noted in the HPI. Physical Examination: Vitals: Blood pressure 122/80, pulse 64, height 5' 6 (1.676 m), weight 237 lb (108 kg), SpO2 99 %. Constitutional: Appears well kept and looks stated age; in NAD Psychiatric: A &O x3 Mood is pleasant; Affect is appropriate Musculoskeletal: Normocephalic; no joint swelling; gait steady; 5/5 muscle strength bilaterally in upper and lower extremities; no clubbing or cyanosis HEENT: Pupils are equal and round; Conjunctiva are not injected; Sclera are non- icteric; Airway andNares are patent; Ears without external abnormalities. Mucosa is pink; Dentition is normal Neck: Supple; No JVD or Bruits; No thyromegaly; No lymphadenopathy Respiratory: Lungs are clear with no rales or wheezes. Respiratory effort is normal and symmetricalbilaterally; Good air movement bilaterally Heart: RRR without ectopy; Nl S1 and S2 no mcrg Abdomen: NABS soft, non-tender, non-distended; no organomegaly; no obvious masses Extremities/Skin: No LE edema; Skin warm to touch and well perfused; skin discoloration is absent; Peripheral Pulses intact Neuro: sensation and motor function are grossly normal. Cranial Nerves are grossly intact Laboratory Tests: Lab Results Component Value Date WBC 7.2 04/26/2022 WBC 8.2 04/11/2022 WBC 10.0 04/10/2022 HGB 14.8 04/26/2022 HGB 13.1 04/11/2022 HGB 13.6 04/10/2022 HCT 44.9 04/26/2022 HCT 38.2 04/11/2022 HCT 40.2 04/10/2022 MCV 93.3 04/26/2022 MCV 93.0 04/11/2022 MCV 93.3 04/10/2022 PLT 328 04/26/2022 PLT 257 04/11/2022 PLT 292 04/10/2022 Lab Results Component Value Date NA 140 04/26/2022 NA 139 04/11/2022 NA 139 04/10/2022 K 3.7 04/26/2022 K 3.5 04/11/2022 K 3.9 04/10/2022 CL 108 (H) 04/26/2022 CL 108 (H) 04/11/2022 CL 107 04/10/2022 CO2 23 04/26/2022 CO2 26 04/11/2022 CO2 24 04/10/2022 BUN 14 04/26/2022 BUN 9 04/11/2022 BUN 11 04/10/2022 CREATININE 0.63 04/26/2022 CREATININE 0.61 04/11/2022 CREATININE 0.61 04/10/2022 Lab Results Component Value Date TSH 1.438 04/09/2022 Radiology: Reviewed Hay Sinclair MD DATE of SERVICE: 08/05/2022 documented in this [facility]03-14-2023 History of Present illness Narrative* Linsey Garza, ABELARDO - PERSONAL FINANCIAL COUNSELOR - 05/05/2022 10:15 AM EDT Call to pt regarding EKG, NSR with normal QRS width, also reviewed by Dr Sinclair. Her BP remainselevated. Will start Lisinopril 5mg/d and have her monitor her BP if it remains elevated will titrate the lisinopril. Risks benefits and alternative discussed with patient. documented in this [facility]03-08-2023 Evaluation + Plan note* Assessment & Plan Note - ABELARDO Coleman CNP - 04/29/2022 4:36 PM EST Associated Problem(s): Hypertension Her blood pressure is elevated today but she is very anxious. She is going to start monitoring her blood pressure at home and keep a log. I have counseled her on a low-sodium diet and encouraged her to exercise. [id number] Miscellaneous Notes* Assessment & Plan Note - ABELARDO Coleman CNP - 04/29/2022 4:36 PM ESTAssociated Problem(s): Hypertension Her blood pressure is elevated today but she is very anxious. She is going to start monitoring her blood pressure at home and keep a log. I have counseled her on a low-sodium diet and encouraged her to exercise. * Assessment & Plan Note - ABELARDO Coleman CNP - 04/29/2022 4:33 PM EST Associated Problem(s): Atrial fibrillation, unspecified type (HCC) She has had a second occurrence this past Wednesday which she was seen in the ER and again converted after being given IV metoprolol. She was weak and short of breath with this episode unlike her first episode she was asymptomatic. She is compliant with her metoprolol as well as her Eliquis. We discussed treatment modalities including antiarrhythmic drug therapy as well as catheter ablation. She would like to try medication route first and might consider ablation in the future but for now she is not interested. I have written a prescription for flecainide 50 mg every 12 hours and she will start that tonight. She will have an EKG on Wednesday at 10 AM in [place]. She will continue metoprolol tartrate 50 mg twice daily. She will also continue Eliquis 5 mg twice daily for a [id number] VASc score of 2 for gender and HTN. I have referred her to [facility] for evaluation of sleep apnea (she lives in [place]) I have encouraged her to continue to try to lose weight. Her has an Apple Watch and he will continue to check her pulse from time to time. documented in this [facility]03-08-2023 Evaluation + Plan note* Assessment & Plan Note - ABELARDO Coleman CNP - 04/29/2022 4:33 PM EST Associated Problem(s): Atrial fibrillation, unspecified type (HCC) She has had a second occurrence this past Wednesday which she was seen in the ER and again converted after being given IV metoprolol. She was weak and short of breath with this episode unlike her first episode she was asymptomatic. She is compliant with her metoprolol as well as her Eliquis. We discussed treatment modalities including antiarrhythmic drug therapy as well as catheter ablation. She would like to try medication route first and might consider ablation in the future but for now she is not interested. I have written a prescription for flecainide 50 mg every 12 hours and she will start that tonight. She will have an EKG on Wednesday at 10 AM in [place]. She will continue metoprolol tartrate 50 mg twice daily. She will also continue Eliquis 5 mg twice daily for a [id number] VASc score of 2 for gender and HTN. I have referred her to [facility] for evaluation of sleep apnea (she lives in [place]) I have encouraged her to continue to try to lose weight. Her has an Apple Watch and he will continue to check her pulse from time to time. [id number] History of Present illness Narrative* Linsey Garza, POWDERED SUGAR SUPERVISOR - PERSONAL FINANCIAL COUNSELOR - 04/29/2022 3:30 PM EST Images from the original note were not included. [facility] [address] [id number] Dept: [phone] Dept Loc: [phone] Visit type: Established : 1965 Reason for Visit: Follow-up and Atrial Fibrillation (ER follow up Atrial Fibrillation) Assessment and Plan 1. Atrial fibrillation, unspecified type (HCC) Assessment & Plan: She has had a second occurrence this past Wednesday which she was seen in the ER and again converted after being given IV metoprolol. She was weak and short of breath with this episode unlike her first episode she was asymptomatic. She is compliant with her metoprolol as well as her Eliquis. We discussed treatment modalities including antiarrhythmic drug therapy as well as catheter ablation. She would like to try medication route first and might consider ablation in the future but for now she is not interested. I have written a prescription for flecainide 50 mg every 12 hours and she will start that tonight. She will have an EKG on Wednesday at 10 AM in [place]. She will continue metoprolol tartrate 50 mg twice daily. She will also continue Eliquis 5 mg twice daily for a [id number] VASc score of 2 for gender and HTN. I have referred her to [facility] for evaluation of sleep apnea (she lives in [place]) I have encouraged her to continue to try to lose weight. Her has an Apple Watch and he will continue to check her pulse from time to time. Orders: - ECG 12 lead - CLINIC PERFORMED - External referral to Pulmonology 2. Primary hypertension Assessment & Plan: Her blood pressure is elevated today but she is very anxious. She is going to start monitoring her blood pressure at home and keep a log. I have counseled her on a low-sodium diet and encouraged her to exercise. Follow up in about 3 months (around 07/30/2022), or EKG in [place] with [facility] then 3 months with [facility] in [place]. Subjective Linsey Jensen a 56 .y female who was undergoing a follow up colonoscopy and reportedly during induction, patient was noted to go into A fib RVR with elevated rates of 150-170bpm. She reported no chestpain, no shortness of breath, no dizziness or lightheadedness. She simply noted some palpitations that was not concerning for her. She was emergently taken to the ED at [facility], where she was attempted to be cardioverted after Etomidate and Fentianyl administration 3 times unsuccessfully. She was givenmetoprolol tartrate PO 100mg (at 8pm) and multiple IV administrations of 5mg without response around 5-6pm (6 doses total), with improved HR response but remained in a fib. She spontaenously cardioverted at 1140pm and has been in sinus rhythm ever since. She was discharged home and is following up today. Echo done 04/11/22revealed: Interpretation Summary Left Ventricle: Left ventricle size is normal. Normal wall thickness. Normal left ventricular systolic function. EF by 2D Simpsons Biplane is 74%. Normal wall motion. Right Ventricle: Right ventricle size is normal. Normal systolic function. IVC/SVC: IVC was not well visualized. IVC diameter is normal and decreases less than 50% during inspiration; therefore the estimated right atrial pressure is intermediate (~8 mmHg). No significant valvular abnormalities. Linsey Jensen presents today for evaluation with her . She states that she did not feel well on Wednesday, April 24 and on Wednesday she was very weak and short of breath therefore she checked herpulse on her 's Apple Watch and noted that her heart rate was approximately 150 bpm and she came to ER. She states they wanted to cardiovert her but she insisted that they try medicine and shefinally converted after 3 rounds of metoprolol. She denied any symptoms with her first episode 2 weeks ago at the time of her colonoscopy. She states over the years she may have had a palpitation or 2 but nothing that concerned her. She denied chest pain, palpitations, dizziness, syncope, or near syncope. She states she has been compliant with her metoprolol and her Eliquis and denies melena hematochezia or hematuria. She states that she has a history of epistaxis but has not had any issues since starting the Eliquis. Her is concerned that she does snore at night. She denies any history of sleep disturbances or work-up for that. Since her first episode she has been trying to watch what she eats to lose weight. She states that she is very active. Review of Systems Constitutional: Negative for chills, diaphoresis and fever. HENT: Negative for nosebleeds. Eyes: Negative for visual disturbance. Respiratory: Positive for shortness of breath. Negative for chest tightness and wheezing. Cardiovascular: Negative for chest pain, palpitations and leg swelling. Gastrointestinal: Negative for abdominal pain, blood in stool and diarrhea. Genitourinary: Negative for hematuria. Musculoskeletal: Negative for myalgias. Neurological: Positive for weakness. Negative for dizziness and syncope. Hematological: Does not bruise/bleed easily. No Known Allergies Outpatient Medications Prior to Visit Medication Sig Dispense Refill apixaban (Eliquis) 5 MG tablet Take 1 tablet (5 mg) by mouth 2 times daily. 60 tablet 2 biotin 5000 MCG capsule Take by mouth daily. cholecalciferol (Vitamin D-3) 25 MCG (1000 UT) capsule Take 3,000 Units by mouth daily. cinnamon 500 MG capsule Take 500 mg by mouth daily. metoprolol tartrate (Lopressor) 50 MG tablet Take 1 tablet (50 mg) by mouth 2 times daily. 60 tablet 2 Sutab 3628-086-521 MG tablet No facility-administered medications prior to visit. Past Medical History: Diagnosis Date Bronchitis Crohn disease (HCC) Hypertension Incisional hernia 02/2016 Dr. Velazquez-- [facility] Vitamin D deficiency Social History Tobacco Use Smoking status: Never Smokeless tobacco: Never Substance Use Topics Alcohol use: No Alcohol/week: 0.0 standard drinks Past Surgical History: Procedure Laterality Date APPENDECTOMY 01/29/15 COLONOSCOPY 04/11/2022 COLONOSCOPY N/A 04/11/2022 Performed by Tiffani Felix MD at [facility] ENDOSCOPY INCISIONAL HERNIA REPAIR 03/25/2016 LAP w/ mesh-- Dr. Velazquez -- [facility] LUNG DECORTICATION Right 01-03-2015 LUNG SURGERY 2015 fluid Family History Problem Relation Name Age of Onset Heart disease Father No Known Problems Brother No Known Problems Brother No Known Problems Sister No Known Problems Mother Cancer Father skin Objective Vitals: 04/29/22 1522 BP: (!) 150/98 BP Location: Left arm Patient Position: Sitting BP Cuff Size: Large adult Pulse: 90 SpO2: 98% Weight: 232 lb (105 kg) Physical Exam Constitutional: General: She is not in acute distress. Appearance: She is not diaphoretic. HENT: Head: Normocephalic. Nose: Nose normal. Mouth/Throat: Mouth: Mucous membranes are moist. Pharynx: No oropharyngeal exudate. Eyes: General: No scleral icterus. Right eye: No discharge. Left eye: No discharge. Neck: Thyroid: No thyromegaly. Vascular: No carotid bruit or JVD. Cardiovascular: Rate and Rhythm: Normal rate and regular rhythm. Pulses: Normal pulses. Heart sounds: Normal heart sounds. Pulmonary: Effort: Pulmonary effort is normal. Breath sounds: Normal breath sounds. Abdominal: General: Bowel sounds are normal. There is no distension. Palpations: There is no hepatomegaly. Tenderness: There is no abdominal tenderness. Musculoskeletal: General: Normal range of motion. Cervical back: Normal range of motion. Right lower leg: No edema. Left lower leg: No edema. Skin: General: Skin is warm and dry. Neurological: Mental Status: She is oriented to person, place, and time. Psychiatric: Mood and Affect: Mood normal. Behavior: Behavior normal. Data Reviewed and Summarized EF BP Date Value Ref Range Status 04/11/2022 74 55 - 100 % Final Review of tests/labs done/ordered within my specialty: EKG in office: Her EKG reveals a normal sinus rhythm at 90 bpm. Her pain now was a new A-fib for some so follow-up will get I just looked at the old Review of tests/labs done/ordered outside my specialty: Independent interpretation of tests: ABELARDO Coleman CNP documented in this [facility]03-08-2023 Instructions* Patient Instructions* ABELARDO Coleman CNP - 04/29/2022 3:30 PM EST Start Flecainide 50mg every 12 hours Sleep study referral made EKG in [place] office Wednesday at 10:00am documented in this [facility]03-05-2023 Hospital Discharge instructions* Discharge Instructions* Gaudencio Hathaway MD - 04/26/2022 12:11 PM EST - You were found to be in A-fib with rapid ventricular response. You were given multiple doses of metoprolol to bring her heart rate down. -Cardiology recommends that you continue taking your metoprolol and Eliquis. If he began to feel weak or short of breath, check your heart rate. If your heart rate is greater than than 120, take halfa tablet of metoprolol (25 mg). Make sure to attend your scheduled cardiology appointment. -Return to the emergency department for any new worsening symptoms including new chest pain or shortness of breath, confusion, loss of consciousness documented in this [facility]03-05-2023 Emergency department Note* Mindy Aquino RN - 04/26/2022 11:14 AM EST . Mindy Aquino RN 04/26/22 1114 Mindy Aquino RN 04/26/22 1114 [id number] Emergency department Note* Mindy Aquino RN - 04/26/2022 11:14 AM EST . Mindy Aquino RN 04/26/22 1114 Mindy Aquino RN 04/26/22 1114 * Jasmyn Zambrano MD - 04/26/2022 9:19 AM EST Emergency Department Encounter [facility] EMERGENCY DEPT Patient: Linsey Jensen : 1965 Date of Evaluation: 04/26/2022 ED Supervising Physician: Jasmyn Zambrano MD I independently examined and evaluated Linsey Jensen. In brief, Linsey Jensen is a 56 y.o. female that presents to the emergency department with new hisdiagnosis of atrial fibrillation on Eliquis and metoprolol as an outpatient presenting with sudden onset return of A-fib without any recent illnesses. She feels weak and fatigued and poorly all over.Has not missed any doses of her medicine. Request we not use cardioversion as she felt this did notwork last time and does not want to go through it again. No obvious other underlying cause for return to atrial fibrillation. EKG timestamped 0927 21/07/2022 as independently interpreted by me demonstrates atrial fibrillationwith a rapid ventricular response with no acute ST elevation or T wave changes consistent with cardiac ischemia. We will start with IV metoprolol as well as oral metoprolol All EKG interpretations are in epiphany. 10:46 AM Heart rate controlled with IV metoprolol and oral metoprolol. Wheelchair discussion with patient regarding outpatient follow-up with cardiology as she has an appointment coming up very soon. Patient been cautioned that if she has further bounce backs with set unsatisfactorily controlled heart rate,she may require an ablation, however this is not necessary right now, but they would likely want totry electrical cardioversion prior to an ablation again despite the fact that it did not work last time. If it was refractory to that on repeat presentation then could consider ablation versus admission for finding an eye medication regimen that works better for her. At this time, she is very well-a ppearing, feels much better after rate control, her labs are unremarkable. EKG timestamped 1055 on 04/26/2022 as independently interpreted by me demonstrates normal sinus rhythm at a rate of 72 with a MS interval of 188 and a QTc of [address] elevation or depression or T wave changes indicate cardiac ischemia. We will consult cardiology to determine if they want to go up on her rate control medications before her appointment on Wednesday. Total critical care time today provided was 15 minutes. This excludes separately billable procedure. Critical care time provided for A-fib RVR that required close evaluation and/or intervention with IV rate control medications, and sideration of electrical cardioversion, concern for patient decompensation. All diagnostic, treatment, and disposition decisions were made by myself in conjunction with the Resident. I also supervised andrew portions of any procedures performed by the Resident. For all further details of the patient's emergency department visit, please see their documentation. (Please note that portions of this note may have been completed with a voice recognition program. Efforts were made to edit the dictations but occasionally words are mis-transcribed.) Jasmyn Zambrano MD [employer] [facility] [employer] Jasmyn Zambrano MD 04/26/22 1141 * Mindy Aquino RN - 04/26/2022 9:19 AM EST Pt states she has a new dx of afib in past few weeks, dx here. Pt states felt a bit off yesterday but had been working hard around the house, awakened this morning and extremely weak. Pt states felt off during the night but couldn't put it to words, pt on monitor and appears to be in afib RVR. * Reena Rodriguez RN - 04/26/2022 9:19 AM EST Bed: 23 Expected date: Expected time: Means of arrival: Comments: Triage Reena Rodriguez RN 04/26/22926 documented in this [facility]03-05-2023 Emergency department Note* Reena Rodriguez RN - 04/26/2022 9:19 AM EST Bed: 23 Expected date: Expected time: Means of arrival: Comments: Triage Reena Rodriguez RN 04/26/22926 [id number] T[facility]* Mindy Aquino RN - 04/26/2022 9:19 AM EST Pt states she has a new dx of afib in past few weeks, dx here. Pt states felt a bit off yesterday but had been working hard around the house, awakened this morning and extremely weak. Pt states felt off during the night but couldn't put it to words, pt on monitor and appears to be in afib RVR. [facility] [id number] Physician Emergency department Note* Jasmyn Zambrano MD - 04/26/2022 9:19 AM EST Emergency Department Encounter [facility] EMERGENCY DEPT Patient: Linsey Jensen : 1965 Date of Evaluation: 04/26/2022 ED Supervising Physician: Jasmyn Zambrano MD I independently examined and evaluated Linsey Jensen. In brief, Linsey Jensen is a 56 y.o. female that presents to the emergency department with new hisdiagnosis of atrial fibrillation on Eliquis and metoprolol as an outpatient presenting with sudden onset return of A-fib without any recent illnesses. She feels weak and fatigued and poorly all over.Has not missed any doses of her medicine. Request we not use cardioversion as she felt this did notwork last time and does not want to go through it again. No obvious other underlying cause for return to atrial fibrillation. EKG timestamped 0921/07/2022 as independently interpreted by me demonstrates atrial fibrillationwith a rapid ventricular response with no acute ST elevation or T wave changes consistent with cardiac ischemia. We will start with IV metoprolol as well as oral metoprolol All EKG interpretations are in epiphany. 10:46 AM Heart rate controlled with IV metoprolol and oral metoprolol. Wheelchair discussion with patient regarding outpatient follow-up with cardiology as she has an appointment coming up very soon. Patient been cautioned that if she has further bounce backs with set unsatisfactorily controlled heart rate,she may require an ablation, however this is not necessary right now, but they would likely want totry electrical cardioversion prior to an ablation again despite the fact that it did not work last time. If it was refractory to that on repeat presentation then could consider ablation versus admission for finding an eye medication regimen that works better for her. At this time, she is very well-a ppearing, feels much better after rate control, her labs are unremarkable. EKG timestamped 1055 on 04/26/2022 as independently interpreted by me demonstrates normal sinus rhythm at a rate of 72 with a MS interval of 188 and a QTc of [address] elevation or depression or T wave changes indicate cardiac ischemia. We will consult cardiology to determine if they want to go up on her rate control medications before her appointment on Wednesday. Total critical care time today provided was 15 minutes. This excludes separately billable procedure. Critical care time provided for A-fib RVR that required close evaluation and/or intervention with IV rate control medications, and sideration of electrical cardioversion, concern for patient decompensation. All diagnostic, treatment, and disposition decisions were made by myself in conjunction with the Resident. I also supervised andrew portions of any procedures performed by the Resident. For all further details of the patient's emergency department visit, please see their documentation. (Please note that portions of this note may have been completed with a voice recognition program. Efforts were made to edit the dictations but occasionally words are mis-transcribed.) Jasmyn Zambrano MD [facility] Jasmyn Zambrano MD 04/26/22 1141 [employer] Phone: [phone] Telephone encounter Note* Telephone Encounter - ABELARDO Burks CNP - 04/13/2022 7:21 AM EST Please arrange hospital follow-up for atrial fibrillation in 2 weeks with EP ANN. [facility] [id number] Miscellaneous Notes* Telephone Encounter - ABELARDO Burks CNP - 04/13/2022 7:21 AM EST Please arrange hospital follow-up for atrial fibrillation in 2 weeks with EP ANN. documented in this [facility] [id number] Nurse Note* Christal Lara RN - 04/11/2022 4:45 PM EST Discharge instructions and medication list reviewed with pt [id number]* Christal Lara RN - 04/11/2022 4:45 PM EST Discharge instructions and medication list reviewed with pt pt dc to home documented in this [facility]02-18-2023 Hospital course Narrative* Randall Willis MD - 04/11/2022 2:42 PM EST Hospitalist Discharge Summary Linsey Jensen : 1965 Admit date: 04/09/2022 Discharge date: 04/11/2022 Admitting Physician: Jennyfer Dias MD Primary Care Physician: Jacquie Agudelo Code Status: Full Code DISCHARGE DIAGNOSIS: Atrial fibrillation, unspecified type (HCC) Body mass index is 35.51 kg/m . Past Medical History: Diagnosis Date Bronchitis Crohn disease (HCC) Hypertension Incisional hernia 02/2016 Dr. Velazquez-- [facility] Vitamin D deficiency Hospital Course: See discharge diagnoses list above and medication adjustments below in med rec. Patient was treated with heparin initially. S/p colonoscopy which showed Abnormal cecal mucosa and vasculature; biopsied Polyp s/p removal Hemorrhoids No active bleeding or old blood seen GI recommended OK to start anticoagulation. Follow biopsy result with her GI Dr Tadeo outpatient. Discussed with cardiology, will start metoprolol and eliquis, follow EP outpt for possible Flecainide therapy. Patient is in sinus and discharged in improved and stable condition. Discharge Instructions: Diet: Dietary Orders (From admission, onward) Start Ordered 04/11/22 0954 Adult diet Regular Diet effective now Question: Diet type Answer: Regular 04/11/22 0953 Activity: as tolerated Disposition: Patient discharged in stable condition to Home. Greater than 30 minutes spent discharging the patient and coming up with patient discharge plan. Vitals: BP (!) 150/93 (BP Location: Left arm, Patient Position: Sitting) Pulse 92 Temp 37.1 C (98.8 F) (Temporal) Resp 20 Ht 5' 6 (1.676 m) Wt 220 lb (99.8 kg) SpO2 95% BMI 35.51 kg/m Pulse Ox: SpO2 Av.8 % Min: 94 % Max: 100 % Supplemental O2: O2 Flow Rate (L/min): 2 L/min General appearance: No apparent distress, appears stated age and cooperative with exam. HEENT: Eyes: No scleral icterus Oral: Tongue is semi-moist Cardiovascular: S1/S2 heard, RRR Respiratory: Clear to auscultation bilaterally Abdomen: Soft, non-tender, non-distended bowel sounds positive Musculoskeletal: No obvious deformities seen Skin: No visible rashes or lesions. Discharge Medications: Medication List START taking these medications apixaban 5 MG tablet Commonly known as: Eliquis Take 1 tablet (5 mg) by mouth 2 times daily. metoprolol tartrate 50 MG tablet Commonly known as: Lopressor Take 1 tablet (50 mg) by mouth 2 times daily. CONTINUE taking these medications cinnamon 500 MG capsule STOP taking these medications atenolol 25 MG tablet Commonly known as: Tenormin Where to Get Your Medications You can get these medications from any pharmacy Bring a paper prescription for each of these medications apixaban 5 MG tablet metoprolol tartrate 50 MG tablet Recommended Follow-up: No follow-up provider specified. Complexity of Follow up: [] Moderate Complexity: follow up within 7-14 calendar days (35951) [x] Severe Complexity: follow up within 7 calendar days (98429) Follow up Testing, Pending results or Referrals at Transitional Care Visit: [x] yes [] no Instructions to MA: Please call patient on day after discharge (must document patient contacted within 2 business days of discharge). Follow up questions for MA: 1. Did you get medications filled and taking them as instructed from discharge? 2. Are you following your discharge instructions from your hospital stay? 3. Please confirm patient is scheduled for a follow up appointment within the above time frame. Signed: Randall Willis MD Division of Hospitalist Medicine [place] [place] documented in this [facility]02-18-2023 History of Present illness Narrative* Melania Tovar, DTR - 04/11/2022 1:10 PM EST Nutrition rescreen completed. Chart reviewed. Patient to be monitored and followed by the diet ct scan technician. * River Aldana APRN - MURTAZA - 04/11/2022 8:29 AM EST [facility] Cardiology /Electrophysiology Progress Note HPI / Interval History: Linsey Jensen a 56 .y female was undergoing a follow up colonoscopy and reportedly during induction,patient was noted to go into A fib RVR with elevated rates of 150-170bpm. She reported no chest pain, no shortness of breath, no dizziness or lightheadedness. She simply noted some palpitations that was not concerning for her. She was emergently taken to the ED at [facility], where she was attempted to becardioverted after Etomidate and Fentianyl administration 3 times unsuccessfully. She was given metoprolol tartrate PO 100mg (at 8pm) and multiple IV administrations of 5mg without response around 5-6pm (6 doses total), with improved HR response but remained in a fib. She spontaenously cardiovertedat 1140pm and has been in sinus rhythm ever since. Pt just returned from colonoscopy, Feeling well at this time, No reports of chest pain, shortness of breath, palpitations, dizziness or lightheadedness, No reports of bleeding Assessment/Plan HF NYHA Class [] I [] II [] III [] IV New onset of Non Valvular atrial fibrillation with RVR-admitted from colonoscopy where this occurred during induction/. Procedure aborted- remains on tele with SR Rates 60s CHADSVASc of 2 (sex and HTN) Previous history of rectal bleeding of unclear etiology, concerns for Chrohns vs malignancy vs hemorrhoids or fissures Remains on heparin gtt, rate control with metoprolol 50mg BID GI reports no risk for bleeding ok to start anticoagulation therapy, possible consideration for rhythm control strategy rather than rate control strategy Echo ; pending results: if no evidence of structural heart disease can consider class 1c antiarrhythmics such as Flecainide starting at 50mg bid- If echo normal patient can be discharged today and follow up as OP Will discuss today with Dr Chris for further recommendations Follow up to be arranged with EP Medications: influenza, 0.5 mL, IntraMUSCular, Once metoprolol tartrate, 50 mg, Oral, BID polyethylene glycol, 2,000 mL, Oral, See admin instructions sodium chloride 0.9%, 10 mL, IntraVENous, 2 times per day Infusion Medications: heparin, 5-30 Units/kg/hr, Last Rate: Stopped (04/11/22 0400) Physical Examination: Vitals: 04/10/22 2201 04/11/22 0206 04/11/22 0557 04/11/22 0705 BP: (!) 141/76 137/75 (!) 150/80 (!) 169/92 BP Location: Left arm Left arm Left arm Patient Position: Lying Lying Lying Pulse: 58 65 80 96 Resp: Temp: 37.4 C (99.4 F) 36.8 C (98.3 F) 36.7 C (98.1 F) 36.7 C (98 F) TempSrc: Temporal Temporal Temporal Temporal SpO2: 98% 96% 96% 99% Weight: Height: Intake/Output Summary (Last 24 hours) at 04/11/2022 0829 Last data filed at 04/10/2022 1851 Gross per 24 hour Intake 2957 ml Output -- Net 2957 ml Wt Readings from Last 3 Encounters: 04/09/22 220 lb (99.8 kg) 01/23/22 225 lb (102 kg) Physical Exam Constitutional: NAD Psychiatric: Alert. Medical insight good Neck: No JVD Respiratory: Lungs are CTA Heart: RRR ; Nl S1 and S2, no murmur, no rub, gallop Abdomen: NABS; soft, non-tender, non-distended Extremities: no LE edema Skin: Warm to touch and well perfused Laboratory Tests: Recent Labs 04/09/22 17204/10/22 0531 04/11/22 0416 NA 139 139 139 K 3.6 3.9 3.5 CL 109* 107 108* CO2 23 24 26 BUN 12 11 9 CREATININE 0.56 0.61 0.61 Recent Labs 04/09/22201104/10/22 0531 04/11/22 0416 WBC 8.7 10.0 8.2 HGB 14.3 13.6 13.1 HCT 42.8 40.2 38.2 MCV 92.1 93.3 93.0 PLT 336 292 257 No results for input(s): CKTOTAL, CKMB, CKMBINDEX, TROPONINI in the last 72 hours. Recent Labs 04/09/22 1725 BNP 29 No results for input(s): TRIG, HDL, LDLCALC, CHOL in the last 72 hours. Lab Results Component Value Date TSH 1.438 04/09/2022 No results found for: EFBP, PLVEF, LVEFPHYS, LVEF2D, EF No results found for this or any previous visit. Other reports reviewed: Cardiac Tests: EC04/09/22 ECG 12-LEAD 04/10/2022 6:43 AM (Final) Impression Sinus rhythm Compared to ECG 04-09-22 Grossly unchanged Electronically Signed On 04-10-2022 6:43:21 EST by Sean Farah Signed by: Sean Farah DO on 04/10/2022 6:43 AM Tracing reviewed. Telemetry findings reviewed: NSR HR 60s No results found for: EFBP, PLVEF, LVEFPHYS, LVEF2D, EF River Aldana, ABELARDO - PERSONAL FINANCIAL COUNSELOR Date Of Service 04/11/2022 Associated attestation - Hay Sinclair MD - 04/11/2022 3:32 PM EST I spoke to our nurse practitioner, River Aldana about this patient. She has a history of hypertension and her [id number] 2 score is 2. She had her first episode of paroxysmal atrial fibrillation ever recorded. Her echo is normal, including a normal left atrial size. She should go home on metoprolol 50 twice daily and Eliquis 5 mg twice daily. There is no need for an antiarrhythmic yet. She should follow-up with EP as an outpatient for further management, including discussion of long-term OAC, need for antiarrhythmics or radiofrequency ablation if the atrial fibrillation recurs. * Randall Willis MD - 04/10/2022 11:52 AM EST Hospitalist Progress Note 04/10/2022 Subjective: Admit Date: 04/09/2022 PCP: Jacquie Agudelo Room#: 06/26 Interval History: No overnight issues. No palpitation, no dizziness. Currently sinus on tele. Denies hematochezia, Denies chest pain, sob, abdominal pain, nausea, vomiting, diarrhea, constipation, fevers, or chills. Adult diet Clear liquid NPO diet NPO except: Sips of Water with Meds 3 Day Weight Change: Unable to Calculate 24HR INTAKE/OUTPUT: No intake or output data in the 24 hours ending 04/10/22 1153 Past Medical History: Past Medical History: Diagnosis Date Bronchitis Crohn disease (HCC) Hypertension Incisional hernia 02/2016 Dr. Velazquez-- [facility] Vitamin D deficiency LABS: CBC: Recent Labs 04/09/22201104/10/22 0531 WBC 8.7 10.0 RBC 4.64 4.31 HGB 14.3 13.6 HCT 42.8 40.2 MCV 92.1 93.3 RDW 13.5 13.6 PLT 336 292 BMP: Recent Labs 04/09/22 1725 04/10/22 0531 NA 139 139 K 3.6 3.9 CL 109* 107 CO2 23 24 BUN 12 11 CREATININE 0.56 0.61 GLUCOSE 119* 108* CALCIUM 8.8 8.6 ANIONGAP 8 7 LIVER PROFILE: Recent Labs 04/09/22 1725 AST 26 ALT 18 BILITOT 1.4* ALKPHOS 95 PROT 7.0 PT/INR: No results for input(s): PROTIME, INR in the last 72 hours. CARDIAC ENZYMES: No results for input(s): TROPONINI in the last 72 hours. Procalcitonin: No results found for: PROCAL COVID-19 PCR: No results for input(s): COVID19 in the last 72 hours. Encounter Date: 04/09/22 ECG 12 lead Result Value Heart Rate 64 QRSD Interval 92 QT Interval 428 QTC Interval 443 P [place] 30 QRS [place] 8 T Wave [place] 16 MS Interval 172 Impression Sinus rhythm Compared to ECG 04-09-22 Grossly unchanged Electronically Signed On 04-10-2022 6:43:21 EST by Sean Farah No echocardiogram results found for the past 12 months @IMAGES@ Objective: Vitals: BP 137/75 Pulse 67 Temp 36.4 C (97.6 F) (Oral) Resp 17 Ht 5' 6 (1.676 m) Wt 220 lb (99.8 kg) SpO2 100% BMI 35.51 kg/m Pulse Ox: SpO2 Av.2 % Min: 90 % Max: 100 % Supplemental O2: O2 Flow Rate (L/min): 2 L/min General appearance: No apparent distress, appears stated age and cooperative with exam. HEENT: Eyes: No scleral icterus Oral: Tongue is semi-moist Cardiovascular: S1/S2 heard, RRR Respiratory: Clear to auscultation bilaterally Abdomen: Soft, non-tender, non-distended bowel sounds positive Musculoskeletal: No obvious deformities seen Skin: No visible rashes or lesions. Medications: Current Facility-Administered Medications: acetaminophen (Tylenol) tablet 650 mg, 650 mg, Oral, q6h PRN OR acetaminophen (Tylenol) suppository 650 mg, 650 mg, Rectal, q6h PRN, Jennyfer Dias MD heparin 25,000 units in dextrose 5% 250mL infusion (premix), 5-30 Units/kg/hr, IntraVENous, Continuous, Jennyfer Dias MD, Last Rate: 11 mL/hr at 04/10/22625, 11 Units/kg/hr at 04/10/22625 heparin injection 2,000 Units, 2,000 Units, IntraVENous, PRN, Jennyfer Dias MD, 2,000 Units at04/10/22625 heparin injection 4,000 Units, 4,000 Units, IntraVENous, PRN, Jennyfer Dias MD influenza vac subunit quadrivalent (Flucelvax) injection 0.5 mL, 0.5 mL, IntraMUSCular, Once, Jennyfer Dias MD metoprolol tartrate (Lopressor) tablet 50 mg, 50 mg, Oral, BID, Tanya Cleary MD ondansetron ODT (Zofran-ODT) disintegrating tablet 4 mg, 4 mg, Oral, q8h PRN OR ondansetron (Zofran) injection 4 mg, 4 mg, IntraVENous, q6h PRN, Jennyfer Dias MD polyethylene glycol (PEG) 3350 (Miralax) packet 17 g, 17 g, Oral, Daily PRN, Jennyfer Dias MD sodium chloride 0.9 % infusion, 5-250 mL/hr, IntraVENous, PRN, Pallavi Terrell. Nesline, POWDERED SUGAR SUPERVISOR - PERSONAL FINANCIAL COUNSELOR sodium chloride 0.9% (NS) flush 10 mL, 10 mL, IntraVENous, 2 times per day, Pallavi M. Nesline, POWDERED SUGAR SUPERVISOR -PERSONAL FINANCIAL COUNSELOR sodium chloride 0.9% (NS) flush 10 mL, 10 mL, IntraVENous, PRN, Pallavi M. Nesline, POWDERED SUGAR SUPERVISOR - PERSONAL FINANCIAL COUNSELOR Current Outpatient Medications: atenolol (Tenormin) 25 MG tablet, Take 25 mg by mouth daily., Disp: , Rfl: cinnamon 500 MG capsule, Take 500 mg by mouth daily., Disp: , Rfl: Assessment Rapid Heart Rate (Pt coming from digestive center. Pt was supposed to get colonoscopy. Pt was given70 mg propofol and 50 mg of esmolol per EMS, states pt then went into a rapid heart rate. Pt deniesa hx of afib, Pt denies any CP. Pt A/Ox4. Pt states she has been having rectal bleeding which is why she was supposed to get colonoscopy. Pt placed on tele monitor. ) Atrial fib RVR Hypertension Hematochezia Possible TATIANA Obesity Past Medical History: Diagnosis Date Bronchitis Crohn disease (HCC) Hypertension Incisional hernia 02/2016 Dr. Velazquez-- [facility] Vitamin D deficiency Plan property assessment monitor Rate control for now Cardiology recommended continue heparin for now in case to stop anytime for colonoscopy and rectal bleed Potential rhythm control Monitor PTT, watch for bleeding. Echo ordered Monitor HH, transfuse PRN consulted GI for IP scopy, plan c scopy 04/11 Clear liquids today Discussed with RN and patient of plan of care. Outpatient PSG study -am labs, replace lytes prn -increase activity -DVT prophylaxis: [] Lovenox [x] Heparin gtt [] SCDs [x] Encourage ambulation [] Already on Anticoagulation Advance Directive: Full Code Discharge planning: TBD Family discussion: Time spent preparing to see the patient, obtaining/reviewing separately obtained history, completing an appropriate medical examination of the patient, ordering medications/tests/procedures, documenting clinical information on the EMR, and/or coordinating care is a subsequent visit: >50 minutes Randall Willis MD Division of Hospitalist Medicine [place] [place] [facility]02-18-2023 Note* Perioperative Nursing Note - Nika Pierson RN - 04/11/2022 8:38 AM EST POST ENDOSCOPY PROCEDURE TRANSFER REPORT Physician: DR Felix Procedure completed: Colonoscopy Specimens obtained: left colon polyp, cecal Bx Medications administered: 650mg propofol Findings: see MD note Complications: none Please call the Main Endoscopy Dept at [phone] for questions. Report called to Christal PERALTA [id number] Note* Perioperative Nursing Note - Nika Pierson RN - 04/11/2022 8:38 AM EST POST ENDOSCOPY PROCEDURE TRANSFER REPORT Physician: DR Felix Procedure completed: Colonoscopy Specimens obtained: left colon polyp, cecal Bx Medications administered: 650mg propofol Findings: see MD note Complications: none Please call the Main Endoscopy Dept at [phone] for questions. Report called to Christal PERALTA [id number] Miscellaneous Notes* Perioperative Nursing Note - Nika Pierson RN - 04/11/2022 8:38 AM EST POST ENDOSCOPY PROCEDURE TRANSFER REPORT Physician: DR Felix Procedure completed: Colonoscopy Specimens obtained: left colon polyp, cecal Bx Medications administered: 650mg propofol Findings: see MD note Complications: none Please call the Main Endoscopy Dept at [phone] for questions. Report called to Christal PERALTA * Pre-Procedure Note - Tiffani Felix MD - 04/11/2022 7:45 AM EST I have personally met the patient. A physical exam was performed. Informed consent was obtained from the patient after explaining the risks (e.g. pancreatitis, perforation, bleeding, infection, cardio respiratory compromise, includingdeath & adverse effects to the medicine), benefits and alternatives to the procedure, which thepatient appeared to understand and so stated. Colonoscopy Tiffani Felix MD 04/11/2022 * Op Note - Tiffani eFlix MD - 04/11/2022 7:10 AM EST [facility] Patient Name: Linsey Jensen Procedure Date: 04/11/2022 7:10 AM Gender: Female Date of : 1965 Age: 56 Admit Type: Inpatient Note Status: Finalized Endoscopist: Tiffani Felix MD Procedure: Colonoscopy Indications: Rectal bleeding Findings: Satisfactory bowel prep; BBPS In the cecum, the vessels appeared dilated with areas of abnormal mucosa, villous in pattern, biopsies were obtained. Otherwise, normal colorectal mucosa with no evidence of inflammation or ulceration 5 mm sessile descending colon polyp, removed with cold snare No diverticulosis Moderate internal hemorrhoids Impression: Abnormal cecal mucosa and vasculature; biopsied Polyp s/p removal Hemorrhoids No active bleeding or old blood seen Recommendation: Diet per primary High fiber diet with supplements Await path results Anti coagulation; no high risk of bleeding from GI standpoint Continue medical management Continue supportive care Follow with primary / referring physicians Follow in GI clinic next week to follow on biopsies Referring MD: Jacquie Agudelo CC Letter to: Jacquie Agudelo Medicines: Monitored Anesthesia Care Procedure: A physical exam was performed. Informed consent was obtained from the patient after explaining the risks (e.g. perforation, bleeding, infection, cardio respiratory compromise & adverse effects to the medicine), benefits and alternatives to the procedure, which the patient appeared to understand and so stated. A timeout procedure was performed. The patient was connected to the monitoring devices. Continuous oxygen was provided with a nasal cannula and IV medicine administered through an indwelling cannula. After appropriate MAC/conscious sedation was achieved, the colonoscope was passed and advanced to the cecum, the position of which was verified by the finding of the cecal base landmarks and the ileo-cecal valve. The colon was inspected on withdrawal. Endoscopic findings are otherwise described below. Examination included retroflexion in the rectum. The procedure seemed to be satisfactorily tolerated. There was no blood loss. The attending endoscopist participated in all aspects of the procedure. Complications: No immediate complications. Comorbidities: ASA 3 Tiffani Felix MD 04/11/2022 8:39:46 AM This report has been signed electronically. Number of Addenda: 0 Note Initiated On: 04/11/2022 7:10 AM * ED Procedure Note - Miller Weems DO - 04/09/2022 4:53 PM ESTAssociated Order(s): Moderate Sedation Procedure Moderate Sedation Performed by: Miller Weems DO Authorized by: Scott Friend DO Consent: Consent obtained: Verbal Consent given by: Patient Risks, benefits, and alternatives were discussed: yes Risks discussed: Inadequate sedation, nausea and respiratory compromise necessitating ventilatory assistance and intubation Alternatives discussed: Analgesia without sedation [address] protocol: Patient identity confirmed: Verbally with patient, arm band and hospital- assigned identification number Indications: Procedure performed: Cardioversion Procedure necessitating sedation performed by: Physician performing sedation Intended level of sedation: Moderate Pre-sedation assessment: Time since last food or drink: NPO for 24 hours ASA classification: class 1 - normal, healthy patient Neck mobility: normal Pre-sedation assessments completed and reviewed: airway patency and hydration status Pre-sedation assessment completed: 04/09/2022 4:25 PM Immediate pre-procedure details: Reassessment: Patient reassessed immediately prior to procedure Reviewed: vital signs Verified: bag valve mask available, emergency equipment available, intubation equipment available, oxygen available and suction available Procedure details (see MAR for exact dosages): Sedation start time: 04/09/2022 4:36 PM Preoxygenation: Nasal cannula Sedation: Etomidate Analgesia: Fentanyl Intra-procedure monitoring: Continuous capnometry, continuous pulse oximetry and blood pressure monitoring Intra-procedure events: none Post-procedure details: Post-sedation assessment completed: 04/09/2022 4:57 PM Procedure completion: Tolerated Miller Weems DO Resident 04/09/22 1657 * ED Procedure Note - Miller Weems DO - 04/09/2022 4:52 PM ESTAssociated Order(s): Electrical Cardioversion Procedure Electrical Cardioversion Performed by: Miller Weems DO Authorized by: Scott Friend DO Consent: Consent obtained: Written Consent given by: Patient Risks, benefits, and alternatives were discussed: yes Risks discussed: Induced arrhythmia, pain and Alternatives discussed: No treatment, rate-control medication and delayed treatment [address] protocol: Procedure explained and questions answered to patient or proxy's satisfaction: yes Relevant documents present and verified: yes Test results available: yes Immediately prior to procedure, a time out was called: yes Patient identity confirmed: Verbally with patient, arm band and hospital- assigned identification number Pre-procedure details: Cardioversion basis: Elective Rhythm: Atrial fibrillation Electrode placement: Anterior-posterior Attempt one: Cardioversion mode: Synchronous Waveform: Biphasic Shock (Joules): 200 Shock outcome: No change in rhythm Attempt two: Cardioversion mode: Synchronous Waveform: Biphasic Shock (Joules): 200 Shock outcome: No change in rhythm Attempt three: Cardioversion mode: Synchronous Waveform: Biphasic Shock (Joules): 200 Shock outcome: No change in rhythm Post-procedure details: Patient status: Awake Procedure completion: Tolerated Miller Weems DO Resident 04/09/221652 documented in this [facility]02-18-2023 Procedure note* Tiffani Felix MD - 04/11/2022 8:36 AM EST Colonoscopy Rectal bleeding A physical exam was performed. Informed consent was obtained from the patient after explaining the risks (e.g. perforation, bleeding, infection, cardio respiratory compromise & adverse effects to the medicine), benefits and alternatives to the procedure, which the patient appeared to understand and so stated. A timeout procedure was performed. The patient was connected to the monitoring devices. Continuous oxygen was provided with a nasal cannula and IV medicine administered through an indwelling cannula. After appropriate MAC/conscious sedation was achieved, the colonoscope was passed and advanced to the cecum, the position of which was verified by the finding of the cecal base landmarks and the ileo-cecal valve. The colon was inspected on withdrawal. Endoscopic findings are otherwise described below. Examination included retroflexion in the rectum.The procedure seemed to be satisfactorily tolerated. There was no blood loss. The attending endoscopist participated in all aspects of the procedure. Findings: Satisfactory bowel prep; BBPS 2/2/2 In the cecum, the vessels appeared dilated with areas of abnormal mucosa, villous in pattern, biopsies were obtained. Otherwise, normal colorectal mucosa with no evidence of inflammation or ulceration 5 mm sessile descending colon polyp, removed with cold snare No diverticulosis Moderate internal hemorrhoids Impression Abnormal cecal mucosa and vasculature; biopsied Polyp s/p removal Hemorrhoids No active bleeding or old blood seen Recommendations Diet per primary High fiber diet with supplements Await path results Anti coagulation; no high risk of bleeding from GI standpoint Continue medical management Continue supportive care Follow with primary / referring physicians Follow in GI clinic next week to follow on biopsies Please call if there are any questions, concerns or change of patient's GI condition. GI will sign off. Tiffani Felix MD 04/11/2022 [employer] Phone: [phone] 108-846802-18-2023 Procedure note* Tiffani Felix MD - 04/11/2022 8:36 AM EST Colonoscopy Rectal bleeding A physical exam was performed. Informed consent was obtained from the patient after explaining the risks (e.g. perforation, bleeding, infection, cardio respiratory compromise & adverse effects to the medicine), benefits and alternatives to the procedure, which the patient appeared to understand and so stated. A timeout procedure was performed. The patient was connected to the monitoring devices. Continuous oxygen was provided with a nasal cannula and IV medicine administered through an indwelling cannula. After appropriate MAC/conscious sedation was achieved, the colonoscope was passed and advanced to the cecum, the position of which was verified by the finding of the cecal base landmarks and the ileo-cecal valve. The colon was inspected on withdrawal. Endoscopic findings are otherwise described below. Examination included retroflexion in the rectum.The procedure seemed to be satisfactorily tolerated. There was no blood loss. The attending endoscopist participated in all aspects of the procedure. Findings: Satisfactory bowel prep; BBPS 2/2/2 In the cecum, the vessels appeared dilated with areas of abnormal mucosa, villous in pattern, biopsies were obtained. Otherwise, normal colorectal mucosa with no evidence of inflammation or ulceration 5 mm sessile descending colon polyp, removed with cold snare No diverticulosis Moderate internal hemorrhoids Impression Abnormal cecal mucosa and vasculature; biopsied Polyp s/p removal Hemorrhoids No active bleeding or old blood seen Recommendations Diet per primary High fiber diet with supplements Await path results Anti coagulation; no high risk of bleeding from GI standpoint Continue medical management Continue supportive care Follow with primary / referring physicians Follow in GI clinic next week to follow on biopsies Please call if there are any questions, concerns or change of patient's GI condition. GI will sign off. Tiffani Felix MD 04/11/2022 documented in this [facility]02-18-2023 Note* Pre-Procedure Note - Tiffani Felix MD - 04/11/2022 7:45 AM EST I have personally met the patient. A physical exam was performed. Informed consent was obtained from the patient after explaining the risks (e.g. pancreatitis, perforation, bleeding, infection, cardio respiratory compromise, includingdeath & adverse effects to the medicine), benefits and alternatives to the procedure, which thepatient appeared to understand and so stated. Colonoscopy Tiffani Felix MD [facility]2022 [id number]* Pre-Procedure Note - Tiffani Felix MD - 04/11/2022 7:45 AM EST I have personally met the patient. A physical exam was performed. Informed consent was obtained from the patient after explaining the risks (e.g. pancreatitis, perforation, bleeding, infection, cardio respiratory compromise, includingdeath & adverse effects to the medicine), benefits and alternatives to the procedure, which thepatient appeared to understand and so stated. Colonoscopy Tiffani Felix MD 04/11/2022 [id number]* Op Note - Tiffani Felix MD - 04/11/2022 7:10 AM [facility] Name: Linsey Jensen Procedure Date: 04/11/2022 7:10 AM Gender: Female Date of : 1965 Age: 56 Admit Type: Inpatient Note Status: Finalized Endoscopist: Tiffani Felix MD Procedure: Colonoscopy Indications: Rectal bleeding Findings: Satisfactory bowel prep; BBPS 2/2/2 In the cecum, the vessels appeared dilated with areas of abnormal mucosa, villous in pattern, biopsies were obtained. Otherwise, normal colorectal mucosa with no evidence of inflammation or ulceration 5 mm sessile descending colon polyp, removed with cold snare No diverticulosis Moderate internal hemorrhoids Impression: Abnormal cecal mucosa and vasculature; biopsied Polyp s/p removal Hemorrhoids No active bleeding or old blood seen Recommendation: Diet per primary High fiber diet with supplements Await path results Anti coagulation; no high risk of bleeding from GI standpoint Continue medical management Continue supportive care Follow with primary / referring physicians Follow in GI clinic next week to follow on biopsies Referring MD: Jacquie Agudelo CC Letter to: Jacquie Agudelo Medicines: Monitored Anesthesia Care Procedure: A physical exam was performed. Informed consent was obtained from the patient after explaining the risks (e.g. perforation, bleeding, infection, cardio respiratory compromise & adverse effects to the medicine), benefits and alternatives to the procedure, which the patient appeared to understand and so stated. A timeout procedure was performed. The patient was connected to the monitoring devices. Continuous oxygen was provided with a nasal cannula and IV medicine administered through an indwelling cannula. After appropriate MAC/conscious sedation was achieved, the colonoscope was passed and advanced to the cecum, the position of which was verified by the finding of the cecal base landmarks and the ileo-cecal valve. The colon was inspected on withdrawal. Endoscopic findings are otherwise described below. Examination included retroflexion in the rectum. The procedure seemed to be satisfactorily tolerated. There was no blood loss. The attending endoscopist participated in all aspects of the procedure. Complications: No immediate complications. Comorbidities: ASA 3 Tiffani Felix MD 04/11/2022 8:39:46 AM This report has been signed electronically. Number of Addenda: 0 Note Initiated On: 04/11/2022 7:10 AM [facility]02-18-2023 Note* Op Note - Tiffani Felix MD - 04/11/2022 7:10 AM EST [facility] Patient Name: Linsey Jensen Procedure Date: 04/11/2022 7:10 AM Gender: Female Date of : 1965 Age: 56 Admit Type: Inpatient Note Status: Finalized Endoscopist: Tiffani Felix MD Procedure: Colonoscopy Indications: Rectal bleeding Findings: Satisfactory bowel prep; BBPS In the cecum, the vessels appeared dilated with areas of abnormal mucosa, villous in pattern, biopsies were obtained. Otherwise, normal colorectal mucosa with no evidence of inflammation or ulceration 5 mm sessile descending colon polyp, removed with cold snare No diverticulosis Moderate internal hemorrhoids Impression: Abnormal cecal mucosa and vasculature; biopsied Polyp s/p removal Hemorrhoids No active bleeding or old blood seen Recommendation: Diet per primary High fiber diet with supplements Await path results Anti coagulation; no high risk of bleeding from GI standpoint Continue medical management Continue supportive care Follow with primary / referring physicians Follow in GI clinic next week to follow on biopsies Referring MD: Jacquie Agudelo CC Letter to: Jacquie Agudelo Medicines: Monitored Anesthesia Care Procedure: A physical exam was performed. Informed consent was obtained from the patient after explaining the risks (e.g. perforation, bleeding, infection, cardio respiratory compromise & adverse effects to the medicine), benefits and alternatives to the procedure, which the patient appeared to understand and so stated. A timeout procedure was performed. The patient was connected to the monitoring devices. Continuous oxygen was provided with a nasal cannula and IV medicine administered through an indwelling cannula. After appropriate MAC/conscious sedation was achieved, the colonoscope was passed and advanced to the cecum, the position of which was verified by the finding of the cecal base landmarks and the ileo-cecal valve. The colon was inspected on withdrawal. Endoscopic findings are otherwise described below. Examination included retroflexion in the rectum. The procedure seemed to be satisfactorily tolerated. There was no blood loss. The attending endoscopist participated in all aspects of the procedure. Complications: No immediate complications. Comorbidities: ASA 3 Tiffani Felix MD 04/11/2022 8:39:46 AM This report has been signed electronically. Number of Addenda: 0 Note Initiated On: 04/11/2022 7:10 AM [id number] Note* Linh Robles RN - 04/10/2022 3:09 PM EST Patient transported to [facility] with ER belting inspector. Patient on portable monitoring manager. No distress noted. Heparin remains infusing. APTT needs drawn at 1800, per order. Linh Robles RN 04/10/22 1510 [id number] Emergency department Note* Linh Robles RN - 04/10/2022 3:09 PM EST Patient transported to [facility] with ER belting inspector. Patient on portable monitoring manager. No distress noted. Heparin remains infusing. APTT needs drawn at 1800, per order. Linh Robles RN 04/10/22 1510 * Linh Robles RN - 04/10/2022 1:27 PM EST Patient resting in bed with family at bedside. Linh Robles RN 04/10/22 1327 * Linh Robles RN - 04/10/2022 1:09 PM EST Patient moved into hospital bed for comfort. Linh Robles RN 04/10/22 1310 * Linh Robles RN - 04/10/2022 12:53 PM EST Heparin rate changed per order. Linh Robles RN 04/10/22 1316 * Linh Robles RN - 04/10/2022 12:46 PM EST Patients tray delivered. Linh Robles RN 04/10/22 1246 * Linh Robles RN - 04/10/2022 12:21 PM EST Patient given menu for clear liquid diet. Linh Robles RN 04/10/22 1221 * Linh Robles RN - 04/10/2022 11:22 AM EST Provider at bedside. Linh Robles RN 04/10/22 1122 * Linh Robles RN - 04/10/2022 11:14 AM EST Report from Angela PERALTA. Linh Robles RN 04/10/22 1114 * April Bustillo RN - 04/10/2022 5:48 AM EST Patient was up to the bathroom heart remained in SR at a rate of 70's to 80 bpm April Bustillo RN 04/10/22 0549 * April Bustillo RN - 04/10/2022 1:05 AM EST Patient remains in SR with a rate of 69 at this time VSS. Patient is resting eyes closed no distress noted April Bustillo RN 04/10/22 0106 * April Bustillo RN - 04/09/2022 11:55 PM EST Patient is now in a sinus rhythm Dr Dias notified and wants the Heparin continued April Bustillo RN 04/10/22 0057 * Nirmala Mendiola RN - 04/09/2022 4:34 PM EST pt placed on defib pads, end tidal CO2, and currently on tele monitor. Consent signed. Pt denies any further questions. Nirmala Mendiola RN 04/09/22 1635 * Aristides Alamo RN - 04/09/2022 4:21 PM EST Pt on monitoring manager/bp cuff/pulse ox/end tital CO2 at this time Aristides Alamo RN 04/09/22 1621 * Nirmala Mendiola RN - 04/09/2022 4:02 PM EST Attending and resident at bedside. Nirmala Mendiola RN 04/09/22 1602 * Miller Weems DO - 04/09/2022 3:35 PM EST EMERGENCY DEPARTMENT ENCOUNTER Pt Name: Linsey Jensen Birthdate 1965 Date of evaluation: 04/09/2022 ED Provider: Miller Weems DO CHIEF COMPLAINT Chief Complaint Patient presents with Rapid Heart Rate Pt coming from digestive center. Pt was supposed to get colonoscopy. Pt was given 70 mg propofol and 50 mg of esmolol per EMS, states pt then went into a rapid heart rate. Pt denies a hx of afib, Pt denies any CP. Pt A/Ox4. Pt states she has been having rectal bleeding which is why she was supposedto get colonoscopy. Pt placed on tele monitor. HISTORY OF PRESENT ILLNESS (Location/Symptom, Timing/Onset, Context/Setting, Quality, Duration, Modifying Factors, Severity) Note limiting factors. I wore appropriate PPE for the entirety of this encounter. HPI Linsey Jensen is a 56 y.o. female who presents to the emergency department with chief complaint ofatrial fibrillation. Patient reports she was about to receive colonoscopy when the physician noticed that her heart rate was fast and irregular approximately a half hour ago. Prior to being transferred she had received 50 of esmolol and 70 of propofol. Patient states she has no history of atrial fibrillation. Patient states she has been fasting in preparation for this procedure and the only medication she takes at home is atenolol which she has not taken today in preparation for this procedure.Patient denies any history of congestive heart failure and denies previous CA. Nursing Notes were reviewed. Limitations to history: None Outside historians: Family REVIEW OF SYSTEMS Review of Systems Pertinent positives and negatives as per HPI. PAST MEDICAL HISTORY Past Medical History: Diagnosis Date Bronchitis Crohn disease (HCC) Hypertension Incisional hernia 02/2016 Dr. Velazquez-- [facility] Vitamin D deficiency SURGICAL HISTORY Past Surgical History: Procedure Laterality Date APPENDECTOMY 01/29/15 INCISIONAL HERNIA REPAIR 03/25/2016 LAP w/ mesh-- Dr. Velazquez -- [facility] LUNG DECORTICATION Right 01-03-2015 LUNG SURGERY 2015 fluid CURRENT MEDICATIONS Previous Medications ATENOLOL (TENORMIN) 25 MG TABLET Take 25 mg by mouth daily. CINNAMON 500 MG CAPSULE Take 500 mg by mouth daily. ALLERGIES Patient has no known allergies. FAMILY HISTORY Family History Problem Relation Name Age of Onset Heart disease Father No Known Problems Brother No Known Problems Brother No Known Problems Sister No Known Problems Mother Cancer Father skin SOCIAL HISTORY Social History Socioeconomic History Marital status: Tobacco Use Smoking status: Never Smokeless tobacco: Never Substance and Sexual Activity Alcohol use: No Alcohol/week: 0.0 standard drinks Drug use: No SCREENINGS PHYSICAL EXAM ED Triage Vitals Temp Pulse Resp BP -- -- -- -- SpO2 Temp src Heart Rate Source Patient Position -- -- -- -- BP Location FiO2 (%) -- -- Physical Exam Vitals reviewed. Constitutional: General: She is not in acute distress. Appearance: Normal appearance. She is not ill-appearing. HENT: Head: Normocephalic and atraumatic. Right Ear: Ear canal and external ear normal. Left Ear: Ear canal and external ear normal. Nose: Nose normal. No congestion or rhinorrhea. Mouth/Throat: Mouth: Mucous membranes are moist. Pharynx: Oropharynx is clear. Eyes: General: Right eye: No discharge. Left eye: No discharge. Extraocular Movements: Extraocular movements intact. Pupils: Pupils are equal, round, and reactive to light. Cardiovascular: Rate and Rhythm: Tachycardia present. Rhythm irregular. Pulses: Normal pulses. Heart sounds: Normal heart sounds. No murmur heard. Pulmonary: Effort: Pulmonary effort is normal. Breath sounds: Normal breath sounds. No wheezing, rhonchi or rales. Abdominal: General: Bowel sounds are normal. There is no distension. Palpations: Abdomen is soft. Tenderness: There is no abdominal tenderness. There is no right CVA tenderness or left CVA tenderness. Musculoskeletal: General: No swelling or tenderness. Normal range of motion. Cervical back: Normal range of motion and neck supple. No tenderness. Right lower leg: No edema. Left lower leg: No edema. Skin: General: Skin is warm and dry. Capillary Refill: Capillary refill takes less than 2 seconds. Findings: No erythema or rash. Neurological: General: No focal deficit present. Mental Status: She is alert and oriented to person, place, and time. Cranial Nerves: No cranial nerve deficit. Sensory: No sensory deficit. Motor: No weakness. Psychiatric: Mood and Affect: Mood normal. Behavior: Behavior normal. DIAGNOSTIC RESULTS Procedures/EKG: EKG was reviewed by myself. Physician EKG interpretation can be found in [facility] RADIOLOGY (Per Emergency Physician): Interpretation per the Radiologist below, if available at the time of this note: No orders to display ED BEDSIDE ULTRASOUND: Performed by ED Physician - none LABS: Labs Reviewed COMPREHENSIVE METABOLIC PANEL - Abnormal Result Value SODIUM 139 POTASSIUM 3.6 CHLORIDE 109 (*) CARBON DIOXIDE 23 ANION GAP 8 UREA NITROGEN 12 CREATININE 0.56 GLUCOSE 119 (*) CALCIUM 8.8 AST (SGOT) 26 ALT 18 ALKALINE PHOSPHATASE 95 ALBUMIN 4.2 BILIRUBIN, TOTAL 1.4 (*) TOTAL PROTEIN 7.0 eGFR >90.0 THYROID STIMULATING HORMONE - Normal THYROID STIMULATING HORMONE 1.438 MAGNESIUM - Normal MAGNESIUM 2.0 All other labs were within normal range or not returned as of this dictation. EMERGENCY DEPARTMENT COURSE and DIFFERENTIAL DIAGNOSIS/MDM: Vitals: Vitals: 04/09/22 1726 04/09/22 1746 04/09/22 1813 04/09/22 1835 BP: (!) 138/98 (!) 143/91 (!) 134/108 (!) 139/90 BP Location: Patient Position: Pulse: (!) 127 (!) 120 (!) 118 (!) 127 Resp: 12 18 16 18 Temp: TempSrc: SpO2: 94% 94% 95% 96% Weight: Height: The patient presented with chief complaint of irregular heart rate/tachycardia. Our workup consisted of ordering/reviewing: CMP Magnesium TSH. Patient is in agreement with this plan. I considered atrial fibrillation, atrial flutter, MAT, or other irregular narrow complex tachycardia. Patient provided IV etomidate, IV fentanyl, and cardioversion for further details please refer to procedure notes.Upon reevaluation the patient's symptoms are unchanged . Patient provided IV metoprolol 3 times with improvement in HR to approximately 125. Patient updated on the results of their lab studies. Patient will benefit from in patient admission for further evaluation and management of their condition. P atient agreeable with plan for admission. Questions sought and answered. Hospitalist paged and has agreed with plan for admission. Patient admitted in stable condition. Medications dilTIAZem (Cardizem) injection 15 mg (has no administration in time range) fentaNYL (Sublimaze) injection 75 mcg (75 mcg IntraVENous Given 04/09/22 1620) etomidate (Amidate) injection 10 mg (10 mg IntraVENous Given 04/09/22 1620) etomidate (Amidate) injection (5 mg IntraVENous Given 04/09/22 1644) metoprolol tartrate (Lopressor) injection 5 mg (5 mg IntraVENous Given 04/09/22 1716) metoprolol tartrate (Lopressor) injection 5 mg (5 mg IntraVENous Given 04/09/22 1835) REVAL: CONSULTS: None PROCEDURES: Unless otherwise noted below, none Procedures Patients symptoms are consistent with sepsis, severe sepsis, or septic shock (If yes use .sepsiscoremeasure): FINAL IMPRESSION 1. Atrial fibrillation, unspecified type (HCC) DISPOSITION Admit 04/09/2022 07:05:41 PM PATIENT REFERRED TO: No follow-up provider specified. DISCHARGE MEDICATIONS: New Prescriptions No medications on file (Comment: Please note this report has been produced using speech recognition software and may contain errors related to that system including errors in grammar, punctuation, and spelling, as well as words and phrases that may be inappropriate. If there are any questions or concerns please feel freeto contact the dictating provider for clarification.) Miller Weems DO (electronically signed) Emergency Medicine Physician Miller Weems DO Resident 04/09/22 1908 * Scott Friend DO - 04/09/2022 3:35 PM EST Emergency Department Encounter [facility] EMERGENCY DEPT Patient: Linsey Jensen : 1965 Date of Evaluation: 04/09/2022 ED Supervising Physician: Scott Friend DO I independently examined and evaluated Linsey Jensen. This will serve as my Supervisory note and shared attestation. I did perform a substantive portion of the visit including all aspects of the Medical Decision Making. I wore appropriate PPE for the entirety of this encounter. In brief, Linsey Jensen is a 56 y.o. female that presents to the emergency department from an outpatient GI center where she was being sedated for colonoscopy when she went into atrial fibrillation with rapid ventricular response. No history of atrial fibrillation in the past. She was sent with a r hythm strip that showed her in sinus rhythm at about 2:45 PM. Focused exam: Vital signs noted. Well-appearing patient lying in bed, normal respiratory pattern without conversational dyspnea or respiratory distress. Normal speech and mental status. Heart tachycardic and irregularly irregular. Brief ED course/MDM: Informed consent for procedural sedation and cardioversion was obtained by me,patient clearly understood the risks, benefits and alternatives as I presented them to her. Husbandwas at bedside and he also verbalized understanding. I was present and supervising the sedation and attempted cardioversion performed by Dr. Wade, see his note for full details. 3 attempts at cardioversion were all unsuccessful. We subsequently attempted rate control, but after 6 doses of metoprolol 5 mg each, she was still between 110 125 bpm. A dose of Cardizem was given and the patient was hospitalized for further evaluation and treatment. All diagnostic, treatment, and disposition decisions were made by myself in conjunction with the Resident. I also supervised andrew portions of any procedures performed by the Resident. For all further details of the patient's emergency department visit, please see their documentation. (Comment: Please note this report has been produced using speech recognition software and may contain errors related to that system including errors in grammar, punctuation, and spelling, as well as words and phrases that may be inappropriate. If there are any questions or concerns please feel freeto contact the dictating provider for clarification.) Scott Friend DO Acute Care [facility] Scott Friend DO 04/09/222028 * Angela Virgen RN - 04/09/2022 3:35 PM EST Bed: 65 Expected date: Expected time: Means of arrival: Comments: [facility] Angela Virgen RN 04/09/22 1535 * Nadege London RN - 04/09/2022 3:35 PM EST Bed: 05 Expected date: Expected time: Means of arrival: Comments: anibal London RN 04/09/22 2239 * Nirmala Mendiola RN - 04/09/2022 1:55 PM EST Pt ambulated to the bathroom and back without difficulty. Nirmala Mendiola RN 04/09/22 1602 documented in this [facility]02-17-2023 Emergency department Note* Linh Robles RN - 04/10/2022 1:27 PM EST Patient resting in bed with family at bedside. Linh Robles RN 04/10/22 [id number] Emergency department Note* Linh Robles RN - 04/10/2022 1:09 PM EST Patient moved into hospital bed for comfort. Linh Robles RN 04/10/[address]17-2023 Emergency department Note* Linh Robles RN - 04/10/2022 12:53 PM EST Heparin rate changed per order. Linh Robles RN 04/10/[address]17-2023 Emergency department Note* Linh Robles RN - 04/10/2022 12:46 PM EST Patients tray delivered. Linh Robles RN 04/10/22 [id number] Emergency department Note* Linh Robles RN - 04/10/2022 12:21 PM EST Patient given menu for clear liquid diet. Linh Robles RN 04/10/[address]17-2023 Emergency department Note* Linh Robles RN - 04/10/2022 11:22 AM EST Provider at bedside. Linh Robles RN 04/10/[address]17-2023 Emergency department Note* Linh Robles RN - 04/10/2022 11:14 AM EST Report from Angela PERALTA. Linh Robles RN 04/10/22 1114 [id number]* Byron Mayberry, - 04/10/2022 9:12 AM EST Associated Order(s): IP CONSULT TO GI Department of Internal Medicine Gastroenterology Attending Consult Note Reason for Consult: The patient was seen in consultation at the request of Jennyfer Dias re: Scheduled for colonoscopy for reported anemia/hematochezia. Already drank the prep. Assess for colonoscopy in patient. Need assessment to continue anticoagulation for AF. CHIEF COMPLAINT: Rapid heart rate History Obtained From: patient HISTORY OF PRESENT ILLNESS: Linsey Jensen is a 56 year old female with a past medical history of HTN who presented to the ED from GI office in [facility] on 04/09/22 with tachycardia and A fib. RVR. Patient had prior scope done in 2016 for concern of crohn's disease with results revealing an entire normal colon. She was recommended for repeat colonoscopy in 2019. Patient had appointment with adobe developer in January 2022 who recommended repeat colonoscopy as she has been overdue since 2016 and has been having blood streaks with wiping. She was scheduled for a colonoscopy yesterday. She received bowel prep and went into A. Fib RVR after given sedation medications during colonoscopy. She was brought to the ED for A. Fib and 3 attempts of cardioversion were done unsuccessfully, metoprolol tartrate was given (6 doses total) and patient was still in A. Fib. She spontaneously converted back to NSR yesterday evening. This am, patient has no complaints including headaches, chest pain, SOB, abdominal pain, nausea andvomiting. Her last reported bm this am was darker brown and liquid/runny. Allergies: Patient has no known allergies. Current Medications: Current Facility-Administered Medications: acetaminophen (Tylenol) tablet 650 mg, 650 mg, Oral, q6h PRN OR acetaminophen (Tylenol) suppository 650 mg, 650 mg, Rectal, q6h PRN, Jennyfer Dias MD heparin 25,000 units in dextrose 5% 250mL infusion (premix), 5-30 Units/kg/hr, IntraVENous, Continuous, Jennyfer Dias MD, Last Rate: 11 mL/hr at 04/10/22 0626, 11 Units/kg/hr at 04/10/22 06 heparin injection 2,000 Units, 2,000 Units, IntraVENous, PRN, Jennyfer Dias MD, 2,000 Units at04/10/22 06 heparin injection 4,000 Units, 4,000 Units, IntraVENous, PRN, Jennyfer Dias MD influenza vac subunit quadrivalent (Flucelvax) injection 0.5 mL, 0.5 mL, IntraMUSCular, Once, Jennyfer Dias MD metoprolol tartrate (Lopressor) tablet 25 mg, 25 mg, Oral, BID, Jennyfer Dias MD, 25 mg at 04/10/22 0838 ondansetron ODT (Zofran-ODT) disintegrating tablet 4 mg, 4 mg, Oral, q8h PRN OR ondansetron (Zofran) injection 4 mg, 4 mg, IntraVENous, q6h PRN, Jennyfer Dias MD polyethylene glycol (PEG) 3350 (Miralax) packet 17 g, 17 g, Oral, Daily PRN, Jennyfer Dias MD Current Outpatient Medications: atenolol (Tenormin) 25 MG tablet, Take 25 mg by mouth daily., Disp: , Rfl: cinnamon 500 MG capsule, Take 500 mg by mouth daily., Disp: , Rfl: Past Medical History: Active Ambulatory Problems Diagnosis Date Noted Abnormal menses 02/12/2015 Hypertension 02/12/2015 Endometriosis 02/12/2015 S/P partial resection of colon 02/12/2015 Resolved Ambulatory Problems Diagnosis Date Noted No Resolved Ambulatory Problems Past Medical History: Diagnosis Date Bronchitis Crohn disease (HCC) Incisional hernia 02/2016 Vitamin D deficiency Past Surgical History: Social History Socioeconomic History Marital status: Spouse name: Not on file Number of children: Not on file Years of education: Not on file Highest education level: Not on file Occupational History Not on file Tobacco Use Smoking status: Never Smokeless tobacco: Never Substance and Sexual Activity Alcohol use: No Alcohol/week: 0.0 standard drinks Drug use: No Sexual activity: Not on file Comment: -vasectomy Other Topics Concern Not on file Social History Narrative Not on file Social Determinants of Health Financial Resource Strain: Not on file Food Insecurity: Not on file Transportation Needs: Not on file Physical Activity: Not on file Stress: Not on file Social Connections: Not on file Intimate Partner Violence: Not on file Housing Stability: Not on file Family History: Family History Problem Relation Name Age of Onset Heart disease Father No Known Problems Brother No Known Problems Brother No Known Problems Sister No Known Problems Mother Cancer Father skin No family history colon or stomach cancer. Social History: TOBACCO: reports that she has never smoked. She has never used smokeless tobacco. ETOH: reports no history of alcohol use. DRUGS: reports no history of drug use. 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 Normal appetite and weight. No PEREIRA, visual disturbance, eye pain, jaundice, sore throat or mouth ulcers. No skin rash or itching. No CP, SOB, CASTELLANOS, cough or wheeze. No urinary frequency, urgency, hematuria, or dysuria. No myalgia, arthralgia, or joint swelling. No weakness, numbness, or confusion. GI per HPI. No polyuria, polydipsia, heat or cold intolerance. PHYSICAL EXAM: VS: BP 131/80 Pulse 75 Temp 36.4 C (97.6 F) (Oral) Resp 16 Ht 5' 6 (1.676 m) Wt 220 lb (99.8 kg) SpO2 100% BMI 35.51 kg/m Body mass index is 35.51 kg/m . Constitutional: No acute distress. Well-nourished. Well hydrated Head/Eyes: Pupils are equal and round; Conjunctiva are not injected; Sclera are non-icteric. ENT: Ears/nose without external abnormalities. Oral mucosa is pink and moist. Neck: No JVD. No carotid bruits; No thyromegaly. Respiratory: Clear to auscultation bilaterally without any added sounds. Effort is normal Heart: Regular, Normal S1 and S2. No murmur; No added sounds. Abdomen: Normal BS, soft, non-tender, non-distended; no hepatomegaly. Extremities/Skin: No LE edema; Skin warm to touch and well perfused. Musculoskeletal: Head - normocephalic. Neck - supple Psychiatric: AAO x 3, answers appropriately, normal mood, normal affect. Non-focal. DATA: Recent blood work and relevant radiologic and endoscopic studies were reviewed and discussed with the patient. CBC: Recent Labs 04/09/22201104/10/22 0531 WBC 8.7 10.0 RBC 4.64 4.31 HGB 14.3 13.6 HCT 42.8 40.2 MCV 92.1 93.3 MCH 30.7 31.6 MCHC 33.3 33.8 RDW 13.5 13.6 PLT 336 292 MPV 8.1 7.8 CMP: Recent Labs 04/09/22 1725 04/10/22 0531 NA 139 139 K 3.6 3.9 CL 109* 107 CO2 23 24 BUN 12 11 CREATININE 0.56 0.61 GLUCOSE 119* 108* CALCIUM 8.8 8.6 PROT 7.0 -- BILITOT 1.4* -- ALKPHOS 95 -- AST 26 -- ALT 18 -- PT/INR: No results for input(s): INR in the last 72 hours. Radiologic Review N/A Endoscopic Review Colonoscopy 01/01/2015=> Dr. Tadeo A localized area of moderately congested, erythematous and inflamed mucosa was found at the appendiceal orifice. Biopsies were taken with a cold forceps for histology. A single small-mouthed diverticulum was found in the transverse colon. Colonoscopy 06/16/2016-> - The entire examined colon is normal. Biopsied. IMPRESSION/RECOMMENDATIONS: #New Onset A.Fib RVR #Hematochezia Patient has new onset A. Fib RVR and currently in NSR. She was bowel prepped yesterday and there isconcern for lower GI bleed as patient has been having episodes of bright red blood with wiping. Plan for colonoscopy tomorrow to further evaluate for GI source of bleeding. Patient is to take bowel prep, NPO at midnight and stop heparin before procedure. Associated attestation - Javy Alfaro MD - 04/10/2022 5:17 PM EST Attending Supervising Physician s Attestation Statement I have personally performed and participated in all the above services (including HPI and PE). I have reviewed the case with Advance Practice Provider (ANN)/ resident / student, and agreed with the ANN's / resident / student assessment and plan as above. I have following additions or modifications: Discussed personally with cardiology . Needs anticoagulation for atleast a month. Colonoscopy in am to evaluate for source of bleeding however from hx appears hemorrhoidal source. If able, hold heparin for 6 hours before the procedure in morning tomorrow. Will need re-prep given 48 hours of GI fluids accumulation. Dominic MANN Gastroenterology [facility] [place] Work Phone: [phone] Consult note* Byronvirginia Mayberry, - 04/10/2022 9:12 AM ESTAssociated Order(s): IP CONSULT TO GI Department of Internal Medicine Gastroenterology Attending Consult Note Reason for Consult: The patient was seen in consultation at the request of Jennyfer Dias re: Scheduled for colonoscopy for reported anemia/hematochezia. Already drank the prep. Assess for colonoscopy in patient. Need assessment to continue anticoagulation for AF. CHIEF COMPLAINT: Rapid heart rate History Obtained From: patient HISTORY OF PRESENT ILLNESS: Linsey Jensen is a 56 year old female with a past medical history of HTN who presented to the ED from GI office in [facility] on 04/09/22 with tachycardia and A fib. RVR. Patient had prior scope done in 2016 for concern of crohn's disease with results revealing an entire normal colon. She was recommended for repeat colonoscopy in 2019. Patient had appointment with adobe developer in January 2022 who recommended repeat colonoscopy as she has been overdue since 2016 and has been having blood streaks with wiping. She was scheduled for a colonoscopy yesterday. She received bowel prep and went into A. Fib RVR after given sedation medications during colonoscopy. She was brought to the ED for A. Fib and 3 attempts of cardioversion were done unsuccessfully, metoprolol tartrate was given (6 doses total) and patient was still in A. Fib. She spontaneously converted back to NSR yesterday evening. This am, patient has no complaints including headaches, chest pain, SOB, abdominal pain, nausea andvomiting. Her last reported bm this am was darker brown and liquid/runny. Allergies: Patient has no known allergies. Current Medications: Current Facility-Administered Medications: acetaminophen (Tylenol) tablet 650 mg, 650 mg, Oral, q6h PRN OR acetaminophen (Tylenol) suppository 650 mg, 650 mg, Rectal, q6h PRN, Jennyfer Dias MD heparin 25,000 units in dextrose 5% 250mL infusion (premix), 5-30 Units/kg/hr, IntraVENous, Continuous, Jennyfer Dias MD, Last Rate: 11 mL/hr at 04/10/22625, 11 Units/kg/hr at 04/10/22625 heparin injection 2,000 Units, 2,000 Units, IntraVENous, PRN, Jennyfer Dias MD, 2,000 Units at04/10/22625 heparin injection 4,000 Units, 4,000 Units, IntraVENous, PRN, Jennyfer Dias MD influenza vac subunit quadrivalent (Flucelvax) injection 0.5 mL, 0.5 mL, IntraMUSCular, Once, Jennyfer Dias MD metoprolol tartrate (Lopressor) tablet 25 mg, 25 mg, Oral, BID, Jennyfer Dias MD, 25 mg at 04/10/22 0838 ondansetron ODT (Zofran-ODT) disintegrating tablet 4 mg, 4 mg, Oral, q8h PRN OR ondansetron (Zofran) injection 4 mg, 4 mg, IntraVENous, q6h PRN, Jennyfer Dias MD polyethylene glycol (PEG) 3350 (Miralax) packet 17 g, 17 g, Oral, Daily PRN, Jennyfer Dias MD Current Outpatient Medications: atenolol (Tenormin) 25 MG tablet, Take 25 mg by mouth daily., Disp: , Rfl: cinnamon 500 MG capsule, Take 500 mg by mouth daily., Disp: , Rfl: Past Medical History: Active Ambulatory Problems Diagnosis Date Noted Abnormal menses 02/12/2015 Hypertension 02/12/2015 Endometriosis 02/12/2015 S/P partial resection of colon 02/12/2015 Resolved Ambulatory Problems Diagnosis Date Noted No Resolved Ambulatory Problems Past Medical History: Diagnosis Date Bronchitis Crohn disease (HCC) Incisional hernia 02/2016 Vitamin D deficiency Past Surgical History: Social History Socioeconomic History Marital status: Spouse name: Not on file Number of children: Not on file Years of education: Not on file Highest education level: Not on file Occupational History Not on file Tobacco Use Smoking status: Never Smokeless tobacco: Never Substance and Sexual Activity Alcohol use: No Alcohol/week: 0.0 standard drinks Drug use: No Sexual activity: Not on file Comment: -vasectomy Other Topics Concern Not on file Social History Narrative Not on file Social Determinants of Health Financial Resource Strain: Not on file Food Insecurity: Not on file Transportation Needs: Not on file Physical Activity: Not on file Stress: Not on file Social Connections: Not on file Intimate Partner Violence: Not on file Housing Stability: Not on file Family History: Family History Problem Relation Name Age of Onset Heart disease Father No Known Problems Brother No Known Problems Brother No Known Problems Sister No Known Problems Mother Cancer Father skin No family history colon or stomach cancer. Social History: TOBACCO: reports that she has never smoked. She has never used smokeless tobacco. ETOH: reports no history of alcohol use. DRUGS: reports no history of drug use. 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 Normal appetite and weight. No PEREIRA, visual disturbance, eye pain, jaundice, sore throat or mouth ulcers. No skin rash or itching. No CP, SOB, CASTELLANOS, cough or wheeze. No urinary frequency, urgency, hematuria, or dysuria. No myalgia, arthralgia, or joint swelling. No weakness, numbness, or confusion. GI per HPI. No polyuria, polydipsia, heat or cold intolerance. PHYSICAL EXAM: VS: BP 131/80 Pulse 75 Temp 36.4 C (97.6 F) (Oral) Resp 16 Ht 5' 6 (1.676 m) Wt 220 lb (99.8 kg) SpO2 100% BMI 35.51 kg/m Body mass index is 35.51 kg/m . Constitutional: No acute distress. Well-nourished. Well hydrated Head/Eyes: Pupils are equal and round; Conjunctiva are not injected; Sclera are non-icteric. ENT: Ears/nose without external abnormalities. Oral mucosa is pink and moist. Neck: No JVD. No carotid bruits; No thyromegaly. Respiratory: Clear to auscultation bilaterally without any added sounds. Effort is normal Heart: Regular, Normal S1 and S2. No murmur; No added sounds. Abdomen: Normal BS, soft, non-tender, non-distended; no hepatomegaly. Extremities/Skin: No LE edema; Skin warm to touch and well perfused. Musculoskeletal: Head - normocephalic. Neck - supple Psychiatric: AAO x 3, answers appropriately, normal mood, normal affect. Non-focal. DATA: Recent blood work and relevant radiologic and endoscopic studies were reviewed and discussed with the patient. CBC: Recent Labs 04/09/22201104/10/22 0531 WBC 8.7 10.0 RBC 4.64 4.31 HGB 14.3 13.6 HCT 42.8 40.2 MCV 92.1 93.3 MCH 30.7 31.6 MCHC 33.3 33.8 RDW 13.5 13.6 PLT 336 292 MPV 8.1 7.8 CMP: Recent Labs 04/09/22 1725 04/10/22 0531 NA 139 139 K 3.6 3.9 CL 109* 107 CO2 23 24 BUN 12 11 CREATININE 0.56 0.61 GLUCOSE 119* 108* CALCIUM 8.8 8.6 PROT 7.0 -- BILITOT 1.4* -- ALKPHOS 95 -- AST 26 -- ALT 18 -- PT/INR: No results for input(s): INR in the last 72 hours. Radiologic Review N/A Endoscopic Review Colonoscopy 01/01/2015=> Dr. Tadeo A localized area of moderately congested, erythematous and inflamed mucosa was found at the appendiceal orifice. Biopsies were taken with a cold forceps for histology. A single small-mouthed diverticulum was found in the transverse colon. Colonoscopy 06/16/2016-> - The entire examined colon is normal. Biopsied. IMPRESSION/RECOMMENDATIONS: #New Onset A.Fib RVR #Hematochezia Patient has new onset A. Fib RVR and currently in NSR. She was bowel prepped yesterday and there isconcern for lower GI bleed as patient has been having episodes of bright red blood with wiping. Plan for colonoscopy tomorrow to further evaluate for GI source of bleeding. Patient is to take bowel prep, NPO at midnight and stop heparin before procedure. Associated attestation - Javy Alfaro MD - 04/10/2022 5:17 PM EST Attending Supervising Physician s Attestation Statement I have personally performed and participated in all the above services (including HPI and PE). I have reviewed the case with Advance Practice Provider (ANN)/ resident / student, and agreed with the ANN's / resident / student assessment and plan as above. I have following additions or modifications: Discussed personally with cardiology . Needs anticoagulation for atleast a month. Colonoscopy in am to evaluate for source of bleeding however from hx appears hemorrhoidal source. If able, hold heparin for 6 hours before the procedure in morning tomorrow. Will need re-prep given 48 hours of GI fluids accumulation. Dominic MANN Gastroenterology documented in this [facility]02-17-2023 Emergency department Note* April Bustillo RN - 04/10/2022 5:48 AM EST Patient was up to the bathroom heart remained in SR at a rate of 70's to 80 bpm April Bustillo RN 04/10/[address]17-2023 Emergency department Note* April Bustillo RN - 04/10/2022 1:05 AM EST Patient remains in SR with a rate of 69 at this time VSS. Patient is resting eyes closed no distress noted April Bustillo RN 04/10/[address]16-2023 Emergency department Note* April Bustillo RN - 04/09/2022 11:55 PM EST Patient is now in a sinus rhythm Dr Dias notified and wants the Heparin continued April Bustillo RN 04/10/22 0057 [id number] History and physical note* Jennyfer Dias MD - 04/09/2022 7:20 PM EST Images from the original note were not included. Attending History and Physical Admit Date: 04/09/2022 PCP: Jacquie Agudelo CHIEF COMPLAINT: AF with RVR Reason for Admission: AF with RVR History Obtained From: patient and HISTORY OF PRESENT ILLNESS: Linsey is a 56 y.o. female with past medical history below who presents with chief complaint listed above. She reports she had a blood streaks in january with wiping since January and was scheduled for a colonoscopy today. She reports she drank the prep and didn't take the atenolol today and when she was placed on the monitor for the procedure she was found to be in AF with RVR and was given esmolol and sent to the ED. She was hemodynamically stable and without any symptoms. She was shocked x3 in the ED with sedation that failed to convert her and continued to be in AF with RVR and given multiple rounds of lopressor. Her current rates are 90-110s on exam. She denies any felling of palpitations in the past, on day of procedure or currently. She denies any SOB on exertion and denies any chest pain. She does endorse snoring at home but has not gotten tested for sleep apnea. Denies chest pain, sob, abdominal pain, nausea, vomiting, diarrhea, constipation, fevers, or chills. Will admit for further evaluation and management. Past Medical History: Past Medical History: Diagnosis Date Bronchitis Crohn disease (HCC) Hypertension Incisional hernia 02/2016 Dr. Velazquez-- [facility] Vitamin D deficiency Past Surgical History: Past Surgical History: Procedure Laterality Date APPENDECTOMY 01/29/15 INCISIONAL HERNIA REPAIR 03/25/2016 LAP w/ mesh-- Dr. Velazquez -- [facility] LUNG DECORTICATION Right 01-03-2015 LUNG SURGERY 2015 fluid Social History: Social History Socioeconomic History Marital status: Spouse name: Not on file Number of children: Not on file Years of education: Not on file Highest education level: Not on file Occupational History Not on file Tobacco Use Smoking status: Never Smokeless tobacco: Never Substance and Sexual Activity Alcohol use: No Alcohol/week: 0.0 standard drinks Drug use: No Sexual activity: Not on file Comment: -vasectomy Other Topics Concern Not on file Social History Narrative Not on file Social Determinants of Health Financial Resource Strain: Not on file Food Insecurity: Not on file Transportation Needs: Not on file Physical Activity: Not on file Stress: Not on file Social Connections: Not on file Intimate Partner Violence: Not on file Housing Stability: Not on file Family History: Family History Problem Relation Name Age of Onset Heart disease Father No Known Problems Brother No Known Problems Brother No Known Problems Sister No Known Problems Mother Cancer Father skin Medications Prior to Admission: No current facility-administered medications on file prior to encounter. Current Outpatient Medications on File Prior to Encounter Medication Sig Dispense Refill atenolol (Tenormin) 25 MG tablet Take 25 mg by mouth daily. cinnamon 500 MG capsule Take 500 mg by mouth daily. Allergies: No Known Allergies REVIEW OF SYSTEMS: Review of Systems Constitutional: Negative for activity change, chills, diaphoresis, fatigue and fever. HENT: Negative for nosebleeds and trouble swallowing. Eyes: Negative for discharge and visual disturbance. Respiratory: Negative for apnea, cough, chest tightness, shortness of breath and wheezing. Cardiovascular: Negative for chest pain, palpitations and leg swelling. Gastrointestinal: Positive for blood in stool. Negative for abdominal distention, abdominal pain, diarrhea, nausea and vomiting. Endocrine: Negative for cold intolerance and heat intolerance. Genitourinary: Negative for hematuria. Musculoskeletal: Negative for gait problem and myalgias. Skin: Negative for color change and rash. Neurological: Negative for dizziness, seizures, syncope, facial asymmetry, speech difficulty, weakness, light-headedness, numbness and headaches. Hematological: Does not bruise/bleed easily. Psychiatric/Behavioral: Negative for dysphoric mood. Vitals: BP 129/86 Pulse 109 Temp 36.4 C (97.6 F) (Oral) Resp 18 Ht 5' 6 (1.676 m) Wt 220 lb (99.8 kg) SpO2 96% BMI 35.51 kg/m BMI Classification: Obese (BMI 30.0-39.9) Pulse Ox: SpO2 Av.9 % Min: 90 % Max: 100 % Supplemental O2: O2 Flow Rate (L/min): 2 L/min PHYSICAL EXAM: Vitals: 04/09/22 1813 04/09/22 1835 04/09/22 1932 04/09/222003 BP: (!) 134/108 (!) 139/90 138/79 129/86 BP Location: Patient Position: Pulse: (!) 118 (!) 127 96 109 Resp: 16 18 18 18 Temp: TempSrc: SpO2: 95% 96% 94% 96% Weight: Height: No intake or output data in the 24 hours ending 04/09/222014 Wt Readings from Last 3 Encounters: 04/09/22 220 lb (99.8 kg) 01/23/22 225 lb (102 kg) Physical Exam Constitutional: General: She is not in acute distress. HENT: Head: Normocephalic and atraumatic. Right Ear: External ear normal. Left Ear: External ear normal. Mouth/Throat: Mouth: Mucous membranes are moist. Eyes: General: No scleral icterus. Conjunctiva/sclera: Conjunctivae normal. Neck: Thyroid: No thyromegaly. Vascular: No JVD. Cardiovascular: Rate and Rhythm: Tachycardia present. Rhythm irregular. Chest Wall: PMI is not displaced. Heart sounds: No murmur heard. No S3 or S4 sounds. Pulmonary: Effort: Pulmonary effort is normal. Breath sounds: Normal breath sounds. No wheezing or rales. Abdominal: General: Bowel sounds are normal. There is no distension. Palpations: Abdomen is soft. Tenderness: There is no abdominal tenderness. Musculoskeletal: General: No swelling. Cervical back: Neck supple. Comments: 2+ Non pitting edema Skin: General: Skin is warm and dry. Findings: No rash. Nails: There is no clubbing. Neurological: General: No focal deficit present. Mental Status: She is alert and oriented to person, place, and time. Gait: Gait is intact. Psychiatric: Mood and Affect: Mood normal. Thought Content: Thought content normal. DATA: CBC: No results for input(s): WBC, RBC, HGB, HCT, MCV, RDW, PLT in the last 72 hours. BMP: Recent Labs 04/09/22 1725 NA 139 K 3.6 CL 109* CO2 23 BUN 12 CREATININE 0.56 GLUCOSE 119* CALCIUM 8.8 ANIONGAP 8 LIVER PROFILE: Recent Labs 04/09/22 1725 AST 26 ALT 18 BILITOT 1.4* ALKPHOS 95 PROT 7.0 PT/INR: No results for input(s): PROTIME, INR in the last 72 hours. CARDIAC ENZYMES: No results for input(s): TROPONINI in the last 72 hours. Procalcitonin: No results found for: PROCAL Urine Culture: No results found for this or any previous visit. COVID-19 PCR: No results for input(s): COVID19 in the last 72 hours. I reviewed: [x] laboratory results [x] radiographic results At the time of today's encounter. Pt was advised of the results. IMPRESSION and Medical Decision Making: AF with RVR: Undetermined time line. TSH WNL. Lopressor 100mg x1 and then lopressor 50mg BID. Echocardiogram ordered since rates are 90-100s and possibly by tomorrow will continue to slow down. Fluids for 10 hours. [id number] of 2 but given uncontrolled rates and multiple attempts of failed cardioversion would strongly consider anticoagulation.CBC pending and if stable will start heparin drip pending further recs from gastroenterology and cardiology. HTN: Controlled Hematochezia: Suspected crohn's disease in the past with no confirmation. GI consulted since she already drank the prep for the procedure and will probably need the workup for resuming anticoagulation. Clear liquids and NPO at midnight. Snoring: possible TATIANA. Will need outpatient workup for sleep apnea. Discussed with patient and . -am labs, replace lytes prn -vitals per routine -home meds as ordered -DVT prophylaxis: [] Lovenox [] Heparin [] SCDs [x] Encourage ambulation [x] Already on Anticoagulation Anticipated Discharge - Date - 04/10/2022 - Location - Home - Pending the following - Assessment by GI for colonoscopy and Cardiology consult. Total time spent (which include face to face and non face to face encounters) : 45 minutes Extended Emergency Contact Information Primary Emergency Contact: Ramos Jensen Relation: Spouse Code status: Full Code -see below for additional orders, further recommendations to follow Orders Placed This Encounter Procedures Electrical Cardioversion Moderate Sedation TSH Comprehensive metabolic panel Magnesium CBC APTT CBC auto differential Basic Metabolic Panel w/ Mg Reflex NT PRO BNP Basic metabolic panel Adult diet Clear Liquid NPO diet NPO except: Sips of Water with Meds NPO diet NPO except: Sips of Water with Meds Telemetry monitoring for Other Indication; atrial fibrillation Vital Signs Notify patient's primary care provider of admission Activity No Restrictions Notify physician per STANDARD parameters Full code Consult to Gastroenterology Consult to Cardiology Initiate Oxygen Therapy Protocol ECG 12 lead ECG 12 lead ECG 12 lead Transthoracic echocardiogram (TTE) complete with contrast, bubble, strain, and 3D PRN Admit to inpatient Please forward a copy of this H&P to the patient's PCP. Thank you. [employer] Work Phone: [phone] 380-142702-16-2023 History and physical note* Jennyfer Dias MD - 04/09/2022 7:20 PM EST Images from the original note were not included. Attending History and Physical Admit Date: 04/09/2022 PCP: Jacquie Agudelo CHIEF COMPLAINT: AF with RVR Reason for Admission: AF with RVR History Obtained From: patient and HISTORY OF PRESENT ILLNESS: Linsey is a 56 y.o. female with past medical history below who presents with chief complaint listed above. She reports she had a blood streaks in january with wiping since January and was scheduled for a colonoscopy today. She reports she drank the prep and didn't take the atenolol today and when she was placed on the monitor for the procedure she was found to be in AF with RVR and was given esmolol and sent to the ED. She was hemodynamically stable and without any symptoms. She was shocked x3 in the ED with sedation that failed to convert her and continued to be in AF with RVR and given multiple rounds of lopressor. Her current rates are 90-110s on exam. She denies any felling of palpitations in the past, on day of procedure or currently. She denies any SOB on exertion and denies any chest pain. She does endorse snoring at home but has not gotten tested for sleep apnea. Denies chest pain, sob, abdominal pain, nausea, vomiting, diarrhea, constipation, fevers, or chills. Will admit for further evaluation and management. Past Medical History: Past Medical History: Diagnosis Date Bronchitis Crohn disease (HCC) Hypertension Incisional hernia 02/2016 Dr. Velazquez-- [facility] Vitamin D deficiency Past Surgical History: Past Surgical History: Procedure Laterality Date APPENDECTOMY 01/29/15 INCISIONAL HERNIA REPAIR 03/25/2016 LAP w/ mesh-- Dr. Velazquez -- [facility] LUNG DECORTICATION Right 01-03-2015 LUNG SURGERY 2015 fluid Social History: Social History Socioeconomic History Marital status: Spouse name: Not on file Number of children: Not on file Years of education: Not on file Highest education level: Not on file Occupational History Not on file Tobacco Use Smoking status: Never Smokeless tobacco: Never Substance and Sexual Activity Alcohol use: No Alcohol/week: 0.0 standard drinks Drug use: No Sexual activity: Not on file Comment: -vasectomy Other Topics Concern Not on file Social History Narrative Not on file Social Determinants of Health Financial Resource Strain: Not on file Food Insecurity: Not on file Transportation Needs: Not on file Physical Activity: Not on file Stress: Not on file Social Connections: Not on file Intimate Partner Violence: Not on file Housing Stability: Not on file Family History: Family History Problem Relation Name Age of Onset Heart disease Father No Known Problems Brother No Known Problems Brother No Known Problems Sister No Known Problems Mother Cancer Father skin Medications Prior to Admission: No current facility-administered medications on file prior to encounter. Current Outpatient Medications on File Prior to Encounter Medication Sig Dispense Refill atenolol (Tenormin) 25 MG tablet Take 25 mg by mouth daily. cinnamon 500 MG capsule Take 500 mg by mouth daily. Allergies: No Known Allergies REVIEW OF SYSTEMS: Review of Systems Constitutional: Negative for activity change, chills, diaphoresis, fatigue and fever. HENT: Negative for nosebleeds and trouble swallowing. Eyes: Negative for discharge and visual disturbance. Respiratory: Negative for apnea, cough, chest tightness, shortness of breath and wheezing. Cardiovascular: Negative for chest pain, palpitations and leg swelling. Gastrointestinal: Positive for blood in stool. Negative for abdominal distention, abdominal pain, diarrhea, nausea and vomiting. Endocrine: Negative for cold intolerance and heat intolerance. Genitourinary: Negative for hematuria. Musculoskeletal: Negative for gait problem and myalgias. Skin: Negative for color change and rash. Neurological: Negative for dizziness, seizures, syncope, facial asymmetry, speech difficulty, weakness, light-headedness, numbness and headaches. Hematological: Does not bruise/bleed easily. Psychiatric/Behavioral: Negative for dysphoric mood. Vitals: BP 129/86 Pulse 109 Temp 36.4 C (97.6 F) (Oral) Resp 18 Ht 5' 6 (1.676 m) Wt 220 lb (99.8 kg) SpO2 96% BMI 35.51 kg/m BMI Classification: Obese (BMI 30.0-39.9) Pulse Ox: SpO2 Av.9 % Min: 90 % Max: 100 % Supplemental O2: O2 Flow Rate (L/min): 2 L/min PHYSICAL EXAM: Vitals: 04/09/22 1813 04/09/22 1835 04/09/22 1932 04/09/222003 BP: (!) 134/108 (!) 139/90 138/79 129/86 BP Location: Patient Position: Pulse: (!) 118 (!) 127 96 109 Resp: 16 18 18 18 Temp: TempSrc: SpO2: 95% 96% 94% 96% Weight: Height: No intake or output data in the 24 hours ending 04/09/222014 Wt Readings from Last 3 Encounters: 04/09/22 220 lb (99.8 kg) 01/23/22 225 lb (102 kg) Physical Exam Constitutional: General: She is not in acute distress. HENT: Head: Normocephalic and atraumatic. Right Ear: External ear normal. Left Ear: External ear normal. Mouth/Throat: Mouth: Mucous membranes are moist. Eyes: General: No scleral icterus. Conjunctiva/sclera: Conjunctivae normal. Neck: Thyroid: No thyromegaly. Vascular: No JVD. Cardiovascular: Rate and Rhythm: Tachycardia present. Rhythm irregular. Chest Wall: PMI is not displaced. Heart sounds: No murmur heard. No S3 or S4 sounds. Pulmonary: Effort: Pulmonary effort is normal. Breath sounds: Normal breath sounds. No wheezing or rales. Abdominal: General: Bowel sounds are normal. There is no distension. Palpations: Abdomen is soft. Tenderness: There is no abdominal tenderness. Musculoskeletal: General: No swelling. Cervical back: Neck supple. Comments: 2+ Non pitting edema Skin: General: Skin is warm and dry. Findings: No rash. Nails: There is no clubbing. Neurological: General: No focal deficit present. Mental Status: She is alert and oriented to person, place, and time. Gait: Gait is intact. Psychiatric: Mood and Affect: Mood normal. Thought Content: Thought content normal. DATA: CBC: No results for input(s): WBC, RBC, HGB, HCT, MCV, RDW, PLT in the last 72 hours. BMP: Recent Labs 04/09/22 1725 NA 139 K 3.6 CL 109* CO2 23 BUN 12 CREATININE 0.56 GLUCOSE 119* CALCIUM 8.8 ANIONGAP 8 LIVER PROFILE: Recent Labs 04/09/22 1725 AST 26 ALT 18 BILITOT 1.4* ALKPHOS 95 PROT 7.0 PT/INR: No results for input(s): PROTIME, INR in the last 72 hours. CARDIAC ENZYMES: No results for input(s): TROPONINI in the last 72 hours. Procalcitonin: No results found for: PROCAL Urine Culture: No results found for this or any previous visit. COVID-19 PCR: No results for input(s): COVID19 in the last 72 hours. I reviewed: [x] laboratory results [x] radiographic results At the time of today's encounter. Pt was advised of the results. IMPRESSION and Medical Decision Making: AF with RVR: Undetermined time line. TSH WNL. Lopressor 100mg x1 and then lopressor 50mg BID. Echocardiogram ordered since rates are 90-100s and possibly by tomorrow will continue to slow down. Fluids for 10 hours. [id number] of 2 but given uncontrolled rates and multiple attempts of failed cardioversion would strongly consider anticoagulation.CBC pending and if stable will start heparin drip pending further recs from gastroenterology and cardiology. HTN: Controlled Hematochezia: Suspected crohn's disease in the past with no confirmation. GI consulted since she already drank the prep for the procedure and will probably need the workup for resuming anticoagulation. Clear liquids and NPO at midnight. Snoring: possible TATIANA. Will need outpatient workup for sleep apnea. Discussed with patient and . -am labs, replace lytes prn -vitals per routine -home meds as ordered -DVT prophylaxis: [] Lovenox [] Heparin [] SCDs [x] Encourage ambulation [x] Already on Anticoagulation Anticipated Discharge - Date - 04/10/2022 - Location - Home - Pending the following - Assessment by GI for colonoscopy and Cardiology consult. Total time spent (which include face to face and non face to face encounters) : 45 minutes Extended Emergency Contact Information Primary Emergency Contact: Ramos Jensen Relation: Spouse Code status: Full Code -see below for additional orders, further recommendations to follow Orders Placed This Encounter Procedures Electrical Cardioversion Moderate Sedation TSH Comprehensive metabolic panel Magnesium CBC APTT CBC auto differential Basic Metabolic Panel w/ Mg Reflex NT PRO BNP Basic metabolic panel Adult diet Clear Liquid NPO diet NPO except: Sips of Water with Meds NPO diet NPO except: Sips of Water with Meds Telemetry monitoring for Other Indication; atrial fibrillation Vital Signs Notify patient's primary care provider of admission Activity No Restrictions Notify physician per STANDARD parameters Full code Consult to Gastroenterology Consult to Cardiology Initiate Oxygen Therapy Protocol ECG 12 lead ECG 12 lead ECG 12 lead Transthoracic echocardiogram (TTE) complete with contrast, bubble, strain, and 3D PRN Admit to inpatient Please forward a copy of this H&P to the patient's PCP. Thank you. documented in this [facility]02-16-2023 Note* ED Procedure Note - Miller Weems DO - 04/09/2022 4:53 PM ESTAssociated Order(s): Moderate Sedation Procedure Moderate Sedation Performed by: Miller Weems DO Authorized by: Scott Friend DO Consent: Consent obtained: Verbal Consent given by: Patient Risks, benefits, and alternatives were discussed: yes Risks discussed: Inadequate sedation, nausea and respiratory compromise necessitating ventilatory assistance and intubation Alternatives discussed: Analgesia without sedation [address] protocol: Patient identity confirmed: Verbally with patient, arm band and hospital- assigned identification number Indications: Procedure performed: Cardioversion Procedure necessitating sedation performed by: Physician performing sedation Intended level of sedation: Moderate Pre-sedation assessment: Time since last food or drink: NPO for 24 hours ASA classification: class 1 - normal, healthy patient Neck mobility: normal Pre-sedation assessments completed and reviewed: airway patency and hydration status Pre-sedation assessment completed: 04/09/2022 4:25 PM Immediate pre-procedure details: Reassessment: Patient reassessed immediately prior to procedure Reviewed: vital signs Verified: bag valve mask available, emergency equipment available, intubation equipment available, oxygen available and suction available Procedure details (see MAR for exact dosages): Sedation start time: 04/09/2022 4:36 PM Preoxygenation: Nasal cannula Sedation: Etomidate Analgesia: Fentanyl Intra-procedure monitoring: Continuous capnometry, continuous pulse oximetry and blood pressure monitoring Intra-procedure events: none Post-procedure details: Post-sedation assessment completed: 04/09/2022 4:57 PM Procedure completion: Tolerated Miller Weems DO Resident 04/09/221656 [facility]02-16-2023 Note* ED Procedure Note - Miller Weems DO - 04/09/2022 4:53 PM ESTAssociated Order(s): Moderate Sedation Procedure Moderate Sedation Performed by: Miller Weems DO Authorized by: Scott Friend DO Consent: Consent obtained: Verbal Consent given by: Patient Risks, benefits, and alternatives were discussed: yes Risks discussed: Inadequate sedation, nausea and respiratory compromise necessitating ventilatory assistance and intubation Alternatives discussed: Analgesia without sedation [address] protocol: Patient identity confirmed: Verbally with patient, arm band and hospital- assigned identification number Indications: Procedure performed: Cardioversion Procedure necessitating sedation performed by: Physician performing sedation Intended level of sedation: Moderate Pre-sedation assessment: Time since last food or drink: NPO for 24 hours ASA classification: class 1 - normal, healthy patient Neck mobility: normal Pre-sedation assessments completed and reviewed: airway patency and hydration status Pre-sedation assessment completed: 04/09/2022 4:25 PM Immediate pre-procedure details: Reassessment: Patient reassessed immediately prior to procedure Reviewed: vital signs Verified: bag valve mask available, emergency equipment available, intubation equipment available, oxygen available and suction available Procedure details (see MAR for exact dosages): Sedation start time: 04/09/2022 4:36 PM Preoxygenation: Nasal cannula Sedation: Etomidate Analgesia: Fentanyl Intra-procedure monitoring: Continuous capnometry, continuous pulse oximetry and blood pressure monitoring Intra-procedure events: none Post-procedure details: Post-sedation assessment completed: 04/09/2022 4:57 PM Procedure completion: Tolerated Miller Weems DO Resident 04/09/221656 [facility]02-16-2023 Note* ED Procedure Note - Miller Weems DO - 04/09/2022 4:52 PM ESTAssociated Order(s): Electrical Cardioversion Procedure Electrical Cardioversion Performed by: Miller Weems DO Authorized by: Scott Friend DO Consent: Consent obtained: Written Consent given by: Patient Risks, benefits, and alternatives were discussed: yes Risks discussed: Induced arrhythmia, pain and Alternatives discussed: No treatment, rate-control medication and delayed treatment [address] protocol: Procedure explained and questions answered to patient or proxy's satisfaction: yes Relevant documents present and verified: yes Test results available: yes Immediately prior to procedure, a time out was called: yes Patient identity confirmed: Verbally with patient, arm band and hospital- assigned identification number Pre-procedure details: Cardioversion basis: Elective Rhythm: Atrial fibrillation Electrode placement: Anterior-posterior Attempt one: Cardioversion mode: Synchronous Waveform: Biphasic Shock (Joules): 200 Shock outcome: No change in rhythm Attempt two: Cardioversion mode: Synchronous Waveform: Biphasic Shock (Joules): 200 Shock outcome: No change in rhythm Attempt three: Cardioversion mode: Synchronous Waveform: Biphasic Shock (Joules): 200 Shock outcome: No change in rhythm Post-procedure details: Patient status: Awake Procedure completion: Tolerated Miller Weems DO Resident 04/09/221652 [place] [id number] Note* ED Procedure Note - Miller Weems DO - 04/09/2022 4:52 PM ESTAssociated Order(s): Electrical Cardioversion Procedure Electrical Cardioversion Performed by: Miller Weems DO Authorized by: Scott Friend DO Consent: Consent obtained: Written Consent given by: Patient Risks, benefits, and alternatives were discussed: yes Risks discussed: Induced arrhythmia, pain and Alternatives discussed: No treatment, rate-control medication and delayed treatment [address] protocol: Procedure explained and questions answered to patient or proxy's satisfaction: yes Relevant documents present and verified: yes Test results available: yes Immediately prior to procedure, a time out was called: yes Patient identity confirmed: Verbally with patient, arm band and hospital- assigned identification number Pre-procedure details: Cardioversion basis: Elective Rhythm: Atrial fibrillation Electrode placement: Anterior-posterior Attempt one: Cardioversion mode: Synchronous Waveform: Biphasic Shock (Joules): 200 Shock outcome: No change in rhythm Attempt two: Cardioversion mode: Synchronous Waveform: Biphasic Shock (Joules): 200 Shock outcome: No change in rhythm Attempt three: Cardioversion mode: Synchronous Waveform: Biphasic Shock (Joules): 200 Shock outcome: No change in rhythm Post-procedure details: Patient status: Awake Procedure completion: Tolerated Miller Weems DO Resident 04/09/[address]16-2023 Emergency department Note* Nirmala Mendiola RN - 04/09/2022 4:34 PM EST pt placed on defib pads, end tidal CO2, and currently on tele monitor. Consent signed. Pt denies any further questions. Nirmala Mendiola RN 04/09/[address]16-2023 Emergency department Note* Aristides Alamo RN - 04/09/2022 4:21 PM EST Pt on monitoring manager/bp cuff/pulse ox/end tital CO2 at this time Aristides Alamo RN 04/09/[address]16-2023 Emergency department Note* Nirmala Mendiola RN - 04/09/2022 4:02 PM EST Attending and resident at bedside. Nirmala Mendiola RN 04/09/22 1602 [facility]02-16-2023 Emergency department Note* Angela Virgen RN - 04/09/2022 3:35 PM EST Bed: 65 Expected date: Expected time: Means of arrival: Comments: EMS Angela Virgen RN 04/09/22 1535 [facility]02-16-2023 Emergency department Note* Nadege London RN - 04/09/2022 3:35 PM EST Bed: 05 Expected date: Expected time: Means of arrival: Comments: [place] Nadege London RN 04/09/22 [address] [facility]02-16-2023 Physician Emergency department Note* Miller Weems DO - 04/09/2022 3:35 PM EST EMERGENCY DEPARTMENT ENCOUNTER Pt Name: Linsey Jensen Birthdate 1965 Date of evaluation: 04/09/2022 ED Provider: Miller Weems DO CHIEF COMPLAINT Chief Complaint Patient presents with Rapid Heart Rate Pt coming from digestive center. Pt was supposed to get colonoscopy. Pt was given 70 mg propofol and 50 mg of esmolol per EMS, states pt then went into a rapid heart rate. Pt denies a hx of afib, Pt denies any CP. Pt A/Ox4. Pt states she has been having rectal bleeding which is why she was supposedto get colonoscopy. Pt placed on tele monitor. HISTORY OF PRESENT ILLNESS (Location/Symptom, Timing/Onset, Context/Setting, Quality, Duration, Modifying Factors, Severity) Note limiting factors. I wore appropriate PPE for the entirety of this encounter. HPI Linsey Jensen is a 56 y.o. female who presents to the emergency department with chief complaint ofatrial fibrillation. Patient reports she was about to receive colonoscopy when the physician noticed that her heart rate was fast and irregular approximately a half hour ago. Prior to being transferred she had received 50 of esmolol and 70 of propofol. Patient states she has no history of atrial fibrillation. Patient states she has been fasting in preparation for this procedure and the only medication she takes at home is atenolol which she has not taken today in preparation for this procedure.Patient denies any history of congestive heart failure and denies previous CA. Nursing Notes were reviewed. Limitations to history: None Outside historians: Family REVIEW OF SYSTEMS Review of Systems Pertinent positives and negatives as per HPI. PAST MEDICAL HISTORY Past Medical History: Diagnosis Date Bronchitis Crohn disease (HCC) Hypertension Incisional hernia 02/2016 Dr. Velazquez-- BEENA Vitamin D deficiency SURGICAL HISTORY Past Surgical History: Procedure Laterality Date APPENDECTOMY 01/29/15 INCISIONAL HERNIA REPAIR 03/25/2016 LAP w/ mesh-- Dr. Velazquez -- BEENA LUNG DECORTICATION Right 01-03-2015 LUNG SURGERY 2014 fluid CURRENT MEDICATIONS Previous Medications ATENOLOL (TENORMIN) 25 MG TABLET Take 25 mg by mouth daily. CINNAMON 500 MG CAPSULE Take 500 mg by mouth daily. ALLERGIES Patient has no known allergies. FAMILY HISTORY Family History Problem Relation Name Age of Onset Heart disease Father No Known Problems Brother No Known Problems Brother No Known Problems Sister No Known Problems Mother Cancer Father skin SOCIAL HISTORY Social History Socioeconomic History Marital status: Tobacco Use Smoking status: Never Smokeless tobacco: Never Substance and Sexual Activity Alcohol use: No Alcohol/week: 0.0 standard drinks Drug use: No SCREENINGS PHYSICAL EXAM ED Triage Vitals Temp Pulse Resp BP -- -- -- -- SpO2 Temp src Heart Rate Source Patient Position -- -- -- -- BP Location FiO2 (%) -- -- Physical Exam Vitals reviewed. Constitutional: General: She is not in acute distress. Appearance: Normal appearance. She is not ill-appearing. HENT: Head: Normocephalic and atraumatic. Right Ear: Ear canal and external ear normal. Left Ear: Ear canal and external ear normal. Nose: Nose normal. No congestion or rhinorrhea. Mouth/Throat: Mouth: Mucous membranes are moist. Pharynx: Oropharynx is clear. Eyes: General: Right eye: No discharge. Left eye: No discharge. Extraocular Movements: Extraocular movements intact. Pupils: Pupils are equal, round, and reactive to light. Cardiovascular: Rate and Rhythm: Tachycardia present. Rhythm irregular. Pulses: Normal pulses. Heart sounds: Normal heart sounds. No murmur heard. Pulmonary: Effort: Pulmonary effort is normal. Breath sounds: Normal breath sounds. No wheezing, rhonchi or rales. Abdominal: General: Bowel sounds are normal. There is no distension. Palpations: Abdomen is soft. Tenderness: There is no abdominal tenderness. There is no right CVA tenderness or left CVA tenderness. Musculoskeletal: General: No swelling or tenderness. Normal range of motion. Cervical back: Normal range of motion and neck supple. No tenderness. Right lower leg: No edema. Left lower leg: No edema. Skin: General: Skin is warm and dry. Capillary Refill: Capillary refill takes less than 2 seconds. Findings: No erythema or rash. Neurological: General: No focal deficit present. Mental Status: She is alert and oriented to person, place, and time. Cranial Nerves: No cranial nerve deficit. Sensory: No sensory deficit. Motor: No weakness. Psychiatric: Mood and Affect: Mood normal. Behavior: Behavior normal. DIAGNOSTIC RESULTS Procedures/EKG: EKG was reviewed by myself. Physician EKG interpretation can be found in [facility] RADIOLOGY (Per Emergency Physician): Interpretation per the Radiologist below, if available at the time of this note: No orders to display ED BEDSIDE ULTRASOUND: Performed by ED Physician - none LABS: Labs Reviewed COMPREHENSIVE METABOLIC PANEL - Abnormal Result Value SODIUM 139 POTASSIUM 3.6 CHLORIDE 109 (*) CARBON DIOXIDE 23 ANION GAP 8 UREA NITROGEN 12 CREATININE 0.56 GLUCOSE 119 (*) CALCIUM 8.8 AST (SGOT) 26 ALT 18 ALKALINE PHOSPHATASE 95 ALBUMIN 4.2 BILIRUBIN, TOTAL 1.4 (*) TOTAL PROTEIN 7.0 eGFR >90.0 THYROID STIMULATING HORMONE - Normal THYROID STIMULATING HORMONE 1.438 MAGNESIUM - Normal MAGNESIUM 2.0 All other labs were within normal range or not returned as of this dictation. EMERGENCY DEPARTMENT COURSE and DIFFERENTIAL DIAGNOSIS/MDM: Vitals: Vitals: 04/09/22 1726 04/09/22 1746 04/09/22 1813 04/09/22 1835 BP: (!) 138/98 (!) 143/91 (!) 134/108 (!) 139/90 BP Location: Patient Position: Pulse: (!) 127 (!) 120 (!) 118 (!) 127 Resp: 12 18 16 18 Temp: TempSrc: SpO2: 94% 94% 95% 96% Weight: Height: The patient presented with chief complaint of irregular heart rate/tachycardia. Our workup consisted of ordering/reviewing: CMP Magnesium TSH. Patient is in agreement with this plan. I considered atrial fibrillation, atrial flutter, MAT, or other irregular narrow complex tachycardia. Patient provided IV etomidate, IV fentanyl, and cardioversion for further details please refer to procedure notes.Upon reevaluation the patient's symptoms are unchanged . Patient provided IV metoprolol 3 times with improvement in HR to approximately 125. Patient updated on the results of their lab studies. Patient will benefit from in patient admission for further evaluation and management of their condition. P atient agreeable with plan for admission. Questions sought and answered. Hospitalist paged and has agreed with plan for admission. Patient admitted in stable condition. Medications dilTIAZem (Cardizem) injection 15 mg (has no administration in time range) fentaNYL (Sublimaze) injection 75 mcg (75 mcg IntraVENous Given 04/09/22 1620) etomidate (Amidate) injection 10 mg (10 mg IntraVENous Given 04/09/22 1620) etomidate (Amidate) injection (5 mg IntraVENous Given 04/09/22 1644) metoprolol tartrate (Lopressor) injection 5 mg (5 mg IntraVENous Given 04/09/22 1716) metoprolol tartrate (Lopressor) injection 5 mg (5 mg IntraVENous Given 04/09/22 1835) REVAL: CONSULTS: None PROCEDURES: Unless otherwise noted below, none Procedures Patients symptoms are consistent with sepsis, severe sepsis, or septic shock (If yes use .sepsiscoremeasure): FINAL IMPRESSION 1. Atrial fibrillation, unspecified type (HCC) DISPOSITION Admit 04/09/2022 07:05:41 PM PATIENT REFERRED TO: No follow-up provider specified. DISCHARGE MEDICATIONS: New Prescriptions No medications on file (Comment: Please note this report has been produced using speech recognition software and may contain errors related to that system including errors in grammar, punctuation, and spelling, as well as words and phrases that may be inappropriate. If there are any questions or concerns please feel freeto contact the dictating provider for clarification.) Miller Weems DO (electronically signed) Emergency Medicine Physician Miller Weems DO Resident 04/09/22 [id number] Emergency department Note* Scott Friend DO - 04/09/2022 3:35 PM EST Emergency Department Encounter [facility] EMERGENCY DEPT Patient: Linsey Jensen : 1965 Date of Evaluation: 04/09/2022 ED Supervising Physician: Scott Friend DO I independently examined and evaluated Linsey Jensen. This will serve as my Supervisory note and shared attestation. I did perform a substantive portion of the visit including all aspects of the Medical Decision Making. I wore appropriate PPE for the entirety of this encounter. In brief, Linsey Jensen is a 56 y.o. female that presents to the emergency department from an outpatient GI center where she was being sedated for colonoscopy when she went into atrial fibrillation with rapid ventricular response. No history of atrial fibrillation in the past. She was sent with a r hythm strip that showed her in sinus rhythm at about 2:45 PM. Focused exam: Vital signs noted. Well-appearing patient lying in bed, normal respiratory pattern without conversational dyspnea or respiratory distress. Normal speech and mental status. Heart tachycardic and irregularly irregular. Brief ED course/MDM: Informed consent for procedural sedation and cardioversion was obtained by me,patient clearly understood the risks, benefits and alternatives as I presented them to her. Husbandwas at bedside and he also verbalized understanding. I was present and supervising the sedation and attempted cardioversion performed by Dr. Wade, see his note for full details. 3 attempts at cardioversion were all unsuccessful. We subsequently attempted rate control, but after 6 doses of metoprolol 5 mg each, she was still between 110 125 bpm. A dose of Cardizem was given and the patient was hospitalized for further evaluation and treatment. All diagnostic, treatment, and disposition decisions were made by myself in conjunction with the Resident. I also supervised andrew portions of any procedures performed by the Resident. For all further details of the patient's emergency department visit, please see their documentation. (Comment: Please note this report has been produced using speech recognition software and may contain errors related to that system including errors in grammar, punctuation, and spelling, as well as words and phrases that may be inappropriate. If there are any questions or concerns please feel freeto contact the dictating provider for clarification.) Scott Friend DO [employer] Scott Friend DO 04/09/222028 [facility] [place] Work Phone: [phone] 308-995802-16-2023 Emergency department Note* Nirmala Mendiola RN - 04/09/2022 1:55 PM EST Pt ambulated to the bathroom and back without difficulty. Nirmala Mendiola RN 04/09/221601 [facility] note* Diagnosis Onset Date Resolution Status History of intestinal surgery acute Obesity acute Hypertension chronic [facility] Work Phone: evaluation note* Diagnosis Atrial fibrillation with RVR (CMS/HCC) (HCC) documented in this encounter [facility] note* Diagnosis Onset Date Resolution Status Obesity acute Paroxysmal atrial fibrillation acute Primary snoring acute Hypertension chronic Obstructive Sleep Apnea-Hypopnea Syndrome noneactive [facility] Work Phone: evaluation note* Diagnosis Persistent atrial fibrillation (HCC) Atrial fibrillation Primary hypertension Unspecified essential hypertension S/P partial resection of colon Other postprocedural status Acute cough documented in this encounter [facility] note* Diagnosis Persistent atrial fibrillation (HCC)- Primary Atrial fibrillation Primary hypertension Unspecified essential hypertension TATIANA on CPAP documented in this encounter [facility] note* Diagnosis Encounter for screening mammogram for malignant neoplasm of breast documented in this encounter [facility] note* Diagnosis Encounter for screening mammogram for malignant neoplasm of breast- Primary Encounter for screening mammogram for malignant neoplasm of breast documented in this encounter [facility] note* Diagnosis Persistent atrial fibrillation (HCC)- Primary Atrial fibrillation TATIANA on CPAP Primary hypertension Unspecified essential hypertension documented in this encounter [facility] note* Diagnosis Atrial fibrillation, unspecified type (HCC)- Primary Primary hypertension Unspecified essential hypertension Paroxysmal atrial fibrillation (HCC)- Primary Atrial fibrillation Primary hypertension Unspecified essential hypertension TATIANA on CPAP S/P partial resection of colon Other postprocedural status [facility] Diagnosis Atrial fibrillation, unspecified type (HCC)- Primary Primary hypertension Unspecified essential hypertension Persistent atrial fibrillation (HCC) Atrial fibrillation [facility] Diagnosis Atrial fibrillation, unspecified type (HCC)- Primary Primary hypertension Unspecified essential hypertension Persistent atrial fibrillation (HCC) Atrial fibrillation [facility] Diagnosis Atrial fibrillation, unspecified type (HCC)- Primary Primary hypertension Unspecified essential hypertension Encounter for screening mammogram for malignant neoplasm of breast [facility] Diagnosis Encounter for screening mammogram for malignant neoplasm of breast- Primary Encounter for screening mammogram for malignant neoplasm of breast [facility]* Diagnosis Atrial fibrillation, unspecified type (HCC)- Primary Atrial fibrillation, unspecified type (HCC) Hematochezia Blood in stool Hematochezia Blood in stool [facility]* Diagnosis Atrial fibrillation with rapid ventricular response (CMS/HCC) (HCC)- Primary Atrial fibrillation, unspecified type (HCC)- Primary Primary hypertension Unspecified essential hypertension [facility]* Diagnosis Atrial fibrillation, unspecified type (HCC)- Primary Primary hypertension Unspecified essential hypertension [facility]* Diagnosis Atrial fibrillation, unspecified type (HCC)- Primary Primary hypertension Unspecified essential hypertension Encounter for screening mammogram for malignant neoplasm of breast- Primary Encounter for screening mammogram for malignant neoplasm of breast [facility] Diagnosis Atrial fibrillation, unspecified type (HCC)- Primary Primary hypertension Unspecified essential hypertension Primary hypertension- Primary Unspecified essential hypertension Paroxysmal atrial fibrillation (HCC) Atrial fibrillation Primary hypertension Unspecified essential hypertension TATIANA on CPAP [facility]* Diagnosis Atrial fibrillation, unspecified type (HCC)- Primary Primary hypertension Unspecified essential hypertension Paroxysmal atrial fibrillation (HCC)- Primary Atrial fibrillation Primary hypertension Unspecified essential hypertension TATIANA on CPAP S/P partial resection of colon Other postprocedural status [facility]* Diagnosis Onset Date Resolution Status Admit Date Paroxysmal atrial fibrillation acute August 23, 2024 1:52pm Hypertension chronic August 23 1:52pm TATIANA (obstructive sleep apnea) chroni c August 23, 2024 1:52pm [facility] Work Phone: Hospital Discharge instructions* Attachments The following attachments cannot be sent through Care Everywhere. * Atrial Fibrillation (Kyrgyz) * Atrial Fibrillation Discharge Instructions (Kyrgyz) * Apixaban, ADULT (Kyrgyz) [facility] (n[facility]ative)* Consultation (Routine) - Pending Review Specialty Diagnoses / Procedures Referred By Contjaspal t Referred To Contact Pulmonology Diagnoses Atrial fibrillation, unspecified type (HCC) Procedures [place] OFFICE/OUTPATIENT [facility] 60-74 MINUTES Linsey Garza APRN - CNP [address] [place] [address] [address] [place] [address] Justo Porter [address] [place] [address] Referral ID Status Reason Start Date Expiration Date Visits Requested Visits Authorized [id number] Pending Review Specialty Services Required 04/29/2022 04/29/2023 1 1 [facility] for referral (narrative)No reason for referral information availableMedical [facility] Work Phone: Summary Purpose Family History No Family History Records Found Relationship Condition Age at Onset Recorded Date/T jamila grandmother Malignant neoplasm of colon Unknown father Malignant neoplasm Unknown Malignant neoplasm of bone Unknown Relationship Condition Age at Onset Recorded Date/T jamila grandmother Malignant neoplasm of colon Unknown father Malignant neoplasm Unknown Malignant neoplasm of bone Unknown Cardiac disease Unknown Advance Directives No Advanced Directives Records FoundDocuments on File Type Date 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 ACP-Advance Directive ACP-Power of Transport Coordinator Latest Code Status on File Code Status Date Activated Date Inactivated Comments Full Code 04/09/2022 8:13 PM 04/11/2022 7:00 PM Date Activated Date Inactivated Comments 04/09/2022 8:13 PM 04/11/2022 7:00 PM Latest Code Status on File Code Status Date Activated Date Inactivated Comments Full Code 04/09/2022 8:13 PM 04/11/2022 7:00 PM Chief Complaint and Reason for Visit Chief Complaint YEARLY CHK UP, MED R TAJ Reason for Visit History of intestina l surgery Obesity Hypertension Chief Complaint Sleep apnea CLAUSTROPHOBIC TATIANA Reason for Visit Obesity Paroxysmal atrial fibrillation Primary snoring Hypertension Obstructive Sleep Apnea-Hypopnea Syndrome Chief Complaint Sleep apnea CLAUSTROPHOBIC TATIANA TATIANA; AUTO CPAP *DEVICE TAGGED Reason for Visit Obesity Paroxysmal atrial fibrillation Primary snoring Hypertension Obstructive Sleep Apnea-Hypopnea Syndrome Chief Complaint Admit Date YEARLY August 23, 2024 1:52p m Reason for Visit Admit Date Paroxysmal atrial fibrillation August 23, 2024 1:52pm Hypertension August 23, 2024 1:52p m TATIANA (obstructive sleep apnea) August 23, 2024 1:52pm Chief Complaint Admit Date YEARLY August 23, 2024 1:52p m INTERNAL ORDER August 23, 2024 3:01p m Reason for Visit Admit Date Paroxysmal atrial fibrillation August 23, 2024 1:52pm TMJ (temporomandibular joint syndrome) J 2024 1:52pm Hypertension August 23, 2024 1:52p m TATIANA (obstructive sleep apnea) August 23, 2024 1:52pm Chief Complaint Admit Date YEARLY August 23, 2024 1:52p m INTERNAL ORDER August 23, 2024 3:01p m ESTABLISH (SELF) September 22, 2024 11: 02am Chief Complaint Admit Date YEARLY August 23, 2024 1:52p m INTERNAL ORDER August 23, 2024 3:01p m ESTABLISH (SELF) September 22, 2024 11: 02am Leg pain. Around knee. October 03, 2024 8:24am Reason for Visit Admit Date Paroxysmal atrial fibrillation August 23, 2024 1:52pm TMJ (temporomandibular joint syndrome) J valentín 2024 1:52pm Hypertension August 23, 2024 1:52p m TATIANA (obstructive sleep apnea) August 23, 2024 1:52pm Paroxysmal atrial fibrillation September 11:02am Hypertension September 22, 2024 11: 02am Knee pain, right October 03, 2024 8: 24am Additional Source Comments INFORMATION SOURCE (unrecogn ized section and content) DATE CREATED AUTHOR 08/18/2017 [facility] ([place]) DATE CREATED AUTHOR AUTHOR'S ORGANIZ ATION 11/27/2020 [facility] DATE CREATED AUTHOR AUTHOR'S ORGANIZ ATION 07/25/2024 [facility] DATE CREATED AUTHOR AUTHOR'S ORGANIZ ATION 10/14/2024 [facility] Goals (unrecognized section and content) Goals may be documented in a n alternate sectionGoals may be documented in an alternate sectionGoals may be documented in an alternate sectionGoals may be documented in an alternate sectionGoals may be documented in an alternate sectionGoals may be documented in an alternate sectionGoals may be documented in an alternate sectionGoals may be documented in an alternate section Reason for Visit (unrecogniz ed section and content) Reason Comments Follow-up EKG and BP Reason Comments Atrial Fibrillation Persistent Hypertension Sleep Apnea Cough Reason Comments Atrial Fibrillation Persistent Hypertension Sleep Apnea Reason Comments Atrial Fibrillation PAF Hypertension Sleep Apnea Reason Onset Date Comments Med Refill 01/21/2024 Reason Comments Med Refill Reason Comments Rapid Heart Rate Pt coming from [facility]. Pt was supposed to get colonoscopy. Pt was given 70 mg propofol and 50 mg of esmolol per EMS, states pt then went into a rapid heart rate. Pt denies a hx of afib, Pt denies any CP. Pt A/Ox4. Pt states she has been having rectal bleeding which is why she was supposed to get colonoscopy. Pt placed on tele monitor. Specialty Diagnoses / Procedures Referred By Dariana t Referred To Contact Diagnoses Atrial fibrillation, unspecified type ([place] [id number] 04/10/22 Active [facility] per online eff 02/22/21 AUTH REQ UM TO [facility] TO [phone] Jennyfer Dias MD [address] [place] [address], [address] [place] [address] [facility] Emergency Dept [address] [place] [id number] Referral ID Status Reason Start Date Expiration Date Visits Re quested Visits Authorized [id number] 1 1 Reason Onset Date Comments Appointment 04/13/2022 Reason Comments Weakness, Gen Pt states she has a new dx of afib in past few weeks, dx here. Pt states felt a bit off yesterday but had been working hard around the house, awakened this morning and extremely weak. Pt states felt off during the night but couldn't put it to words, pt on monitor and appears to be in afib RVR. Reason Comments Follow-up Atrial Fibrillation ER follow up Atrial Fibrillation Reason Onset Date Comments Med Refill 06/27/2024 Reason Onset Date Comments Med Refill 07/24/2024 Care Teams (unrecognized sec tion and content) Enrollment Eligibility Representative Relationship Specialty Start Date End Date Jacquie Agudelo [address] [place] [address] PCP - General 12/28/14 Team Status: Active Member Role Status Dates Dr. Jacquie Agudelo , DO Primary Care Provider Active Team Status: Inactive Member Role Status Dates Dr. Jacquie Agudelo , DO Primary Care Provider, Referr ing Provider Active Dr. Reza Gonzalez MD Attending Provider Active Team Status: Inactive Member Role Status Dates Dr. Jacquie Agudelo , DO Primary Care Provider Active Dr. Reza Gonzalez MD Attending Provider, Referring Provider Active Team Status: Active Member Role Status Dates Dr. Jacquie Agudelo , DO Primary Care Provider Active Dr. Reza Gonzalez MD Attending Provider, Referring Provider Active Team Status: Inactive Member Role Status Dates Dr. Jacquie Agudelo , DO Primary Care Provider Active Dr. Reza Gonzalez MD Attending Provider Active Enrollment Eligibility Representative Relationship Specialty Start Date End Date Jacquie Agudelo [address] [place] [address] PCP - General 12/28/14 Enrollment Eligibility Representative Relationship Specialty Start Date End Date Jacquie Agudelo [address] [place] [address] PCP - General 12/28/14 Enrollment Eligibility Representative Relationship Specialty Start Date End Date Jacquie Agudelo [address] [place] [address] PCP - General 12/28/14 Enrollment Eligibility Representative Relationship Specialty Start Date End Date Jacquie Agudelo [address] [place], [place] [id number] [phone] PCP - General 12/28/14 Enrollment Eligibility Representative Relationship Specialty Start Date End Date Jacquie Agudelo [address] [place] [id number] PCP - General 12/28/14 Enrollment Eligibility Representative Relationship Specialty Start Date End Date Jacquie Agudelo [address] [place] [address] PCP - General 12/28/14 Enrollment Eligibility Representative Relationship Specialty Start Date End Date Jacquie Agudelo [address] [place] [address] PCP - General 12/28/14 Enrollment Eligibility Representative Relationship Specialty Start Date End Date Jacquie Agudelo [address] [place] [address] PCP - General 12/28/14 Enrollment Eligibility Representative Relationship Specialty Start Date End Date Jacquie Agudelo [address] [place] [address] PCP - General 12/28/14 Enrollment Eligibility Representative Relationship Specialty Start Date End Date Jacquie Agudelo [address] [place] [address] PCP - General 12/28/14 Enrollment Eligibility Representative Relationship Specialty Start Date End Date Jacquie Agudelo [address] [place] [address] PCP - General 12/28/14 Enrollment Eligibility Representative Relationship Specialty Start Date End Date Jacquie Agudelo [address] [place] [address] PCP - General 12/28/14 Enrollment Eligibility Representative Relationship Specialty Start Date End Date Jacquie Agudelo [address] [place] [address] PCP - General 12/28/14 Enrollment Eligibility Representative Relationship Specialty Start Date End Date Jacquie Agudelo [address] [place], [place] [id number] 108- PCP - General 12/28/14 Enrollment Eligibility Representative Relationship Specialty Start Date End Date Jacquie Agudelo [address] [place] [address] PCP - General 12/28/14 Team Status: Active Member Role/Relationship Status Dates Dr. Jacquie Agudelo DO Primary Care Provider Active Team Status: Inactive Member Role/Relationship Status Dates Dr. Jacquie Agudelo DO Primary Care Provider Active Start: August 23, 2024 End: August 23, 2024 Dr. Jacquie Agudelo DO Attending Provider Active Start: August 23, 2024 End: August 23, 2024 Dr. Jacquie Agudelo DO Referring Provider Active Start: August 23, 2024 End: August 23, 2024 Team Status: Inactive Member Role/Relationship Status Dates Dr. Jacquie Agudelo DO Primary Care Provider Active Start: August 23, 2024 End: August 23, 2024 Dr. Jacquie Agudelo DO Attending Provider Active Start: August 23, 2024 End: August 23, 2024 Dr. Jacquie Agudelo DO Referring Provider Active Start: August 23, 2024 End: August 23, 2024 Team Status: Inactive Member Role/Relationship Status Dates Dr. Jacquie Agudelo DO Primary Care Provider Active Start: September 22, 2024 End: September 22, 2024 Dr. Jacquie Agudelo DO Referring Provider Active Start: September 22, 2024 End: September 22, 2024 Dr. Venkat Gonsalez MD Attending Provider Active S tart: September 22, 2024 End: September 22, 2024 Team Status: Inactive Member Role/Relationship Status Dates Dr. Jacquie Agudelo DO Primary Care Provider Active Start: October 03, 2024 End: October 03, 2024 Dr. Jacquie Agudelo DO Referring Provider Active Start: October 03, 2024 End: October 03, 2024 MAURIZIO Monzon Attending Provider Active Start: October 03, 2024 End: October 03, 2024 Scheduled Active and Recently Administ ered Medications (unrecognized section and content) Medication Order 04/09/2022 04/10/2022 04/11/2022 apixaban (Eliquis) tablet 5 mg 5 mg, Oral, 2 times daily, First dose on 04/11/22 at 1245, Anticoagulant 1448 (Given - Provider: Christal Lara, KATHRYN) etomidate (Amidate) injection 10 mg (COMPLETED) 10 mg, IntraVENous, Once, On Delma 04/09/22 at 1620, For 1 dose, General Anesthetic - do not give without appropriate ventilation support. 1620 (Given - Provider: Nirmala Mendiola RN - Comment: given by faustina) fentaNYL (Sublimaze) injection 75 mcg (COMPLETED) 75 mcg, IntraVENous, Once, On Delma 04/09/22 at 1620, For 1 dose, If oral and IV narcotics ordered, use oral first and only use IV if oral is ineffective or cannot take oral. Do Not give oral and IV within 1 hour of each other unless specifically ordered. 1620 (Given - Provider: Nirmala Mendiola RN - Comment: given by Faustina) heparin injection 4,000 Units (COMPLETED) 4,000 Units, IntraVENous, Once, On Delma 04/09/22 at 2034, For 1 dose, Initial one time bolus 2153 (Given - Provider: Aristides Alamo RN) metoprolol tartrate (Lopressor) tablet 100 mg (COMPLETED) 100 mg, Oral, Once, On Delma 04/09/22 at 1945, For 1 dose 2030 (Given - Provider: Aristides Alamo RN) metoprolol tartrate (Lopressor) tablet 25 mg (CANCELED) 25 mg, Oral, 2 times daily, First dose (after last modification) on Wed04/10/22 at 0900, Hold for HR<60 0838 (Given - Provider: Angela Hein LPN) metoprolol tartrate (Lopressor) tablet 50 mg 50 mg, Oral, 2 times daily, First dose (after last modification) on Wed04/10/22 at 2100, Hold for HR<60 2028 (Given - Provider: Richie Chong RN) 1029 (Given - Provider: Christal Lara, KATHRYN) polyethylene glycol (GoLYTELY) solution 2,000 mL 2,000 mL, Oral, See admin instructions, Starting on Wed04/10/22 at 1206, For 2 doses, Preprocedure, Begin at 1600 Give 240ml (approx 8 oz) po every 10 minutes until 2 liters are consumed, then 4 hours priors to procedure give second 2 liters in same manner until complete, rapid drinking of each portion is preferred to drinking small amounts continuously 1652 (Given - Provider: Manasa Angel RN) potassium chloride CR (Klor-Con M10) ER tablet 40 mEq (COMPLETED) 40 mEq, Oral, Once, On Delma 04/09/22 at 2245, For 1 dose, Best given with food and plenty of water to minimize gastric irritation. Do not crush or chew. 2343 (Given - Provider: April Bustillo RN) sodium chloride 0.9% (NS) flush 10 mL 10 mL, IntraVENous, Every 12 hours scheduled (2 times per day), First dose on Wed04/10/22 at 1150 1150 (Canceled Entry - Provider: Manasa Angel RN)2100 (Not Given - Provider: Richie Chong RN - Reason: IV Fluids Infusing) 0900 (Not Given - Provider: Christal Lara RN - Reason: Other) sodium chloride 0.9% (NS) flush 10 mL 10 mL, IntraVENous, Every 12 hours scheduled (2 times per day), First dose on Wed04/11/22 at 0945, Preprocedure 0945 (Not Given - Provider: Christal Lara, KATHRYN - Reason: Other) Continuous Medication Order 04/09/2022 04/10/2022 04/11/2022 heparin 25,000 units in dextrose 5% 250mL infusion (premix) (CANCELED) 5-30 Units/kg/hr 99.8 kg (4.99-29.94 mL/hr, rounded to 5-29.9 mL/hr), IntraVENous, Continuous, Starting on Dlema 04/09/22 at 2034, LOW Dose Heparin Weight Based Dosing (CAD/STEMI/NSTEMI/AFIB /ECMO) Bolus 60 units/kg IV x 1 (max 4000 units), then 12 units/kg/hr UNLESS due to patient weight rate exceeds 1000 units/hour (max initial rate) Initial rate for this patient: 10 units/kg/hr = 1000 units/hr = 10 mL/hr aPTT < 30 Heparin Full re-bolus Increase infusion by 2 units/kg/hr; notify prescriber aPTT 30-49.9 Heparin Half re-bolus Increase infusion by 1 unit/kg/hr aPTT 50-70.9 No bolus No change aPTT 71-95.9 Hold heparin for 60 min Decrease infusion by 1 units/kg/hr aPTT > 95.9 Hold heparin for 60 min Decrease infusion by 2 units/kg/hr; notify prescriber Check aPTT 6 hours after initiation and 6 hours after every dose change; every 12 hrs x 1 day after 2 consecutive therapeutic aPTT; daily after every 12 hrs x 1 day is completed. 2154 (New Bag - Provider: Aristides Alamo RN) 0626 (Rate/Dose Change - Provider: April Bustillo RN)1253 (Rate/Dose Change - Provider: Linh Robles RN)1851 (New Bag - Provider: Manasa Angel RN)2030 (Rate/Dose Change - Provider: Richie Chong, KATHRYN) 0400 (Stopped - Provider: Richie Chong RN - Comment: for colonoscopy) sodium chloride 0.9 % infusion () 75 mL/hr, IntraVENous, Continuous, Starting on Delma 04/09/22 at 2000, For 12 hours 2013 (New Bag - Provider: Aristides Alamo RN) 0813 (Stopped - Provider: Linh Robles, KATHRYN)0900 (Stopped - Provider: Linh Robles RN) PRN Medication Order 04/09/2022 04/10/2022 04/11/2022 acetaminophen (Tylenol) suppository 650 mg(Linked Group 1) 650 mg, Rectal, Every 6 hours PRN, mild pain (1-3), fever, For temp greater than 100.4 F (38 C), Starting on Delma 04/09/22 at 2013, Administer if oral route cannot be used. Maximum dose of acetaminophen is 4000 mg from all sources in 24 hours. acetaminophen (Tylenol) tablet 650 mg(Linked Group 1) 650 mg, Oral, Every 6 hours PRN, mild pain (1-3), fever, For temp greater than 100.4 F (38 C), Starting on Delma 04/09/22 at 2013, Maximum dose of acetaminophen is 4000 mg from all sources in 24 hours. dilTIAZem (Cardizem) injection 15 mg (CANCELED) 15 mg, IntraVENous, Every 30 min PRN, tachycardia, Starting on Delma 04/09/22 at 1851, For 2 doses, Administer over at least 2 minutes. 1917 (Given - Provider: Aristides Alamo RN) etomidate (Amidate) injection (COMPLETED) IntraVENous, Code/trauma/sedation medication, Starting on Delma 04/09/22 at 1644 1644 (Given - Provider: Aristides Alamo, KATHRYN) heparin injection 2,000 Units 2,000 Units, IntraVENous, As needed, heparin dosing algorithm, Starting on Delma 04/09/22 at 203, Half dose re-bolus based on pharmacy algorithm 0626 (Given - Provider: April Bustillo RN)1251 (Given - Provider: Linh Robles RN)2028 (Given - Provider: Richie Chong RN) heparin injection 4,000 Units 4,000 Units, IntraVENous, As needed, per heparin dosing algorithm, Starting on Delma 04/09/22 at 2032, Full dose re-bolus based on pharmacy algorithm metoprolol tartrate (Lopressor) injection 5 mg (COMPLETED) 5 mg, IntraVENous, Every 5 min PRN, tachycardia, Starting on Delma 04/09/22 at 1649, For 3 doses 1656 (Given - Provider: Aristides Alamo RN)1702 (Given - Provider: Aristides Alamo RN)1716 (Given - Provider: Aristides Alamo RN - Comment: change in time given) metoprolol tartrate (Lopressor) injection 5 mg (COMPLETED) 5 mg, IntraVENous, Every 5 min PRN, tachycardia, for tachycardia above 110, Starting on Delma 04/09/22 at 1741, For 3 doses 1802 (Given - Provider: Aristides Alamo RN)1814 (Given - Provider: Aristides Alamo, KATHRYN)1835 (Given - Provider: Aristides Alamo, RN) ondansetron (Zofran) injection 4 mg(Linked Group 2) 4 mg, IntraVENous, Every 6 hours PRN, nausea, vomiting, Starting on Delma 04/09/22 at 2012, 1st Line. Give IV if patient is unable to take orally. If inadequate response within 60 minutes, proceed to next-line agent or contact provider if no further options ordered. ondansetron ODT (Zofran-ODT) disintegrating tablet 4 mg(Linked Group 2) 4 mg, Oral, Every 8 hours PRN, nausea, vomiting, Starting on Delma 04/09/22 at 2012, 1st Line. If inadequate response within 60 minutes, proceed to next-line agent or contact provider if no further options ordered. Patient should allow tablet to dissolve on tongue. Do not remove from blister pack until just before administering. polyethylene glycol (PEG) 3350 (Miralax) packet 17 g 17 g, Oral, Daily PRN, constipation, Starting on Delma 04/09/22 at 2012, 1st line for treatment of constipation - give scheduled if no bowel movement in past 24 hours. sodium chloride 0.9 % infusion 5-250 mL/hr, IntraVENous, PRN, if patient receiving piggyback infusions and maintenance fluids are not ordered OR KVO fluids to protect IV site / prevent frequent line interruptions/ long duration, Starting on Wed04/10/22 at 1144, For piggyback infusion, administer at same rate as piggyback for a total of 25 mL. Enter 25 mL into dose field and piggyback rate into rate field of order. If piggyback is infusing at a rate less than 100 mL/hr, enter 25 mL into dose field and 100 mL/hr into rate field of order. For KVO fluids, enter rate of 20 mL/hr or less into rate field of order. sodium chloride 0.9 % infusion 5-250 mL/hr, IntraVENous, PRN, if patient receiving piggyback infusions and maintenance fluids are not ordered OR KVO fluids to protect IV site / prevent frequent line interruptions/ long duration, Starting on Wed04/11/22 at 0938, Preprocedure, For piggyback infusion, administer at same rate as piggyback for a total of 25 mL. Enter 25 mL into dose field and piggyback rate into rate field of order. If piggyback is infusing at a rate less than 100 mL/hr, enter 25 mL into dose field and 100 mL/hr into rate field of order. For KVO fluids, enter rate of 20 mL/hr or less into rate field of order. sodium chloride 0.9% (NS) flush 10 mL 10 mL, IntraVENous, PRN, line care, Starting on Wed04/10/22 at 1144, After every IV line use sodium chloride 0.9% (NS) flush 10 mL 10 mL, IntraVENous, PRN, line care, Starting on 04/11/22 at 0938, Preprocedure, After every IV line use Linked Groups Order Group 1: acetaminophen (Tylenol) tablet 650 mgJump to med 650 mg, Oral, Every 6 hours PRN, mild pain (1-3), fever, For temp greater than 100.4 F (38 C), Starting on Delma 04/09/22 at 2012
Maximum dose of acetaminophen is 4000 mg from all sources in 24 hours.
Or acetaminophen (Tylenol) suppository 650 mgJump to med 650 mg, Rectal, Every 6 hours PRN, mild pain (1-3), fever, For temp greater than 100.4 F (38 C), Starting on Delma 04/09/22 at 2012
Administer if oral route cannot be used. Maximum dose of acetaminophen is 4000 mg from all sources in 24 hours.
Group 2: ondansetron ODT (Zofran-ODT) disintegrating tablet 4 mgJump to med 4 mg, Oral, Every 8 hours PRN, nausea, vomiting, Starting on Delma 04/09/22 at 2012
1st Line. If inadequate response within 60 minutes, proceed to next-line agent or contact provider if no further options ordered. Patient should allow tablet to dissolve on tongue. Do not remove from blister pack until just before administering.
Or ondansetron (Zofran) injection 4 mgJump to med 4 mg, IntraVENous, Every 6 hours PRN, nausea, vomiting, Starting on Delma 04/09/22 at 2012
1st Line. Give IV if patient is unable to take orally. If inadequate response within 60 minutes, proceed to next-line agent or contact provider if no further options ordered.
Scheduled Medication Order 04/24/2022 04/25/2022 04/26/2022 metoprolol tartrate (Lopressor) injection 5 mg (COMPLETED) 5 mg, IntraVENous, Once, On 04/26/22 at 1000, For 1 dose 0940 (Given - Provid er: Mindy Aquino RN) metoprolol tartrate (Lopressor) injection 5 mg (COMPLETED) 5 mg, IntraVENous, Once, On 04/26/22 at 1000, For 1 dose 0951 (Given - Provid er: Mindy Aquino RN) metoprolol tartrate (Lopressor) injection 5 mg (COMPLETED) 5 mg, IntraVENous, Once, On 04/26/22 at 1010, For 1 dose 1005 (Given - Provid er: Mindy Aquino RN) metoprolol tartrate (Lopressor) tablet 50 mg (COMPLETED) 50 mg, Oral, Once, On 04/26/22 at 0940, For 1 dose 1005 (Given - Provid er: Mindy Aquino RN) FOR RECORDS PERTAINING TO PATIENTS WHO ARE OR HAVE BEEN ENROLLED IN A CHEMICAL DEPENDENCY/SUBSTANCEABUSE PROGRAM, SOME INFORMATION MAY BE OMITTED. This clinical summary was aggregated from multiple sources. Caution should be exercised in using it in the provision of clinical care. This summary normalizes information from multiple sources, and as a consequence, information in this document may materially change the coding, format and clinical context of patient data. In addition, data may be omitted in some cases. CLINICAL DECISIONS SHOULD BE BASED ON THE PRIMARY CLINICAL RECORDS. [facility]. provides no warranty or guarantee of the accuracy or completeness of information in this document.
--- NOTE | 2024-10-17 06:34 | ECHOD_ITS ---
Reason For Study Reason For Study: ATRIAL FIBRILLATION Procedure This was a 2D Doppler, Color Flow transthoracic echocardiogram. Exam performed in department. Left Ventricle Normal LV size. Left ventricular systolic function is normal. The left ventricular ejection fraction is 60 %. No regional wall motion abnormalities noted. Right Ventricle Normal RV size. Normal systolic function. Atria Normal left atrium. Normal right atrium. Mitral Valve Normal mitral valve. Tricuspid Valve Normal tricuspid valve. Aortic Valve Trisinus/trileaflet aortic valve. Pulmonic Valve Normal pulmonic valve. Great Vessels Normal aortic root. The pulmonary artery is normal size. Inferior vena cava collapse with respiration. Pericardium/Pleural No pericardial effusion. MMode/2D Measurements & Calculations LVIDd: 5.1 cm IVSd: 1.1 cm LVOT diam: 2.1 cm LVIDs: 3.2 cm LVPWd: 1.0 cm LVOT area: 3.5 cm2 RVDd: 3.4 cm FS: 36.6 % asc Aorta Diam: 3.2 cm LAV(MOD-bp): 59.3 ml LVAd ap4: 26.9 cm2 LAV(MOD-bp) Indexed: 26.6 ml/m2 LVLd ap4: 7.8 cm LAV(MOD-sp2): 63.1 ml EDV(MOD-sp4): 74.7 ml LAV(MOD-sp4): 49.8 ml EDV(sp4-el): 79.0 ml LVAs ap4: 14.5 cm2 LVLs ap4: 6.7 cm ESV(MOD-sp4): 26.3 ml ESV(sp4-el): 26.8 ml EF(MOD-sp4): 64.8 % EF(sp4-el): 66.1 % LVAd ap2: 28.2 cm2 SV(MOD-sp4): 48.3 ml SV(MOD-sp2): 42.4 ml LVLd ap2: 8.7 cm SI(MOD-sp4): 21.7 ml/m2 SI(MOD-sp2): 19.1 ml/m2 EDV(MOD-sp2): 74.8 ml EDV(sp2-el): 77.4 ml LVAs ap2: 16.4 cm2 LVLs ap2: 7.1 cm ESV(MOD-sp2): 32.3 ml ESV(sp2-el): 32.4 ml EF(MOD-sp2): 56.8 % SV(sp4-el): 52.2 ml Ao sinus diam: 2.[address] Junction: 2.5 cm LA dimension(2D): 4.8 cm LA A4 area: 18.0 cm2 RA A4 area: 12.4 cm2 TAPSE: 1.7 cm Time Measurements MV dec time: 0.18 sec Doppler Measurements & Calculations MV E max orville: 79.2 cm/sec Lat Peak E' Orville: 10.0 cm/sec Med Peak E' [place]ville: 9.0 cm/sec MV A max orville: 102.9 cm/sec E/E' lat: 7.9 E/E' med: 8.8 MV E/A: 0.77 MV dec slope: 440.5 cm/sec2 Ao V2 max: 177.7 cm/sec LV V1 max: 131.8 cm/sec Ao max P.6 mmHg LV V1 max P.0 mmHg Ao V2 mean: 119.3 cm/sec LV V1 mean P.4 mmHg Ao mean P.6 mmHg LV V1 mean: 98.6 cm/sec Ao V2 VTI: 38.8 cm LV V1 VTI: 32.1 cm AV (velocity ratio): 0.83 JAYCOB(I,D): 2.9 cm2 JAYCOB(V,D): 2.6 cm2 SV(LVOT): 113.0 ml PA V2 max: 129.0 cm/sec TR max orville: 224.6 cm/sec TR max P.2 mmHg ECHO/Echo Complete Interpretation Summary Normal LV size. Left ventricular systolic function is normal. The left ventricular ejection fraction is 60 %. Structurally normal valves. Ordering Physician: Venkat Gonsalez Referring Physician: Venkat Gonsalez MD Performed By: Dana Flowers, JENNIFER
--- NOTE | 2024-10-17 14:20 | STRESSREP ---
Stress Test Report Exercise myocardial perfusion stress test. 58-year-old lady with a history of atrial fibrillation. Stress protocol: Resting EKG demonstrates normal sinus rhythm with a rate of 59 bpm resting blood pressure is 162/88 mmHg. The patient exercised according to the regular Justo protocol for a total duration of 8 minutes attaining a maximum heart rate of 141 bpm which was 88% of maximum predicted heart rate; the maximum workload was 10.1 metabolic equivalents. At rest there were no ST or T wave changes noted to suggest ischemia and at peak exercise upsloping ST changes only were noted which did not meet the criteria for ischemia. No clinical angina was noted the test was terminated due to the target heart rate being achieved/fatigue. The peak blood pressure was 180/102 mmHg. Rate-pressure product was 22,600. Myocardial perfusion protocol. 14.8 mCi of technetium 99m sestamibi was injected at rest. The patient exercised according to regular Justo protocol for total duration of 8 minutes and at peak exercise 44.4 mCi of technetium 99m sestamibi was injected stress images were obtained stress and rest images were reconstructed in comparing the short axis vertical long and horizontal long axis. Gated images were also obtained. Perfusion SPECT analysis: Review of the stress images demonstrate normal uptake of tracer noted in all areas of the myocardium. The resting images similarly demonstrate normal uptake of tracer noted in all areas of the myocardium. No areas of reversibility are noted to suggest ischemia no previous infarct was noted. Gated SPECT analysis: The gated ejection fraction is 75%. Conclusion: Normal exercise myocardial perfusion stress test at a high workload No atrial fibrillation noted.
== END | disposition home or self-care (01) ==
LOC: CVS 06:30
PROVIDERS: PCP Family Medicine; Referring Provider Internal Medicine Cardiovascular Disease; Visit Provider Internal Medicine Cardiovascular Disease
DX: I48.0 Paroxysmal atrial fibrillation (principal)
CPT/HCPCS: 78452; 93017; 93306; A9500; A4216

== ENCOUNTER 2024-10-25 15:11 | Outpatient (CLI) | payer OTHER, SELFPAY ==
[2024-10-29 14:08] LABS: HPV APTIMA, High Risk Negative (Negative)
== END 2024-10-25 23:59 | disposition home or self-care (01) ==
LOC: LABSPEC 15:13
PROVIDERS: PCP Family Medicine; Visit Provider Family Medicine
DX: Z12.4 Encounter for screening for malignant neoplasm of cervix (principal)
CPT/HCPCS: 87624; 88175; G0145